=== PATIENT | male | born 1940 | race Caucasian/White ===

== ENCOUNTER → 2019-08-07 | Outpatient (CLI) | payer MEDICARE ==
--- NOTE | 2019-08-08 19:14 | RADIOLOGY REPORT (SQ) ---
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 TECHNIQUE: Blood glucose level was verified. Above dose of FDG was injected intravenously. 2-D seg mented attenuation correction images were obtained from the base of the skull to the midthighs. Nonc ontrast CT images were obtained for attenuation correction and fusion with emission images. CT image s were performed without oral or intravenous contrast and are not sensitive for parenchymal lesions. A series of overlapping emission PET images were obtained. Images reviewed and manipulated at [facility] work station by the radiologist. Images stored on PACS. LIMITATIONS: None. FINDINGS: HEAD AND NECK: No areas of abnormal metabolic activity in the soft tissues of the head and neck. CHEST: A spiculated left lower lobe nodule is present on axial image 96/303, 2 cm in diameter with PEREZ V of 8.8, highly suspicious for malignancy. No left hilar or mediastinal metabolically active enlarged lymph nodes. Patient is post right-sided radiation therapy with bandlike scarring in the right mid lung. Radiothe rapy treatment markers over the anterior right upper lobe are present on image 73 without recurrent m ass. No abnormal metabolic activity over the right hilum. There is a moderate size right pleural effusion. No right pleural metabolic activity is seen ABDOMEN AND PELVIS: No areas of abnormal metabolic activity in the abdomen or pelvis. Expected physi ologic activity is present in the genitourinary system and bowel. PROXIMAL LOWER EXTREMITIES: No areas of abnormal metabolic activity in the soft tissues of the lower extremities. BONES: No abnormal metabolic activity in the visualized skeleton. ADDITIONAL CT FINDINGS: Gynecomastia. Aortic valve replacement. 6 cm right midpole renal cortical c yst OTHER: Liver background activity 2.6 SUV. Blood pool background activity 2.0 SUV IMPRESSION: New 2 cm spiculated nodule in the left lower lobe with SUV of 8.8 highly suspicious for malignancy. Moderate right pleural effusion with old post therapeutic changes in the right hemithorax. No hyperm etabolic lesions in the right chest worrisome for recurrent disease. TECHNICAL DOCUMENTATION: JOB ID: [id number] [employer]- All Rights Reserved Reading location - IP/workstation name: [email or web address]
== END ==
LOC: RAD 15:40
PROVIDERS: ATTEND Internal Medicine
DX: C34.2 Malignant neoplasm of middle lobe, bronchus or lung (principal)
CPT/HCPCS: 78815; A9552

== ENCOUNTER → 2019-11-22 | Outpatient (CLI) | payer MEDICARE ==
[2019-11-22 08:50] LABS: ABSOLUTE BASOPHILS # (AUTO) 0.1 10^3/uL (0.0-0.2); ABSOLUTE EOSINOPHILS # (AUTO) 0.2 10^3/uL (0.0-0.6); ABSOLUTE LYMPHOCYTES (AUTO) 1.2 10^3/uL (0.5-4.7); ABSOLUTE MONOCYTES (AUTO) 0.6 10^3/uL (0.1-1.4); ABSOLUTE NEUT (AUTO) 7.7 10^3/uL (1.7-8.2); BASOPHILS % (AUTO) 0.8 % (0-2); EOSINOPHILS % (AUTO) 1.8 % (0-6); HEMATOCRIT 43.8 % (37.9-51.0); LYMPHOCYTES % (AUTO) 12.3 % (13-45); MEAN CORPUSCULAR HEMOGLOBIN 31.9 pg (27.0-33.4); MEAN CORPUSCULAR HGB CONC 34.3 g/dL (32.0-36.0); MEAN CORPUSCULAR VOLUME 93 fl (80-97); MONOCYTES % (AUTO) 6.3 % (3-13); PLATELET COUNT 199 10^3/uL (150-450); RED BLOOD COUNT 4.72 10^6/uL (4.35-5.55); SEGMENTED NEUTROPHILS % (AUTO) 78.8 % (42-78); TOTAL CELLS COUNTED % (AUTO) 100 %; WHITE BLOOD COUNT 9.7 10^3/uL (4.0-10.5)
[2019-11-22 09:11] LABS: ALKALINE PHOSPHATASE 85 U/L (38-126); ANION GAP 6 (5-19); ASPARTATE AMINO TRANSFERASE 26 U/L (17-59); BILIRUBIN,DIRECT 0.3 mg/dL (0.0-0.4); BILIRUBIN,TOTAL 0.5 mg/dL (0.2-1.3); BLOOD UREA NITROGEN 22 mg/dL (7-20); CALCIUM 9.6 mg/dL (8.4-10.2); CARBON DIOXIDE 31 mmol/L (22-30); CHLORIDE 105 mmol/L (98-107); CHOLESTEROL 181.13 mg/dL (0-200); GLUCOSE 108 mg/dL (75-110); POTASSIUM 4.9 mmol/L (3.6-5.0); TOTAL PROTEIN 7.4 g/dL (6.3-8.2); TRIGLYCERIDES 161 mg/dL (<150)
[2019-11-22 09:22] LABS: DIRECT LDL 97 mg/dL (<100)
[2019-11-22 09:28] LABS: VLDL CHOLESTEROL 32.2 mg/dL (10-31)
--- NOTE | 2019-11-22 12:10 | RADIOLOGY REPORT (SQ) ---
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 TECHNIQUE: CT scan of the chest performed using helical scanning technique with dynamic intravenous contrast injection. Images reviewed with lung, soft tissue and bone windows. Reconstructed coronal a nd sagittal MPR images reviewed. All images stored on PACS. CT scan of the abdomen and pelvis performed with intravenous and with oral contrastusing helical scan ghada technique with dynamic intravenous contrast injection. Images reviewed with lung, soft tissue a nd bone windows. Reconstructed coronal and sagittal MPR images reviewed. Delayed images for evaluat ion of the urinary system also acquired and evaluated. All images stored on PACS. All CT scanners at this facility use dose modulation, iterative reconstruction, and/or weight based d osing when appropriate to reduce radiation dose to as low as reasonably achievable (ALARA). [facility]: Dose Right [facility]: CareDose [facility]: Dose Right [facility]: Teradose 4D [facility]: [employer] RADIATION DOSE: CT Rad equipment meets quality standard of care and radiation dose reduction techniq ues were employed. CTDIvol: 9.5 - 9.8 mGy. DLP: 1444 mGy-cm. . LIMITATIONS: None. FINDINGS: CHEST: LUNGS AND PLEURA: Scar in the right upper lobe with regional air bronchograms and associated volume l oss, density extending along the bronchovascular structures. This looks stable compared to July. Stable moderate right pleural effusion also noted. Spiculated nodule in the left lower lobe looks slightly smaller. On today's study this is up to 1.7 cm transverse dimension. Previously just over 2 cm maximal dimension. No developing left lung lesions. HILAR AND MEDIASTINAL STRUCTURES: No identified masses or abnormal nodes. HEART AND VASCULAR STRUCTURES: Previous aortic surgery. The ascending aorta is mildly ectatic at 3.9 cm. This looks stable, however. No dissection. Great vessel origins are patent. No central pulmo nary embolus detected. No pericardial effusion. HARDWARE: None. THYROID AND OTHER SOFT TISSUES: No masses. No adenopathy. BONES: No significant finding. OTHER: No other significant finding. ABDOMEN AND PELVIS: LIVER: Normal size. No masses. No dilated ducts. SPLEEN: Normal size. No focal lesions. PANCREAS: No masses. No significant calcifications. No adjacent inflammation or peripancreatic fluid collections. Pancreatic duct not dilated. GALLBLADDER: No identified stones by CT criteria. No inflammatory changes to suggest cholecystitis. ADRENAL GLANDS: No significant masses or asymmetry. RIGHT KIDNEY AND URETER: Cysts. No solid mass or large stones or evidence of obstruction. LEFT KIDNEY AND URETER: Similar findings to the right kidney. AORTA AND VESSELS: Atherosclerotic without aneurysm or dissection. No arterial occlusion. The venou s clot detected. RETROPERITONEUM: No retroperitoneal adenopathy, hemorrhage or masses. BOWEL AND PERITONEAL CAVITY: No masses or inflammatory changes. No free fluid or peritoneal masses. APPENDIX: Normal. ABDOMINAL WALL: No masses. No hernias. PELVIS: No mass or free fluid. Normal bladder. BONES: No significant or acute findings. OTHER: No other significant finding. IMPRESSION: 1. Left lung lesion that looks slightly smaller compared to July PET study. 2. Remaining lung changes are stable. Includes scarring in the right upper lobe with moderate right pleural effusion, as before. 3. No developing abdominopelvic metastases suggested. TECHNICAL DOCUMENTATION: JOB ID: [id number] Quality ID # [id number]: Final reports with documentation of one or more dose reduction techniques (e.g., Au tomated exposure control, adjustment of the mA and/or kV according to patient size, use of iterative reconstruction technique) 2010 [employer]- All Rights Reserved Reading location - IP/workstation name: [email or web address]
== END ==
LOC: RAD 08:14
PROVIDERS: ATTEND Internal Medicine
DX: C34.2 Malignant neoplasm of middle lobe, bronchus or lung (principal); E78.5 Hyperlipidemia, unspecified; J44.9 Chronic obstructive pulmonary disease, unspecified; I25.10 Atherosclerotic heart disease of native coronary artery without angina pectoris; Z79.899 Other long term (current) drug therapy; I35.0 Nonrheumatic aortic (valve) stenosis
CPT/HCPCS: 36415; 71260; 74177; 80053; 80061; 83735; 84443; 85025

== ENCOUNTER 2019-12-13 15:22 | Inpatient (IN) | payer MEDICARE ==
[2019-12-13 15:55] LABS: HEMATOCRIT 36.7 % (37.9-51.0); HEMOGLOBIN 12.4 g/dL (13.5-17.0); MEAN CORPUSCULAR HEMOGLOBIN 31.1 pg (27.0-33.4); MEAN CORPUSCULAR HGB CONC 33.8 g/dL (32.0-36.0); MEAN CORPUSCULAR VOLUME 92 fl (80-97); PLATELET COUNT 129 10^3/uL (150-450); RED BLOOD COUNT 3.99 10^6/uL (4.35-5.55); RED CELL DISTRIBUTION WIDTH 14.7 % (11.5-14.0); WHITE BLOOD COUNT 15.4 10^3/uL (4.0-10.5)
--- NOTE | 2019-12-13 15:59 | RADIOLOGY REPORT (SQ) ---
EXAM DESCRIPTION: CHEST SINGLE VIEW COMPLETED DATE/TIME: 12/13/2019 3:37 pm REASON FOR STUDY: sob COMPARISON: Chest CT 11/22/2019. EXAM PARAMETERS: NUMBER OF VIEWS: One view. TECHNIQUE: Single frontal radiographic view of the chest acquired. RADIATION DOSE: NA LIMITATIONS: None. FINDINGS: LUNGS AND PLEURA: Pleural and parenchymal scarring in the right lung status post partial r ight pneumonectomy. No evidence of superimposed pneumonia or pulmonary edema. MEDIASTINUM AND HILAR STRUCTURES: Stable. HEART AND VASCULAR STRUCTURES: Heart normal in size. Normal vasculature. BONES: No acute findings. HARDWARE: None in the chest. OTHER: No other significant finding. IMPRESSION: Postsurgical and radiation changes. TECHNICAL DOCUMENTATION: JOB ID: [id number] 2010 [employer]- All Rights Reserved Reading location - IP/workstation name: [email or web address]
[2019-12-13 16:03] LABS: PROTHROMBIN TIME 17.3 SEC (11.4-15.4)
[2019-12-13 16:10] LABS: ALBUMIN 3.4 g/dL (3.5-5.0); ALKALINE PHOSPHATASE 88 U/L (38-126); ANION GAP 11 (5-19); ASPARTATE AMINO TRANSFERASE 38 U/L (17-59); BILIRUBIN,DIRECT 0.5 mg/dL (0.0-0.4); BILIRUBIN,TOTAL 1.1 mg/dL (0.2-1.3); BLOOD UREA NITROGEN 38 mg/dL (7-20); CALCIUM 8.4 mg/dL (8.4-10.2); CARBON DIOXIDE 24 mmol/L (22-30); CHLORIDE 96 mmol/L (98-107); GLUCOSE 97 mg/dL (75-110); POTASSIUM 4.2 mmol/L (3.6-5.0); TOTAL PROTEIN 6.5 g/dL (6.3-8.2)
--- NOTE | 2019-12-13 16:17 | ER Document Report ---
ED Medical Screen (RME) - General Chief Complaint: Shortness Of Breath Stated Complaint: SHORTNESS OF BREATH/ALTERED MENTAL STATUS Time Seen by Provider: 12/13/19 16:09 Primary Care Provider: AYAN YA MD [Primary Care Provider] - Follow up as needed Information source: Transfer Record Notes: Patient presents with shortness of breath that started yesterday. Patient has had dark urine that is malodorous. Patient with a history of lung cancer and COPD. Patient had a temperature at home of 101 and was given Tylenol per EMS. I have greeted and performed a rapid initial assessment of this patient. A comprehensive ED assessment and evaluation of the patient, analysis of test resu lts and completion of the medical decision making process will be conducted by additional ED providers. TRAVEL OUTSIDE OF THE [place] IN LAST 30 DAYS: No - Related Data Allergies/Adverse Reactions: No Known Allergies Allergy (Verified 12/13/19 16:03) Physical Exam - Respiratory Respiratory status: Tachypnea Breath sounds: Nonproductive cough Course - Laboratory Result Diagrams: 12/13/19 15:28 12/13/19 15:28 Laboratory results interpreted by me: 12/13/19 12/13/19 15:28 15:28 PT 17.3 H Sodium 130.8 L Chloride 96 L BUN 38 H Creatinine 1.45 H Est GFR ( Amer) 57 L Est GFR (MDRD) Non-Af 47 L Direct Bilirubin 0.5 H Albumin 3.4 L Doctor's Discharge - Discharge Referrals: AYAN YA MD [Primary Care Provider] - Follow up as needed
[2019-12-13] MEDS ORDERED: ALBUTEROL SULFATE HFA (90 MCG/PUFF) 8 GM MDI (1 MDI/ER DISP) IH ONE (16:18)
[2019-12-13] MEDS ORDERED: NORMAL SALINE 1000 ML 1,000 ML IV ONE ×3 (16:18→22:03)
[2019-12-13 16:38] LABS: ABSOLUTE MONOCYTES # (MANUAL) 0.9 10^3/uL (0.1-1.4); BAND NEUTROPHILS % (MANUAL) 9 % (3-5); BASOPHILS % (MANUAL) 0 % (0-2); EOSINOPHILS % (MANUAL) 0 % (0-6); LYMPHOCYTES % (MANUAL) 13 % (13-45); MONOCYTES % (MANUAL) 6 % (3-13); SEGMENTED NEUTROPHILS % (MAN) 69 % (42-78); TOTAL CELLS COUNTED 100
[2019-12-13 16:40] LABS: ANISOCYTOSIS SLIGHT; OVALOCYTES SLIGHT; PLATELET COMMENT ADEQUATE; PLATELET LARGE PRESENT; POIKILOCYTOSIS SLIGHT
[2019-12-13 16:41] LABS: METAMYELOCYTES % (MANUAL) 3 % (0-1)
[2019-12-13 16:49] LABS: VENOUS BLOOD BASE EXCESS -2.1 mmol/L; VENOUS BLOOD PCO2 46.4 mmHg (35-63); VENOUS BLOOD PH 7.33 (7.30-7.42)
--- NOTE | 2019-12-13 17:15 | ER Document Report ---
ED General - General Chief Complaint: Shortness Of Breath Stated Complaint: SHORTNESS OF BREATH/ALTERED MENTAL STATUS Time Seen by Provider: 12/13/19 16:09 Primary Care Provider: AYAN YA MD [Primary Care Provider] - Follow up as needed Information source: Patient TRAVEL OUTSIDE OF THE [place] IN LAST 30 DAYS: No - HPI Onset: Other - over the last several days Onset/Duration: Gradual Quality of pain: Achy Severity: Moderate Pain Level: 2 Associated symptoms: Chills, Fever, Weakness, Other - burning with urination Exacerbated by: Denies Relieved by: Denies Similar symptoms previously: No Recently seen / treated by doctor: No Notes: 79 year old male with a history of Lung Cancer s/p Lobectomy who is currently on Chemotherapy (next session is in December), COPD, HTN, HLD here for several days of weakness, fevers, burning with urination. The patient denies known sick contacts or recent travel. The patient denies significant cough, congestion, or sore throat. The patient always has a slight cough and mild SOB due to his COPD and Lung Cancer but these are not worse today according to him. EMS gave the patient a neb, IV fluids, and Tylenol (patient had a fever to 101F) prior to ER arrival. - Related Data Allergies/Adverse Reactions: No Known Allergies Allergy (Verified 12/13/19 16:03) Past Medical History - General Information source: Patient, Transfer Record - Social History Smoking Status: Former Smoker Frequency of alcohol use: None Drug Abuse: None Lives with: Spouse/Significant other Family History: Reviewed & Not Pertinent Patient has suicidal ideation: No Patient has homicidal ideation: No Pulmonary Medical History: Reports: Hx COPD Malignancy Medical History: Reports Hx Lung Cancer Review of Systems - Review of Systems Constitutional: Fever, Weakness EENT: No symptoms reported Cardiovascular: No symptoms reported Respiratory: Cough, Short of breath Gastrointestinal: No symptoms reported Genitourinary: Dysuria, Other - homar colored urine Male Genitourinary: No symptoms reported Musculoskeletal: No symptoms reported Skin: No symptoms reported Hematologic/Lymphatic: No symptoms reported Neurological/Psychological: Confusion -: Yes All other systems reviewed and negative Physical Exam - Vital signs Vitals: Pulse Ox 94 12/13/19 15:23 - Notes Notes: GENERAL: Chronically ill-appearing, but in no acute distress. HEAD: Atraumatic, normocephalic. EYES: Pupils equal round and reactive to light, extraocular movements intact, sclera anicteric, conjunctiva are normal. ENT: Nares patent, oropharynx clear without exudates. Moist mucous membranes. NECK: Normal range of motion, supple without lymphadenopathy or JVD. LUNGS: Breath sounds clear to auscultation bilaterally and equal. No wheezes rales or rhonchi. HEART: Regular rate and rhythm without murmurs, rubs or gallops. ABDOMEN: Soft, nontender, normoactive bowel sounds. No guarding, no rebound. No masses appreciated. EXTREMITIES: Normal range of motion, no pitting or edema. No clubbing or cy anosis. NEUROLOGICAL: Cranial nerves II through XII grossly intact. Normal speech, normal gait. PSYCH: Normal mood, normal affect. SKIN: Warm, Dry, normal turgor, no rashes or lesions noted. Course - Re-evaluation Re-evalutation: 12/13/19 19:51 The patient had a fever with EMS and he was hypotensive. Patient continued to have hypotensive events in the ER which were fairly fluid responsive. Patient found to have a UTI and he meets sepsis criteria based on a known source, elevated WBC count, fever with EMS and hypotensive events.. Blood and Urine Cultures pending. Patient started on Rocephin. Will continue IV fluids and monit or for need of pressors. Patient admitted to IMCU. The patient is an apparent COVID19 rule out as his outpatient provider ordered this. - Vital Signs Vital signs: Temp Pulse Resp BP Pulse Ox 98.5 F 21 H 97/49 L 99 12/13/19 19:02 12/13/19 17:01 12/13/19 19:02 12/13/19 19:02 - Laboratory Result Diagrams: 12/13/19 15:28 12/13/19 15:28 Laboratory results interpreted by me: 12/13/19 12/13/19 12/13/19 15:28 15:28 15:28 WBC 15.4 H RBC 3.99 L Hgb 12.4 L Hct 36.7 L RDW 14.7 H Plt Count 129 L Band Neutrophils % 9 H Metamyelocytes % 3 H Abs Neuts (Manual) 12.5 H PT 17.3 H Sodium 130.8 L Chloride 96 L BUN 38 H Creatinine 1.45 H Est GFR ( Amer) 57 L Est GFR (MDRD) Non-Af 47 L Direct Bilirubin 0.5 H NT-Pro-B Natriuret Pep Albumin 3.4 L Urine Protein Urine Blood Urine Urobilinogen Ur Leukocyte Esterase 12/13/19 12/13/19 15:28 17:26 WBC RBC Hgb Hct RDW Plt Count Band Neutrophils % Metamyelocytes % Abs Neuts (Manual) PT Sodium Chloride BUN Creatinine Est GFR ( Amer) Est GFR (MDRD) Non-Af Direct Bilirubin NT-Pro-B Natriuret Pep 4360 H Albumin Urine Protein 30 H Urine Blood MODERATE H Urine Urobilinogen 2.0 H Ur Leukocyte Esterase LARGE H - Diagnostic Test Radiology reviewed: Image reviewed, Reports reviewed - EKG Interpretation by Me EKG shows normal: P[place] Rate: Normal Rhythm: Other - PACED Additional EKG results interpreted by me: 12/13/19 17:54 Wide QRS Complex Discharge - Discharge Clinical Impression: UTI (urinary tract infection) Qualifiers: Urinary tract infection type: site unspecified Hematuria presence: without hematuria Qualified Code(s): N39.0 - Urinary tract infection, site not specified Sepsis Qualifiers: Sepsis type: sepsis due to unspecified organism Sepsis acute organ dysfunction status: with acute organ dysfunction Severe sepsis acute organ dysfunction type: acute renal failure Acute renal failure type: unspecified Severe sepsis shock status: unspecified Qualified Code(s): A41.9 - Sepsis, unspecified organism; R 65.20 - Severe sepsis without septic shock; N17.9 - Acute kidney failure, unspecified Condition: Fair Disposition: ADMITTED INPATIENT Admitting Provider: Pawel (Hospitalist) Unit Admitted: IMCU Referrals: AYAN YA MD [Primary Care Provider] - Follow up as needed
[2019-12-13 18:18] LABS: APPEARANCE,URINE CLOUDY; BILIRUBIN,URINE NEGATIVE (NEGATIVE); COLOR,URINE YELLOW; GLUCOSE, URINE NEGATIVE (NEGATIVE); KETONES,URINE NEGATIVE (NEGATIVE); LEUKOCYTE ESTERASE,URINE LARGE (NEGATIVE); NITRITE,URINE NEGATIVE (NEGATIVE); PROTEIN,URINE 30 mg/dL (NEGATIVE)
[2019-12-13 18:21] LABS: A TYPE INFLUENZA AG NEGATIVE (NEGATIVE); B INFLUENZA AG NEGATIVE (NEGATIVE)
[2019-12-13] MEDS ORDERED: LEVOFLOXACIN 750 MG/D5W RTU 150 ML IV ONE (18:28)
[2019-12-13] MEDS ORDERED: CEFTRIAXONE 1 GM/D5W RTU 1 GM/50 ML RTUPB IV ONE (18:31)
--- NOTE | 2019-12-13 19:01 | EKG REPORT ---
SEVERITY:- ABNORMAL ECG - COMPLETE AV BLOCK WITH WIDE QRS COMPLEX : Confirmed by: Juan Franco MD 13-Dec-2019 19:00:04
[2019-12-13] MEDS ORDERED: IPRATROPIUM/ALBUTEROL 0.5-2.5 MG/3 ML AMPUL NEB PRN (19:56)
[2019-12-13] MEDS ORDERED: ACETAMINOPHEN 325 MG TABLET PO PRN (19:56)
[2019-12-13] MEDS ORDERED: MAG HYDROX/AL HYDROX/SIMETH SUSP 30 ML UDCUP PO PRN (19:56)
[2019-12-13] MEDS ORDERED: NORMAL SALINE 1000 ML 1,000 ML IV SCH (20:00)
[2019-12-13] MEDS ORDERED: VANCOMYCIN HCL 0 MG in DEXTROSE 5%-WATER 250 ML IV NR (20:00)
[2019-12-13] MEDS ORDERED: VANCOMYCIN HCL 1,000 MG in DEXTROSE 5%-WATER 250 ML IV ONE (21:00)
[2019-12-14] MEDS ORDERED: LIDOCAINE 2% URO-JET 5 ML KIT ONE (00:40)
[2019-12-14] MEDS ORDERED: LIDOCAINE 2% URO-JET 5 ML KIT MM ONE (01:00)
[2019-12-14] MEDS: NORMAL SALINE 1000 ML 1,000 ML IV PRN ×2 (01:15→06:00)
[2019-12-14] MEDS: HEPARIN SOD (PORCINE) 5,000 UNIT/ML 1 ML VIAL SUBCUT SCH ×4 (02:39→23:55)
--- NOTE | 2019-12-14 03:20 | PDOC H&P ---
History of Present Illness Admission Date/PCP: 12/13/19 20:15 AYAN YA MD Patient complains of: Pain in urination History of Present Illness: CORBY GROVES is a 79 year old male with a past medical history which is obtained by the record as the patient has baseline confusion history of lung cancer status post lobectomy with current chemotherapy and radiation. History of present illness is obtained by emergency room provider and nursing. He presented with worsening shortness of breath from baseline prompting a primary care evaluation for covid which is pending. He otherwise presents with fever and dysuria. In the emergency department he is found to have fever, hypotension, tachycardia, and dysuria. He awake and alert but vague denying complaints or pain, denies shortness of breath, his chest x-ray shows COPD and scarring with chronic changes. He is placed on coated precautions he receives treatment of UTI with sepsis and is referred to the hospitalist for admission. Past Medical History Pulmonary Medical History: Reports: Chronic Obstructive Pulmonary Disease (COPD) Malignancy Medical History: Reports: Lung Cancer Past Surgical History Past Surgical History: Reports: Other - Lobectomy Social History Information Source: Emergency Med Personnel Lives with: Spouse/Significant other Smoking Status: Former Smoker Frequency of Alcohol Use: None Hx Recreational Drug Use: No Drugs: None Hx Prescription Drug Abuse: No - Advance Directive Resuscitation Status: Full Code Family History Family History: Other Parental Family History Reviewed: Yes Children Family History Reviewed: Yes Sibling(s) Family History Reviewed.: Yes Medication/Allergy Allergies/Adverse Reactions: Penicillins Adverse Reaction (Intermediate, Verified 12/13/19 23:32) Review of Systems ROS unobtainable: Due to mental status - Unobtainable Physical Exam Vital Signs: Temp Pulse Resp BP Pulse Ox 98.4 F 62 28 H 107/80 98 12/14/19 00:03 12/14/19 00:03 12/14/19 00:03 12/14/19 00:03 12/14/19 00:03 Intake & Output 12/12/19 12/13/19 12/14/19 11:59 11:59 11:59 Intake Total 3300 Balance 3300 Weight 84.1 kg General appearance: PRESENT: cooperative, mild distress, thin, well-developed, well-nourished Head exam: PRESENT: atraumatic, normocephalic Eye exam: PRESENT: conjunctiva pink, EOMI, PERRLA. ABSENT: scleral icterus Ear exam: PRESENT: normal external ear exam Mouth exam: PRESENT: dry mucosa, neck supple. ABSENT: moist Neck exam: ABSENT: carotid bruit, JVD, lymphadenopathy, thyromegaly Respiratory exam: PRESENT: clear to auscultation donal, crackles, prolonged expiratory phas. ABSENT: rales, rhonchi, wheezes Cardiovascular exam: PRESENT: RRR. ABSENT: diastolic murmur, rubs, systolic murmur Pulses: PRESENT: normal dorsalis pedis pul Vascular exam: PRESENT: normal capillary refill GI/Abdominal exam: PRESENT: normal bowel sounds, soft. ABSENT: distended, guarding, mass, organolmegaly, rebound, tenderness Rectal exam: PRESENT: deferred Extremities exam: PRESENT: full ROM. ABSENT: calf tenderness, clubbing, pedal edema Neurological exam: PRESENT: alert, altered, awake, oriented to person, oriented to place, CN II-XII grossly intact. ABSENT: motor sensory deficit Psychiatric exam: PRESENT: appropriate affect, normal mood, unusual affect. ABSENT: homicidal ideation, suicidal ideation Skin exam: PRESENT: dry, intact, warm. ABSENT: cyanosis, rash Results Laboratory Results: 12/13/19 15:28 12/13/19 15:28 12/13/19 12/13/19 12/13/19 15:28 15:28 15:28 WBC 15.4 H RBC 3.99 L Hgb 12.4 L Hct 36.7 L MCV 92 MCH 31.1 MCHC 33.8 RDW 14.7 H Plt Count 129 L Seg Neutrophils % Not Reportable VBG pH VBG pCO2 VBG HCO3 VBG Base Excess Sodium 130.8 L Potassium 4.2 Chloride 96 L Carbon Dioxide 24 Anion Gap 11 BUN 38 H Creatinine 1.45 H Est GFR ( Amer) 57 L Glucose 97 Lactic Acid Calcium 8.4 Magnesium 2.1 Total Bilirubin 1.1 AST 38 Alkaline Phosphatase 88 Total Protein 6.5 Albumin 3.4 L Urine Color Urine Appearance Urine pH Ur Specific [place] Urine Protein Urine Glucose (UA) Urine Ketones Urine Blood Urine Nitrite Ur Leukocyte Esterase Urine WBC (Auto) Urine RBC (Auto) 12/13/19 12/13/19 12/13/19 16:38 16:38 17:26 WBC RBC Hgb Hct MCV MCH MCHC RDW Plt Count Seg Neutrophils % VBG pH 7.33 VBG pCO2 46.4 VBG HCO3 24.0 VBG Base Excess -2.1 Sodium Potassium Chloride Carbon Dioxide Anion Gap BUN Creatinine Est GFR ( Amer) Glucose Lactic Acid 2.0 Calcium Magnesium Total Bilirubin AST Alkaline Phosphatase Total Protein Albumin Urine Color YELLOW Urine Appearance CLOUDY Urine pH 5.0 Ur Specific [place] 1.010 Urine Protein 30 H Urine Glucose (UA) NEGATIVE Urine Ketones NEGATIVE Urine Blood MODERATE H Urine Nitrite NEGATIVE Ur Leukocyte Esterase LARGE H Urine WBC (Auto) >182 Urine RBC (Auto) 3 12/13/19 12/13/19 20:14 21:21 WBC RBC Hgb Hct MCV MCH MCHC RDW Plt Count Seg Neutrophils % VBG pH VBG pCO2 VBG HCO3 VBG Base Excess Sodium Potassium Chloride Carbon Dioxide Anion Gap BUN Creatinine Est GFR ( Amer) Glucose Lactic Acid 1.8 3.5 H Calcium Magnesium Total Bilirubin AST Alkaline Phosphatase Total Protein Albumin Urine Color Urine Appearance Urine pH Ur Specific [place] Urine Protein Urine Glucose (UA) Urine Ketones Urine Blood Urine Nitrite Ur Leukocyte Esterase Urine WBC (Auto) Urine RBC (Auto) 12/13/19 12/13/19 12/13/19 15:28 15:28 19:20 Troponin I 0.092 0.075 NT-Pro-B Natriuret Pep 4360 H Impressions: Chest X-Ray 12/13/19 15:28 IMPRESSION: Postsurgical and radiation changes. Assessment and Plan - Diagnosis (1) UTI (urinary tract infection) Qualifiers: Urinary tract infection type: site unspecified Hematuria presence: without hematuria Qualified Code(s): N39.0 - Urinary tract infection, site not specified Is this a current diagnosis for this admission?: Yes Plan: Likely pyelonephritis complicated by immunosuppression on chemotherapy. Empiric antibiotics initiated. Follow-up CBC, urine and blood culture (2) Acute renal failure Is this a current diagnosis for this admission?: Yes Plan: Most likely secondary to sepsis with hypotension, IV fluid challenge, avoid nephrotoxic meds and doses follow-up chemistry (3) Encephalopathy acute Is this a current diagnosis for this admission?: Yes Plan: Acute metabolic encephalopathy likely secondary to acute illness. Follow-up with family for baseline status, avoid narcotics or psychotropics (4) COPD (chronic obstructive pulmonary disease) Is this a current diagnosis for this admission?: Yes Plan: Appears in no distress and likely baseline, albuterol and Atrovent ordered every 12 with incentive spirometry (5) CVID (common variable immunodeficiency) Is this a current diagnosis for this admission?: Yes Plan: Covid 19 precautions given reported test pending. Supportive care however no shortness of breath or cough present. (6) Sepsis Qualifiers: Sepsis type: sepsis due to unspecified organism Sepsis acute organ dysfunction status: with acute organ dysfunction Severe sepsis acute organ dysfunction type: acute renal failure Acute renal failure type: unspecified Severe sepsis shock status: unspecified Qualified Code(s): A41.9 - Sepsis, unspecified organism; R65.20 - Severe sepsis without septic shock; N17.9 - Acute kidney failure, unspecified Is this a current diagnosis for this admission?: Yes Plan: Secondary to #1, IV fluid challenge, follow-up CBC, blood culture and lactic acid - Time Time Spent with patient: 25-34 minutes - Inpatient Certification Medical Necessity: Need Close Monitoring Due to Risk of Patient Decompensation
[2019-12-14 08:21] LABS: HEMATOCRIT 30.4 % (37.9-51.0); HEMOGLOBIN 10.5 g/dL (13.5-17.0); MEAN CORPUSCULAR HEMOGLOBIN 31.9 pg (27.0-33.4); MEAN CORPUSCULAR HGB CONC 34.5 g/dL (32.0-36.0); MEAN CORPUSCULAR VOLUME 92 fl (80-97); RED CELL DISTRIBUTION WIDTH 14.9 % (11.5-14.0); WHITE BLOOD COUNT 9.6 10^3/uL (4.0-10.5)
[2019-12-14 08:29] LABS: ANION GAP 5 (5-19); BLOOD UREA NITROGEN 28 mg/dL (7-20); CALCIUM 7.7 mg/dL (8.4-10.2); CARBON DIOXIDE 24 mmol/L (22-30); CHLORIDE 105 mmol/L (98-107); GLUCOSE 94 mg/dL (75-110); POTASSIUM 4.1 mmol/L (3.6-5.0)
[2019-12-14 09:08] LABS: PLATELET COUNT 99 10^3/uL (150-450)
[2019-12-14 09:10] LABS: ABSOLUTE LYMPHOCYTES# (MANUAL) 0.6 10^3/uL (0.5-4.7); ABSOLUTE MONOCYTES # (MANUAL) 0.3 10^3/uL (0.1-1.4); BASOPHILS % (MANUAL) 0 % (0-2); EOSINOPHILS % (MANUAL) 0 % (0-6); LYMPHOCYTES % (MANUAL) 6 % (13-45); MONOCYTES % (MANUAL) 3 % (3-13); SEGMENTED NEUTROPHILS % (MAN) 91 % (42-78); TOTAL CELLS COUNTED 100
[2019-12-14 09:11] LABS: ANISOCYTOSIS SLIGHT; OVALOCYTES SLIGHT; PLATELET COMMENT DECREASED; POLYCHROMASIA SLIGHT; TEAR DROP CELLS SLIGHT; TOXIC GRANULATION SLIGHT
[2019-12-14] MEDS: DOCUSATE SODIUM 100 MG CAPSULE PO SCH ×2 (10:36→18:38)
[2019-12-14 13:31] LABS: PATH REVIEW PATHOLOGIST REVIEWED
[2019-12-14] MEDS ORDERED: NORMAL SALINE 1000 ML 1,000 ML IV PRN (13:49)
[2019-12-14] MEDS ORDERED: NORMAL SALINE 500 ML IV ONE (14:30)
--- NOTE | 2019-12-14 16:39 | PDOC PROGRESS REPORT ---
Subjective Progress Note for:: 12/14/19 Subjective:: No adverse events overnight. No new complaints. He said that he uses oxygen at home he is currently on his usual level of oxygen support. I initially thought that his breathing did not look very comfortable but he said he breathes like that all the time, and has for a few years. He says his breathing feels good to him. He says that he has bronchodilators and a CPAP at home that he also uses. No fevers. Reason For Visit: ARF SEPSIS UTI Physical Exam Vital Signs: Temp Pulse Resp BP Pulse Ox 99.4 F 62 16 112/47 L 97 12/14/19 08:11 12/14/19 12:36 12/14/19 12:36 12/14/19 08:11 12/14/19 12:36 Intake & Output 12/13/19 12/14/19 12/15/19 06:59 06:59 06:59 Intake Total 4685 2020 Output Total 110 350 Balance 4575 1670 Weight 84.1 kg General appearance: PRESENT: no acute distress, cooperative, disheveled, hard of hearing Respiratory exam: PRESENT: decreased breath sounds, prolonged expiratory phas, symmetrical, unlabored, wheezes - Faint end expiratory, likely chronic. ABSENT: accessory muscle use, chest wall tenderness, crackles, retraction, rhonchi, tachypnea Cardiovascular exam: PRESENT: RRR, +S1, +S2 Pulses: PRESENT: normal carotid pulses Vascular exam: PRESENT: normal capillary refill GI/Abdominal exam: PRESENT: normal bowel sounds, soft. ABSENT: distended, guarding, rebound, tenderness Extremities exam: ABSENT: clubbing, pedal edema Musculoskeletal exam: PRESENT: normal inspection. ABSENT: deformity Neurological exam: PRESENT: alert, awake, oriented to person, oriented to place, oriented to situation Psychiatric exam: PRESENT: appropriate affect, normal mood Skin exam: PRESENT: dry, warm Results Laboratory Results: 12/14/19 07:18 12/14/19 07:18 12/13/19 12/13/19 12/13/19 15:28 15:28 16:38 WBC 15.4 H RBC 3.99 L Hgb 12.4 L Hct 36.7 L MCV 92 MCH 31.1 MCHC 33.8 RDW 14.7 H Plt Count 129 L Seg Neutrophils % VBG pH 7.33 VBG pCO2 46.4 VBG HCO3 24.0 VBG Base Excess -2.1 Sodium Potassium Chloride Carbon Dioxide Anion Gap BUN Creatinine Est GFR ( Amer) Glucose Lactic Acid Calcium Magnesium 2.1 Urine Color Urine Appearance Urine pH Ur Specific [place] Urine Protein Urine Glucose (UA) Urine Ketones Urine Blood Urine Nitrite Ur Leukocyte Esterase Urine WBC (Auto) Urine RBC (Auto) 12/13/19 12/13/19 12/13/19 16:38 17:26 20:14 WBC RBC Hgb Hct MCV MCH MCHC RDW Plt Count Seg Neutrophils % VBG pH VBG pCO2 VBG HCO3 VBG Base Excess Sodium Potassium Chloride Carbon Dioxide Anion Gap BUN Creatinine Est GFR ( Amer) Glucose Lactic Acid 2.0 1.8 Calcium Magnesium Urine Color YELLOW Urine Appearance CLOUDY Urine pH 5.0 Ur Specific [place] 1.010 Urine Protein 30 H Urine Glucose (UA) NEGATIVE Urine Ketones NEGATIVE Urine Blood MODERATE H Urine Nitrite NEGATIVE Ur Leukocyte Esterase LARGE H Urine WBC (Auto) >182 Urine RBC (Auto) 3 12/13/19 12/14/19 12/14/19 21:21 07:18 07:18 WBC 9.6 RBC 3.30 L Hgb 10.5 L Hct 30.4 L MCV 92 MCH 31.9 MCHC 34.5 RDW 14.9 H Plt Count 99 L Seg Neutrophils % Not Reportable VBG pH VBG pCO2 VBG HCO3 VBG Base Excess Sodium 134.1 L Potassium 4.1 Chloride 105 Carbon Dioxide 24 Anion Gap 5 BUN 28 H Creatinine 0.98 Est GFR ( Amer) > 60 Glucose 94 Lactic Acid 3.5 H Calcium 7.7 L Magnesium Urine Color Urine Appearance Urine pH Ur Specific [place] Urine Protein Urine Glucose (UA) Urine Ketones Urine Blood Urine Nitrite Ur Leukocyte Esterase Urine WBC (Auto) Urine RBC (Auto) 12/14/19 08:20 WBC RBC Hgb Hct MCV MCH MCHC RDW Plt Count Seg Neutrophils % VBG pH VBG pCO2 VBG HCO3 VBG Base Excess Sodium Potassium Chloride Carbon Dioxide Anion Gap BUN Creatinine Est GFR ( Amer) Glucose Lactic Acid 0.8 Calcium Magnesium Urine Color Urine Appearance Urine pH Ur Specific [place] Urine Protein Urine Glucose (UA) Urine Ketones Urine Blood Urine Nitrite Ur Leukocyte Esterase Urine WBC (Auto) Urine RBC (Auto) 12/13/19 12/13/19 12/13/19 15:28 15:28 19:20 Troponin I 0.092 0.075 NT-Pro-B Natriuret Pep 4360 H Impressions: Chest X-Ray 12/13/19 15:28 IMPRESSION: Postsurgical and radiation changes. Assessment and Plan - Diagnosis (1) Sepsis Qualifiers: Sepsis type: sepsis due to unspecified organism Sepsis acute organ dysfunction status: with acute organ dysfunction Severe sepsis acute organ dysfunction type: acute renal failure Acute renal failure type: unspecified Severe sepsis shock status: unspecified Qualified Code(s): A41.9 - Sepsis, unspecified organism; R65.20 - Severe sepsis without septic shock; N17.9 - Acute kidney failure, unspecified Is this a current diagnosis for this admission?: Yes Plan: Acute kidney injury now resolved. On antibiotics for urinary tract infection. Cultures pending. No suspicious findings for coronavirus infection. For some reason he got tested for this in the ER. (2) UTI (urinary tract infection) Qualifiers: Urinary tract infection type: site unspecified Hematuria presence: without hematuria Qualified Code(s): N39.0 - Urinary tract infection, site not specified Is this a current diagnosis for this admission?: Yes Plan: He is on empiric antibiotics, urine culture has been sent to the lab for identification and susceptibility. 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 - Time Time Spent with patient: 15-24 minutes
[2019-12-14] MEDS: IPRATROPIUM/ALBUTEROL 0.5-2.5 MG/3 ML AMPUL NEB PRN (17:41)
[2019-12-14] MEDS ORDERED: CEFTRIAXONE 1 GM/D5W RTU 1 GM/50 ML RTUPB IV SCH (18:00)
[2019-12-14] MEDS ORDERED: VANCOMYCIN HCL 1,250 MG in DEXTROSE 5%-WATER 250 ML IV SCH (22:00)
[2019-12-14] MEDS ORDERED: DIAZEPAM INJ 10 MG/2 ML DISP.SYRIN IV ONE (23:00)
[2019-12-14] MEDS ORDERED: VANCOMYCIN HCL INJ 1000 MG VIAL ONE (23:39)
[2019-12-15] MEDS ORDERED: MORPHINE SULFATE 10 MG/ML INJ ONE ×2 (00:44→20:45)
[2019-12-15 01:59] LABS: ARTERIAL BLOOD BASE EXCESS -6.1 mmol/L; ARTERIAL BLOOD H2CO3 1.67 mmol/L (1.05-1.35); ARTERIAL BLOOD HCO3 22.3 mmol/L (20-24); ARTERIAL BLOOD O2 SATURATION 98.4 % (94-98); ARTERIAL BLOOD PCO2 55.5 mmHg (35-45); ARTERIAL BLOOD PH 7.22 (7.35-7.45); ARTERIAL BLOOD PO2 147.3 mmHg (80-100)
[2019-12-15] MEDS ORDERED: MORPHINE SULFATE 10 MG/ML INJ IV ONE ×2 (02:00→20:56)
[2019-12-15 02:04] LABS: ARTERIAL BLOOD FIO2 45%
[2019-12-15 03:04] LABS: ANION GAP 9 (5-19); BLOOD UREA NITROGEN 26 mg/dL (7-20); CALCIUM 8.4 mg/dL (8.4-10.2); CARBON DIOXIDE 22 mmol/L (22-30); CHLORIDE 104 mmol/L (98-107); GLUCOSE 99 mg/dL (75-110); POTASSIUM 4.7 mmol/L (3.6-5.0)
[2019-12-15] MEDS: IPRATROPIUM/ALBUTEROL 0.5-2.5 MG/3 ML AMPUL NEB PRN (06:24)
[2019-12-15] MEDS ORDERED: ACETAMINOPHEN 650 MG SUPP.RECT PR ONE (07:43)
[2019-12-15] MEDS ORDERED: ACETAMINOPHEN 650 MG SUPP.RECT PR PRN (08:11)
[2019-12-15] MEDS ORDERED: DIAZEPAM INJ 10 MG/2 ML DISP.SYRIN IV ONE ×2 (08:21→11:30)
[2019-12-15] MEDS ORDERED: DIAZEPAM INJ 10 MG/2 ML DISP.SYRIN IV PRN (08:21)
[2019-12-15] MEDS ORDERED: NORMAL SALINE 1000 ML 1,000 ML IV PRN (08:30)
[2019-12-15] MEDS ORDERED: IMIPENEM/CILASTATIN SODIUM INJ 500 MG VIAL IV SCH (08:30)
--- NOTE | 2019-12-15 08:40 | PDOC PROGRESS REPORT ---
Subjective Subjective:: 79 year old male with a past medical history which is obtained by the record as the patient has baseline confusion history of lung cancer status post lobectomy with current chemotherapy and radiation. History of present illness is obtained by emergency room provider and nursing. He presented with worsening shortness o f breath from baseline prompting a primary care evaluation for covid which is pending. He otherwise presents with fever and dysuria. In the emergency department he is found to have fever, hypotension, tachycardia, and dysuria. He awake and alert but vague denying complaints or pain, denies shortness of breath, his chest x-ray shows COPD and scarring with chronic changes. He is placed on coated precautions he receives treatment of UTI with sepsis and is referred to the hospitalist for admission. 12/14/19-No adverse events overnight. No new complaints. He said that he uses oxygen at home he is currently on his usual level of oxygen support. I initially thought that his breathing did not look very comfortable but he said he breathes like that all the time, and has for a few years. He says his breathing feels good to him. He says that he has bronchodilators and a CPAP at home that he also uses. No fevers. 12/15/2019-T-max is 104.3 this morning patient is combative and agitated. ABG was done pH is 7.22 with PCO2 55 PO2 125. And has history of COPD with CO2 retention. Patient is presently in restraints with one-to-one observation. Urine cultures came back positive for E. coli and Klebsiella pneumonia after discussion with the pharmacy antibiotic switched to imipenem 1 g every 6 hours. Increase the fluids to 150 cc/h and order for CT of the chest rule out PE and CT head was requested to rule out stroke. On examination neck was supple. No meningeal signs seen. Blood cultures are negative. Patient CODE STATUS full code now. To place him on BiPAP PRN. For agitation started on Valium 5 mg now and IV every 6 as needed for agitation. Repeat blood cultures are requested. Reason For Visit: ARF SEPSIS UTI Physical Exam Vital Signs: Temp Pulse Resp BP Pulse Ox 104.3 F H 97 26 H 116/53 L 97 12/15/19 06:00 12/15/19 06:26 12/15/19 06:26 12/15/19 03:07 12/15/19 06:32 Intake & Output 12/14/19 12/15/19 12/16/19 06:59 06:59 06:59 Intake Total 4685 3445 Output Total 110 550 Balance 4575 2895 Weight 84.1 kg 88.7 kg General appearance: PRESENT: other - Patient is combative uncooperative using profanity. Head exam: PRESENT: atraumatic Eye exam: PRESENT: PERRLA Mouth exam: PRESENT: moist, tongue midline Teeth exam: PRESENT: poor dentation Neck exam: PRESENT: other - Neck was supple no meningeal signs noticed.. ABSENT: JVD, lymphadenopathy Respiratory exam: PRESENT: crackles, decreased breath sounds Cardiovascular exam: PRESENT: RRR. ABSENT: diastolic murmur, rubs, systolic murmur GI/Abdominal exam: PRESENT: normal bowel sounds, soft. ABSENT: distended, guarding, mass, organolmegaly, rebound, tenderness Rectal exam: PRESENT: deferred Extremities exam: PRESENT: full ROM. ABSENT: calf tenderness, clubbing, pedal edema Neurological exam: PRESENT: other - Patient is agitated combative. No focal neurological deficits. No meningeal signs seen. Psychiatric exam: PRESENT: agitated Results Laboratory Results: 12/14/19 07:18 12/15/19 02:28 12/14/19 12/14/19 12/14/19 07:18 07:18 08:20 WBC 9.6 RBC 3.30 L Hgb 10.5 L Hct 30.4 L MCV 92 MCH 31.9 MCHC 34.5 RDW 14.9 H Plt Count 99 L Seg Neutrophils % Not Reportable Carbonic Acid HCO3/H2CO3 Ratio ABG pH ABG pCO2 ABG pO2 ABG HCO3 ABG O2 Saturation ABG Base Excess FiO2 Sodium 134.1 L Potassium 4.1 Chloride 105 Carbon Dioxide 24 Anion Gap 5 BUN 28 H Creatinine 0.98 Est GFR ( Amer) > 60 Glucose 94 Lactic Acid 0.8 Calcium 7.7 L Magnesium 12/15/19 12/15/19 12/15/19 01:40 02:28 02:57 WBC RBC Hgb Hct MCV MCH MCHC RDW Plt Count Seg Neutrophils % Carbonic Acid 1.67 H HCO3/H2CO3 Ratio 13:1 ABG pH 7.22 L ABG pCO2 55.5 H ABG pO2 147.3 H ABG HCO3 22.3 ABG O2 Saturation 98.4 H ABG Base Excess -6.1 FiO2 45% Sodium 134.7 L Potassium 4.7 Chloride 104 Carbon Dioxide 22 Anion Gap 9 BUN 26 H Creatinine 0.92 Est GFR ( Amer) > 60 Glucose 99 Lactic Acid 1.3 Calcium 8.4 Magnesium 2.3 12/13/19 17:26 Clean Catch Midstream Urine Culture - Final Klebsiella Pneumoniae Escherichia Coli 12/13/19 12/13/19 12/13/19 15:28 15:28 19:20 Troponin I 0.092 0.075 NT-Pro-B Natriuret Pep 4360 H Impressions: Chest X-Ray 12/13/19 15:28 IMPRESSION: Postsurgical and radiation changes. Assessment and Plan - Diagnosis (1) Sepsis Qualifiers: Sepsis type: sepsis due to unspecified organism Sepsis acute organ dysfunction status: with acute organ dysfunction Severe sepsis acute organ dysfunction type: acute renal failure Acute renal failure type: unspecified Severe sepsis shock status: unspecified Qualified Code(s): A41.9 - Sepsis, uns pecified organism; R65.20 - Severe sepsis without septic shock; N17.9 - Acute kidney failure, unspecified Is this a current diagnosis for this admission?: Yes Plan: Acute kidney injury now resolved. On antibiotics for urinary tract infection. Cultures pending. No suspicious findings for coronavirus infection. For some reason he got tested for this in the ER. 12/15/2019-patient admitted with sepsis. Presently on IV ceftriaxone and vanc omycin. Blood cultures are negative flu is negative. No meningeal signs seen. Patient is combative and agitated. Urine culture is growing Klebsiella pneumonia and E. coli. After discussion with the pharmacy, present antibiotics are discontinued started on imipenem 1 g every 6 hours. (2) UTI (urinary tract infection) Qualifiers: Urinary tract infection type: site unspecified Hematuria presence: without hematuria Qualified Code(s): N39.0 - Urinary tract infection, site not specified Is this a current diagnosis for this admission?: Yes Plan: He is on empiric antibiotics, urine culture has been sent to the lab for identification and susceptibility. 12/15/2019 urine cultures back positive for Klebsiella pneumonia and E. coli. Ceftriaxone and IV vancomycin is discontinued and started on imipenem. Blood cultures are requested. T-max today is 104.3. 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 12/12/2019-patient has history of COPD on home oxygen at home. Presently pulse ox is at 97% on 2 L. To continue nebulizer treatments CT of the chest was requested to rule out PE. If needed will place him on BiPAP. Patient has hist ory of using CPAP at home. (4) Acute metabolic encephalopathy Is this a current diagnosis for this admission?: Yes Plan: 12/15/2019-patient is confused and agitated. On restraints. Started on Valium IV as needed to calm him down. No history of alcohol use is known. No meningeal signs seen on examination. Acute metabolic encephalopathy most likely secondary to sepsis. Repeat blood cultures are requested. CT head was reques evelyn. CT of the chest was requested. (5) Acute renal failure Is this a current diagnosis for this admission?: Yes Plan: Most likely secondary to sepsis with hypotension, IV fluid challenge, avoid nephrotoxic meds and doses follow-up chemistry 12/15/2019-serum creatinine today 0.92. On admission creatinine is 1.45. With IV fluids SOHA is resolved. Plan is to place the Gifford's catheter back into check for the urinary output.
[2019-12-15 09:42] LABS: ABSOLUTE LYMPHOCYTES (AUTO) 0.5 10^3/uL (0.5-4.7); ABSOLUTE MONOCYTES (AUTO) 0.5 10^3/uL (0.1-1.4); ABSOLUTE NEUT (AUTO) 7.1 10^3/uL (1.7-8.2); BASOPHILS % (AUTO) 0.2 % (0-2); HEMATOCRIT 33.3 % (37.9-51.0); LYMPHOCYTES % (AUTO) 5.8 % (13-45); MEAN CORPUSCULAR HEMOGLOBIN 31.3 pg (27.0-33.4); MEAN CORPUSCULAR HGB CONC 32.9 g/dL (32.0-36.0); MEAN CORPUSCULAR VOLUME 95 fl (80-97); MONOCYTES % (AUTO) 6.6 % (3-13); PLATELET COUNT 110 10^3/uL (150-450); RED CELL DISTRIBUTION WIDTH 15.1 % (11.5-14.0); SEGMENTED NEUTROPHILS % (AUTO) 87.4 % (42-78); TOTAL CELLS COUNTED % (AUTO) 100 %; WHITE BLOOD COUNT 8.1 10^3/uL (4.0-10.5)
[2019-12-15] MEDS ORDERED: PANTOPRAZOLE SODIUM 40 MG VIAL IV SCH (10:00)
[2019-12-15] MEDS: DOCUSATE SODIUM 100 MG CAPSULE PO SCH ×2 (11:25→18:09)
[2019-12-15] MEDS: HEPARIN SOD (PORCINE) 5,000 UNIT/ML 1 ML VIAL SUBCUT SCH ×3 (14:08→22:45)
[2019-12-15] MEDS: IMIPENEM/CILASTATIN SODIUM 1,000 MG in NORMAL SALINE 250 ML IV SCH ×2 (14:51→18:37)
[2019-12-15] MEDS ORDERED: DEXTROSE 5%-LACTATED RINGERS 1,000 ML IV PRN (15:38)
[2019-12-15] MEDS ORDERED: HALOPERIDOL LACTATE INJ 5 MG/1 ML VIAL IV PRN (15:52)
--- NOTE | 2019-12-15 16:36 | RADIOLOGY REPORT (SQ) ---
EXAM DESCRIPTION: CT HEAD WITHOUT COMPLETED DATE/TIME: 12/15/2019 4:23 pm REASON FOR STUDY: altered mental status COMPARISON: None. TECHNIQUE: Axial images acquired through the brain without intravenous contrast. Images reviewed wi th bone, brain and subdural windows. Additional sagittal and coronal reconstructions were generated. Images stored on PACS. All CT scanners at this facility use dose modulation, iterative reconstruction, and/or weight based d osing when appropriate to reduce radiation dose to as low as reasonably achievable (ALARA). [facility]: Dose Right [facility]: CareDose [facility]: Dose Right [facility]: Teradose 4D [facility]: [employer] RADIATION DOSE: CT Rad equipment meets quality standard of care and radiation dose reduction techniq ues were employed. CTDIvol: 55.2 mGy. DLP: 2334 mGy-cm. mGy. LIMITATIONS: None. FINDINGS: VENTRICLES: Prominent. Of proportion to gyral atrophy CEREBRUM: No masses. No hemorrhage. No midline shift. Areas of low density in the white matter mos t likely due to chronic micro-vascular ischemic change. No evidence for acute infarction. Old left lacunar infarct. CEREBELLUM: No masses. No hemorrhage. No alteration of density. No evidence for acute infarction. EXTRAAXIAL SPACES: Mild age-related involutional change. No fluid collections. No masses. ORBITS AND GLOBE: No intra- or extraconal masses. Normal contour of globe without masses. CALVARIUM: No fracture. PARANASAL SINUSES: No fluid or mucosal thickening. SOFT TISSUES: No mass or hematoma. OTHER: No other significant finding. IMPRESSION: No acute intracranial process. Mild microvascular ischemia. Ventricular enlargement ou t of proportion to U gyral atrophy suggests possible normal pressure hydrocephalus. EVIDENCE OF ACUTE STROKE: NO. TECHNICAL DOCUMENTATION: JOB ID: [id number] Quality ID # [id number]: Final reports with documentation of one or more dose reduction techniques (e.g., Au tomated exposure control, adjustment of the mA and/or kV according to patient size, use of iterative reconstruction technique) 2010 [employer]- All Rights Reserved Reading location - IP/workstation name: [email or web address]
--- NOTE | 2019-12-15 16:50 | RADIOLOGY REPORT (SQ) ---
EXAM DESCRIPTION: CTA CHEST COMPLETED DATE/TIME: 12/15/2019 4:23 pm REASON FOR STUDY: r/o pe COMPARISON: CT chest dated 11/22/2019 TECHNIQUE: CT scan of the chest performed using helical scanning technique with dynamic intravenous contrast injection. Images reviewed with lung, soft tissue and bone windows. Reconstructed coronal and sagittal MPR images reviewed. Additional 3 dimensional post-processing performed to develop Maximal Intensity Projection images (UT P). All images stored on PACS. All CT scanners at this facility use dose modulation, iterative reconstruction, and/or weight based d osing when appropriate to reduce radiation dose to as low as reasonably achievable (ALARA). [facility]: Dose Right [facility]: CareDose [facility]: Dose Right [facility]: Teradose 4D [facility]: [email or web address] CONTRAST TYPE AND DOSE: contrast/concentration: Isovue 350.00 mg/ml; Total Contrast Delivered: 64.0 ml; Total Saline Delivered: 61.0 ml Contrast bolus optimized for the pulmonary arteries. Not diagnostic for the aorta. RENAL FUNCTION: BUN 26, creatinine 0.99 RADIATION DOSE: CT Rad equipment meets quality standard of care and radiation dose reduction techniq ues were employed. CTDIvol: 29.8 - 39.7 mGy. DLP: 1192 mGy-cm. . LIMITATIONS: None. FINDINGS: LUNGS AND PLEURA: Right-sided pleural effusion is slightly larger. Right hilar mass and p robable postradiation changes in the right upper lobe are grossly stable. The ground-glass opacity i n the left perihilar region is grossly unchanged. Left pleural effusion is new. Small pneumatocele is are noted on the left. AORTA AND GREAT VESSELS: No aneurysm. Contrast bolus not optimized for the aorta. HEART: No pericardial effusion. No significant coronary artery calcifications. PULMONARY ARTERIES: No emboli visualized in the main pulmonary arteries or the segmental branches. HILAR AND MEDIASTINAL STRUCTURES: No identified masses or abnormal nodes. HARDWARE: Unchanged. UPPER ABDOMEN: No significant findings. Limited exam. THYROID AND OTHER SOFT TISSUES: No masses. No adenopathy. BONES: No acute or significant finding. 3D MIPS: Confirm above findings. OTHER: No other significant finding. IMPRESSION: 1. Slight increase in size of the right pleural effusion. 2. Development of a small left effusion since prior study. 3. No significant interval change in lung findings. 4. No pulmonary emboli. COMMENT: Quality ID # [id number]: Final reports with documentation of one or more dose reduction techniques (e.g., Automated exposure control, adjustment of the mA and/or kV according to patient size, use of iterative reconstruction technique) TECHNICAL DOCUMENTATION: JOB ID: [id number] 2010 [employer]- All Rights Reserved Reading location - IP/workstation name: [email or web address]
--- NOTE | 2019-12-15 17:31 | RADIOLOGY REPORT (SQ) ---
EXAM DESCRIPTION: CHEST SINGLE VIEW COMPLETED DATE/TIME: 12/15/2019 5:19 pm REASON FOR STUDY: fever COMPARISON: AP view of the chest from 12/13/2019 EXAM PARAMETERS: NUMBER OF VIEWS: One view. TECHNIQUE: An AP view of the chest was obtained. RADIATION DOSE: NA LIMITATIONS: None. FINDINGS: LUNGS AND PLEURA: Increased bilateral basilar predominant (right greater than left) pleura l and parenchymal opacities that obscure the contours of the hemidiaphragms and blunt the costophreni c sulci. The volume loss in the right hemithorax is unchanged. There is re- demonstration of surgic al clips that project over the right suprahilar region and right infrahilar region. MEDIASTINUM AND HILAR STRUCTURES: Stable mediastinal and hilar contours. HEART AND VASCULAR STRUCTURES: Stable cardiac silhouette. BONES: No acute findings. HARDWARE: TAVR prosthesis. OTHER: No other finding. IMPRESSION: Increased bilateral basilar predominant (right greater than left) pleural and parenchyma l opacities that obscure the contours of the hemidiaphragms and blunt the costophrenic sulci. Differ ential considerations include multifocal pneumonia with parapneumonic effusions and pulmonary edema. TECHNICAL DOCUMENTATION: JOB ID: [id number] 2010 [employer]- All Rights Reserved Reading location - IP/workstation name: [email or web address]
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
[2019-12-15] MEDS ORDERED: FUROSEMIDE INJ/PF 40 MG/4 ML SDV IV ONE (18:20)
--- NOTE | 2019-12-15 20:13 | Progress Note ---
Provider Note Provider Note: [facility] ID Telephone Advice Consultation Chart reviewed. Patient is a 79-year-old man with lung cancer s/p lobectomy, chemotherapy and radiation who was admitted on 12/13 due to altered mental status, shortness of breath and dysuria. He had leukocytosis, thrombocytopenia, SOHA, elevated BNP up to 4,360. UA was positive for pyuria and urine culture positive for E coli and Klebsiella pneumoniae. Chest imaging demonstrated small pleural effusions. A CXR on 12/14 concerning for multifocal pneumonia. He has COPD and baseline shortness of breath. Blood cultures negative. He was started on vancomycin and ceftriaxone, but on 12/13 he started spiking a fever. No findings on abdomen CTA. Antibiotics were changed to meropenem. ID consulted for recommendations. Allergies: Penicillins Adverse Reaction (Intermediate, Verified 12/13/19 23:32) Medications: Aspirin [Adult Low Dose Aspirin EC] 81 mg PO DAILY 12/14/19 Atorvastatin Calcium [Lipitor 80 mg Tablet] 80 mg PO DAILY 12/14/19 Clopidogrel Bisulfate [Plavix 75 mg Tablet] 75 mg PO DAILY 12/14/19 Ferrous Sulfate [Ferosul] 325 mg PO DAILY 12/14/19 Ipratropium/Albuterol Sulfate [Duoneb 3 ml Ampul] 3 ml NEB RTQ6HP PRN 12/14/19 Multivitamin [Multiple Vitamins] 1 tab PO DAILY 12/14/19 Omeprazole 40 mg PO QAM 12/14/19 Oxycodone HCl [Oxy-Ir 5 mg Tablet] 10 mg PO Q4HP PRN 12/14/19 Umeclidinium [place] [Incruse Ellipta] 1 puff IH DAILY 12/14/19 Vital Signs: Temp Pulse Resp BP Pulse Ox 98.9 F 85 19 97/54 L 100 12/15/19 15:17 12/15/19 15:17 12/15/19 15:17 12/15/19 15:17 12/15/19 15:17 Intake & Output 12/14/19 12/15/19 12/16/19 06:59 06:59 06:59 Intake Total 4685 3445 115 Output Total 110 550 100 Balance 4575 2895 15 Weight 84.1 kg 88.7 kg Weight/Height Weight 88.7 kg Height 5 ft 9 in Laboratories: 12/15/19 08:06 12/15/19 02:28 MCV 95 fl (80-97) 12/15/19 08:06 MCH 31.3 pg (27.0-33.4) 12/15/19 08:06 MCHC 32.9 g/dL (32.0-36.0) 12/15/19 08:06 RDW 15.1 % (11.5-14.0) H 12/15/19 08:06 Seg Neutrophils % 87.4 % (42-78) H 12/15/19 08:06 Carbonic Acid 1.67 mmol/L (1.05-1.35) H 12/15/19 01:40 HCO3/H2CO3 Ratio 13:1 12/15/19 01:40 ABG pH 7.22 (7.35-7.45) L 12/15/19 01:40 ABG pCO2 55.5 mmHg (35-45) H 12/15/19 01:40 ABG pO2 147.3 mmHg (80-100) H 12/15/19 01:40 ABG HCO3 22.3 mmol/L (20-24) 12/15/19 01:40 ABG O2 Saturation 98.4 % (94-98) H 12/15/19 01:40 ABG Base Excess -6.1 mmol/L 12/15/19 01:40 VBG pH 7.33 (7.30-7.42) 12/13/19 16:38 VBG pCO2 46.4 mmHg (35-63) 12/13/19 16:38 VBG HCO3 24.0 mmol/L (20-32) 12/13/19 16:38 VBG Base Excess -2.1 mmol/L 12/13/19 16:38 FiO2 45% 12/15/19 01:40 Chloride 104 mmol/L (98-107) 12/15/19 02:28 Carbon Dioxide 22 mmol/L (22-30) 12/15/19 02:28 Anion Gap 9 (5-19) 12/15/19 02:28 Est GFR ( Amer) > 60 (>60) 12/15/19 02:28 Glucose 99 mg/dL (75-110) 12/15/19 02:28 Lactic Acid 1.3 mmol/L (0.7-2.1) 12/15/19 02:57 Calcium 8.4 mg/dL (8.4-10.2) 12/15/19 02:28 Magnesium 2.3 mg/dL (1.6-2.3) 12/15/19 08:06 Total Bilirubin 1.1 mg/dL (0.2-1.3) 12/13/19 15:28 AST 38 U/L (17-59) 12/13/19 15:28 Alkaline Phosphatase 88 U/L (38-126) 12/13/19 15:28 Total Protein 6.5 g/dL (6.3-8.2) 12/13/19 15:28 Albumin 3.4 g/dL (3.5-5.0) L 12/13/19 15:28 Urine Color YELLOW 12/13/19 17: Urine Appearance CLOUDY 12/13/19 17:26 Urine pH 5.0 (5.0-9.0) 12/13/19 17:26 Ur Specific [place] 1.010 12/13/19 17:26 Urine Protein 30 mg/dL (NEGATIVE) H 12/13/19 17:26 Urine Glucose (UA) NEGATIVE mg/dL (NEGATIVE) 12/13/19 17:26 Urine Ketones NEGATIVE mg/dL (NEGATIVE) 12/13/19 17:26 Urine Blood MODERATE (NEGATIVE) H 12/13/19 17:26 Urine Nitrite NEGATIVE (NEGATIVE) 12/13/19 17:26 Ur Leukocyte Esterase LARGE (NEGATIVE) H 12/13/19 17:26 Urine WBC (Auto) >182 /HPF 12/13/19 17:26 Urine RBC (Auto) 3 /HPF 12/13/19 17:26 12/13/19 17:26 Clean Catch Midstream Urine Culture - Final Klebsiella Pneumoniae Escherichia Coli 12/13/19 12/13/19 12/13/19 15:28 15:28 19:20 Troponin I 0.092 0.075 NT-Pro-B Natriuret Pep 4360 H Radiology: Chest X-Ray 12/15/19 00:00 IMPRESSION: Increased bilateral basilar predominant (right greater than left) pleural and parenchymal opacities that obscure the contours of the hemidiaphragms and blunt the costophrenic sulci. Differential considerations include multifocal pneumonia with parapneumonic effusions and pulmonary edema. Chest/Abdomen CTA 12/15/19 00:00 IMPRESSION: 1. Slight increase in size of the right pleural effusion. 2. Development of a small left effusion since prior study. 3. No significant interval change in lung findings. 4. No pulmonary emboli. Head CT 12/15/19 00:00 IMPRESSION: No acute intracranial process. Mild microvascular ischemia. Ventricular enlargement out of proportion to U gyral atrophy suggests possible normal pressure hydrocephalus. EVIDENCE OF ACUTE STROKE: NO. Assessment and Recomendations: Patient immuncompromised due to lung cancer on chemo/radiation, possible PD-L1 therapy per notes who was admitted with shortness of breath, dysuria he was found with UTI due to E coli and Klebsiella pneumoniae. He was on ceftriaxone which is adequate for this. He had a fever, for which I suspect there must be and additional process responsible for the fever other than the UTI as he was adequately covered. Due to active immunotherapy vs chemotherapy and radiation he is at risk for nosocomial infection. Other opportunistic infections as well including viral and fungal. He is on meropenem which will cover nosocomial GNRs. MRSA has not been isolated so far. Should be aware of risk of viral infection including Herpesviruses in case he becomes more encephalopatic and febrile. If pleural effusion gets worse, he might need thoracentesis. If he is on a PD-L1, these have also been associated with severe pneumonitis in case there is respiratory deterioration, can consider this possibility. He was tested for covid-19 as well. Continue meropenem for now. No evidence of perinephric abscess or pyelonephritis associated to these bacteria. Will follow. Celine Medel MD [facility] ID [phone]
[2019-12-15 22:02] LABS: ARTERIAL BLOOD BASE EXCESS -3.9 mmol/L; ARTERIAL BLOOD H2CO3 1.56 mmol/L (1.05-1.35); ARTERIAL BLOOD HCO3 23.5 mmol/L (20-24); ARTERIAL BLOOD PCO2 51.8 mmHg (35-45); ARTERIAL BLOOD PH 7.28 (7.35-7.45); ARTERIAL BLOOD PO2 67.9 mmHg (80-100); ARTERIAL BLOOD TOTAL CO2 25.1 mmol/L (23-27)
[2019-12-15 22:03] LABS: ARTERIAL BLOOD FIO2 2L
[2019-12-15] MEDS ORDERED: ETOMIDATE INJ/PF 20 MG/10 ML SDV IV ONE (23:01)
[2019-12-15] MEDS ORDERED: PROPOFOL 1,000 MG/100 ML INFUS..BTL IV ONE (23:01)
[2019-12-15] MEDS ORDERED: PROPOFOL INJ 200 MG/20 ML VIAL IV ONE (23:01)
[2019-12-15] MEDS: PROPOFOL 1,000 MG/100 ML INFUS..BTL IV PRN (23:30)
[2019-12-16] MEDS: IMIPENEM/CILASTATIN SODIUM 1,000 MG in NORMAL SALINE 250 ML IV SCH ×4 (01:00→17:17)
[2019-12-16] MEDS: RINGERS SOLUTION,LACTATED 1,000 ML IV PRN ×2 (01:15→17:17)
--- NOTE | 2019-12-16 01:15 | RADIOLOGY REPORT (SQ) ---
EXAM DESCRIPTION: X-RAY CHEST- One View CLINICAL HISTORY: Status post intubation. COMPARISON: December 15, 2019 TECHNIQUE: Single view of the chest. FINDINGS: There are overlying EKG leads. Patient is status post placement of enteric tube with distal tip in the expected location of the proximal stomach. Patient is status post intubation with distal tip of the endotracheal tube approximately 1.6 cm above the karine. There are stable bilateral basilar predominant (right greater than left) pleural and parenchymal opacities that obscure the contours of the hemidiaphragms and blunt the costophrenic sulci. The volume loss in the right hemithorax is also stable in appearance. There is re- demonstration of surgical clips that project over the right suprahilar region and right infrahilar region and postoperative changes consistent with prior TAVR. IMPRESSION: Status post placement of endotracheal tube and enteric tube as detailed above with otherwise stable appearance of the bilateral lungs.
[2019-12-16] MEDS ORDERED: ETOMIDATE INJ/PF 20 MG/10 ML SDV IV ONE (01:30)
[2019-12-16] MEDS ORDERED: PROPOFOL INJ 200 MG/20 ML VIAL IV ONE ×2 (01:30)
[2019-12-16] MEDS ORDERED: RINGERS SOLUTION,LACTATED 1,000 ML IV ONE ×3 (02:00→05:48)
--- NOTE | 2019-12-16 02:10 | Operative Report ---
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 My hands were washed immediately prior to the procedure. I were surgical cap, mask with protective eyewear, gown and gloves throughout the procedure. The patient was placed on a cardiac exercise specialist including continuous pulse oximetry. Rapid sequence intubation was conducted. The patient received 50 mg x 2 of propofol for induction and 10 mg of etomidate. Cricoid pressure was maintained from time induction agent was given the time of cuff balloon inflation. Using a size 4 Olive laryngoscope and a size 7.5 endotracheal tube with stylette, the patient was intubated on the second attempt. The stylette was removed and the cuff balloon was inflated. Appropriate endotracheal tube position was confirmed by direct visualization of vocal cord passage, CO2 colorimetric indicator and symmetric breath sounds. The tube was secured at 26 centimeters at the lip. Post intubation chest x-ray confirms ET tube at 3 centimeters above the karine. Indication for Procedure: Respiratory failure Provider: DEEPAK COLUNGA
[2019-12-16] MEDS ORDERED: GLUCAGON,HUMAN RECOMB 1 MG INJ SUBCUT PRN (03:45)
[2019-12-16] MEDS ORDERED: DEXTROSE 40% GEL 15 GM TUBE PO PRN ×2 (03:45)
[2019-12-16] MEDS ORDERED: DEXTROSE 50%-WATER 25 GM/50 ML DISP.SYRIN IV PRN ×2 (03:45)
[2019-12-16 04:48] LABS: ARTERIAL BLOOD BASE EXCESS -1.4 mmol/L; ARTERIAL BLOOD H2CO3 1.45 mmol/L (1.05-1.35); ARTERIAL BLOOD HCO3 24.8 mmol/L (20-24); ARTERIAL BLOOD O2 SATURATION 99.4 % (94-98); ARTERIAL BLOOD PCO2 48.1 mmHg (35-45); ARTERIAL BLOOD PH 7.33 (7.35-7.45); ARTERIAL BLOOD PO2 223.6 mmHg (80-100); ARTERIAL BLOOD TOTAL CO2 26.3 mmol/L (23-27)
[2019-12-16 04:50] LABS: ARTERIAL BLOOD FIO2 75
[2019-12-16 04:55] LABS: ABSOLUTE LYMPHOCYTES (AUTO) 0.4 10^3/uL (0.5-4.7); ABSOLUTE MONOCYTES (AUTO) 0.5 10^3/uL (0.1-1.4); BASOPHILS % (AUTO) 0.3 % (0-2); EOSINOPHILS % (AUTO) 0.7 % (0-6); HEMATOCRIT 27.3 % (37.9-51.0); HEMOGLOBIN 9.4 g/dL (13.5-17.0); LYMPHOCYTES % (AUTO) 7.8 % (13-45); MEAN CORPUSCULAR HEMOGLOBIN 31.8 pg (27.0-33.4); MEAN CORPUSCULAR HGB CONC 34.4 g/dL (32.0-36.0); MEAN CORPUSCULAR VOLUME 92 fl (80-97); MONOCYTES % (AUTO) 10.4 % (3-13); RED BLOOD COUNT 2.96 10^6/uL (4.35-5.55); RED CELL DISTRIBUTION WIDTH 14.4 % (11.5-14.0); SEGMENTED NEUTROPHILS % (AUTO) 80.8 % (42-78); TOTAL CELLS COUNTED % (AUTO) 100 %
[2019-12-16 05:14] LABS: ALBUMIN 2.2 g/dL (3.5-5.0); ALKALINE PHOSPHATASE 60 U/L (38-126); ANION GAP 6 (5-19); ASPARTATE AMINO TRANSFERASE 23 U/L (17-59); BILIRUBIN,TOTAL 0.3 mg/dL (0.2-1.3); BLOOD UREA NITROGEN 22 mg/dL (7-20); CALCIUM 7.4 mg/dL (8.4-10.2); CARBON DIOXIDE 23 mmol/L (22-30); CHLORIDE 106 mmol/L (98-107); GLUCOSE 73 mg/dL (75-110); POTASSIUM 4.3 mmol/L (3.6-5.0); TOTAL PROTEIN 4.2 g/dL (6.3-8.2)
[2019-12-16 05:19] LABS: PLATELET COUNT 92 10^3/uL (150-450)
[2019-12-16] MEDS: HEPARIN SOD (PORCINE) 5,000 UNIT/ML 1 ML VIAL SUBCUT SCH ×3 (05:34→21:36)
[2019-12-16] MEDS ORDERED: DOPAMINE HCL/DEXTROSE 5%-WATER 800 MG/250 ML RTUINJ IV ONE (07:03)
--- NOTE | 2019-12-16 08:39 | RADIOLOGY REPORT (SQ) ---
EXAM DESCRIPTION: CHEST SINGLE VIEW COMPLETED DATE/TIME: 12/16/2019 8:19 am REASON FOR STUDY: central line placement COMPARISON: Earlier the same day. NUMBER OF VIEWS: One view. TECHNIQUE: Single frontal radiographic image of the chest acquired. LIMITATIONS: None. FINDINGS: LUNGS AND PLEURA: Stable appearance. MEDIASTINUM AND HILAR STRUCTURES: Stable heart size and mediastinal structures. HEART AND VASCULAR STRUCTURES: Stable appearance. SUPPORT DEVICES: Right-sided central line has been placed. No pneumothorax. Tip overlies the SVC. Endotracheal tube and NG tube remain in place. BONES: No acute findings. OTHER: No other significant finding. IMPRESSION: Interval placement a right-sided central line. No other changes. TECHNICAL DOCUMENTATION: JOB ID: [id number] 2010 [employer]- All Rights Reserved Reading location - IP/workstation name: [email or web address]
[2019-12-16] MEDS: PROPOFOL 1,000 MG/100 ML INFUS..BTL IV PRN ×3 (10:45→17:18)
[2019-12-16] MEDS: DOCUSATE SODIUM 100 MG CAPSULE PO SCH (13:23)
[2019-12-16] MEDS: HALOPERIDOL LACTATE INJ 5 MG/1 ML VIAL IV PRN (13:24)
[2019-12-16] MEDS: PANTOPRAZOLE SODIUM 40 MG VIAL IV SCH (13:24)
--- NOTE | 2019-12-16 14:07 | PDOC CONSULTATION ---
Consultation Consult Date: 12/16/19 Attending physician:: DEMETRI NUÑEZ Provider Consulted: MELISSA RAMIREZ Consult reason:: CHF History of Present Illness Admission Date/PCP: 12/13/19 20:15 AYAN YA MD Patient complains of: The patient is intubated and sedated. There are no family members present. History of Present Illness: CORBY GROVES is a 79 year old male with an extensive history of lung cancer status post chemotherapy and radiation therapy, with history of type II ND in May 2017 when he had pneumonia, severe aortic stenosis status post TAVR with a 29 mm Mccormick Joanne 3 at [facility] on 07/06/2017, symptomatic third-degree AV block status post [employer] Micra leadless pacemaker implantation on 07/10/2017 who is consulted for further evaluation of possible heart failure and complete heart block. The patient presented initially to the emergency room on 12/13/2019 with complaints of fevers and dysuria. He progressively deteriorated and developed respiratory distress requiring admission to the intensive care unit and intubation. Unfortunately there are no family members present to get a better cardiac history in this patient. Cardiac procedures: LHC on 06/04/2017: -Left main: No disease. -LAD: No disease. -Left circumflex: No disease. -OM1: No disease. -Left PLB: No disease. -RCA: No disease. -PDA: No disease. Echocardiogram on 07/11/2017: -EF 50 to 55%. -Paradoxical motion of the interventricular septum secondary to left bundle branch block. -Moderate RVE. His physical exam is as follows: GENERAL: Intubated and sedated. HEENT: Normocephalic, atraumatic. Pupils equal. Sclerae anicteric. Oropharynx moist. NECK: No JVD. No carotid bruits. LUNGS: Bilateral inspiratory and expiratory wheezing and rhonchi. CARDIOVASCULAR: Regular rate and rhythm, normal S1 and S2 without murmurs, rubs, or gallops. PMI not displaced. ABDOMEN: Mildly distended and hard to palpation. EXTREMITIES: No edema, no cyanosis, no clubbing. +2 pulses femoral and pedal pulses bilaterally. SKIN: No lesions or rashes. NEUROLOGIC: Unable to assess as the patient is intubated and sedated. Past Medical History Pulmonary Medical History: Reports: Chronic Obstructive Pulmonary Disease (COPD) Malignancy Medical History: Reports: Lung Cancer Past Surgical History Past Surgical History: Reports: Other - Lobectomy Social History Lives with: Spouse/Significant other Smoking Status: Former Smoker Frequency of Alcohol Use: None Hx Recreational Drug Use: No Drugs: None Hx Prescription Drug Abuse: No - Advance Directive Resuscitation Status: Full Code Family History Family History: Other Parental Family History Reviewed: Yes Children Family History Reviewed: Yes Sibling(s) Family History Reviewed.: Yes Medication/Allergy Home Medications: Aspirin [Adult Low Dose Aspirin EC] 81 mg PO DAILY 12/14/19 Atorvastatin Calcium [Lipitor 80 mg Tablet] 80 mg PO DAILY 12/14/19 Clopidogrel Bisulfate [Plavix 75 mg Tablet] 75 mg PO DAILY 12/14/19 Ferrous Sulfate [Ferosul] 325 mg PO DAILY 12/14/19 Ipratropium/Albuterol Sulfate [Duoneb 3 ml Ampul] 3 ml NEB RTQ6HP PRN 12/14/19 Multivitamin [Multiple Vitamins] 1 tab PO DAILY 12/14/19 Omeprazole 40 mg PO QAM 12/14/19 Oxycodone HCl [Oxy-Ir 5 mg Tablet] 10 mg PO Q4HP PRN 12/14/19 Umeclidinium [place] [Incruse Ellipta] 1 puff IH DAILY 12/14/19 Allergies/Adverse Reactions: Penicillins Adverse Reaction (Intermediate, Verified 12/13/19 23:32) Physical Exam Vital Signs: Temp Pulse Resp BP Pulse Ox 98.2 F 95 15 134/48 H 95 12/16/19 10:00 12/16/19 10:00 12/16/19 10:00 12/16/19 10:00 12/16/19 10:00 Intake & Output 12/15/19 12/16/19 12/17/19 06:59 06:59 06:59 Intake Total 3445 627 3313 Output Total 550 2193 120 Balance 4145 -8765 3193 Weight 88.7 kg 86.3 kg Results Laboratory Results: 12/16/19 04:39 12/16/19 04:39 12/15/19 12/16/19 12/16/19 21:15 04:15 04:39 WBC 5.0 RBC 2.96 L Hgb 9.4 L Hct 27.3 L MCV 92 MCH 31.8 MCHC 34.4 RDW 14.4 H Plt Count 92 L Seg Neutrophils % 80.8 H Carbonic Acid 1.56 H 1.45 H HCO3/H2CO3 Ratio 15:1 17:1 ABG pH 7.28 L 7.33 L ABG pCO2 51.8 H 48.1 H ABG pO2 67.9 L 223.6 H ABG HCO3 23.5 24.8 H ABG O2 Saturation 91.0 L 99.4 H ABG Base Excess -3.9 -1.4 FiO2 2L 75 Sodium Potassium Chloride Carbon Dioxide Anion Gap BUN Creatinine Est GFR ( Amer) Glucose Calcium Total Bilirubin AST Alkaline Phosphatase Total Protein Albumin 12/16/19 04:39 WBC RBC Hgb Hct MCV MCH MCHC RDW Plt Count Seg Neutrophils % Carbonic Acid HCO3/H2CO3 Ratio ABG pH ABG pCO2 ABG pO2 ABG HCO3 ABG O2 Saturation ABG Base Excess FiO2 Sodium 134.8 L Potassium 4.3 Chloride 106 Carbon Dioxide 23 Anion Gap 6 BUN 22 H Creatinine 0.73 Est GFR ( Amer) > 60 Glucose 73 L Calcium 7.4 L Total Bilirubin 0.3 AST 23 Alkaline Phosphatase 60 Total Protein 4.2 L Albumin 2.2 L 12/13/19 17:26 Clean Catch Midstream Urine Culture - Final Klebsiella Pneumoniae Escherichia Coli 12/13/19 12/13/19 12/13/19 15:28 15:28 19:20 Troponin I 0.092 0.075 NT-Pro-B Natriuret Pep 4360 H 12/16/19 04:39 Troponin I NT-Pro-B Natriuret Pep 7380 H Impressions: Chest/Abdomen CTA 12/15/19 00:00 IMPRESSION: 1. Slight increase in size of the right pleural effusion. 2. Development of a small left effusion since prior study. 3. No significant interval change in lung findings. 4. No pulmonary emboli. Head CT 12/15/19 00:00 IMPRESSION: No acute intracranial process. Mild microvascular ischemia. Ventricular enlargement out of proportion to U gyral atrophy suggests possible normal pressure hydrocephalus. EVIDENCE OF ACUTE STROKE: NO. Chest X-Ray 12/16/19 07:48 IMPRESSION: Interval placement a right-sided central line. No other changes. 12/16/19 04:39 12/16/19 04:39 MCV 92 fl (80-97) 12/16/19 04:39 MCH 31.8 pg (27.0-33.4) 12/16/19 04:39 MCHC 34.4 g/dL (32.0-36.0) 12/16/19 04:39 RDW 14.4 % (11.5-14.0) H 12/16/19 04:39 Seg Neutrophils % 80.8 % (42-78) H 12/16/19 04:39 Carbonic Acid 1.45 mmol/L (1.05-1.35) H 12/16/19 04:15 HCO3/H2CO3 Ratio 17:1 12/16/19 04:15 ABG pH 7.33 (7.35-7.45) L 12/16/19 04:15 ABG pCO2 48.1 mmHg (35-45) H 12/16/19 04:15 ABG pO2 223.6 mmHg (80-100) H 12/16/19 04:15 ABG HCO3 24.8 mmol/L (20-24) H 12/16/19 04:15 ABG O2 Saturation 99.4 % (94-98) H 12/16/19 04:15 ABG Base Excess -1.4 mmol/L 12/16/19 04:15 VBG pH 7.33 (7.30-7.42) 12/13/19 16:38 VBG pCO2 46.4 mmHg (35-63) 12/13/19 16:38 VBG HCO3 24.0 mmol/L (20-32) 12/13/19 16:38 VBG Base Excess -2.1 mmol/L 12/13/19 16:38 FiO2 75 12/16/19 04:15 Chloride 106 mmol/L (98-107) 12/16/19 04:39 Carbon Dioxide 23 mmol/L (22-30) 12/16/19 04:39 Anion Gap 6 (5-19) 12/16/19 04:39 Est GFR ( Amer) > 60 (>60) 12/16/19 04:39 Glucose 73 mg/dL (75-110) L 12/16/19 04:39 Lactic Acid 1.3 mmol/L (0.7-2.1) 12/15/19 02:57 Calcium 7.4 mg/dL (8.4-10.2) L 12/16/19 04:39 Magnesium 2.3 mg/dL (1.6-2.3) 12/15/19 08:06 Total Bilirubin 0.3 mg/dL (0.2-1.3) 12/16/19 04:39 AST 23 U/L (17-59) 12/16/19 04:39 Alkaline Phosphatase 60 U/L (38-126) 12/16/19 04:39 Total Protein 4.2 g/dL (6.3-8.2) L 12/16/19 04:39 Albumin 2.2 g/dL (3.5-5.0) L 12/16/19 04:39 Urine Color YELLOW 12/13/19 17:26 Urine Appearance CLOUDY 12/13/19 17:26 Urine pH 5.0 (5.0-9.0) 12/13/19 17:26 Ur Specific [place]ona 1.010 12/13/19 17:26 Urine Protein 30 mg/dL (NEGATIVE) H 12/13/19 17:26 Urine Glucose (UA) NEGATIVE mg/dL (NEGATIVE) 12/13/19 17:26 Urine Ketones NEGATIVE mg/dL (NEGATIVE) 12/13/19 17:26 Urine Blood MODERATE (NEGATIVE) H 12/13/19 17:26 Urine Nitrite NEGATIVE (NEGATIVE) 12/13/19 17:26 Ur Leukocyte Esterase LARGE (NEGATIVE) H 12/13/19 17:26 Urine WBC (Auto) >182 /HPF 12/13/19 17:26 Urine RBC (Auto) 3 /HPF 12/13/19 17:26 12/13/19 17:26 Clean Catch Midstream Urine Culture - Final Klebsiella Pneumoniae Escherichia Coli 12/13/19 12/13/19 12/13/19 15:28 15:28 19:20 Troponin I 0.092 0.075 NT-Pro-B Natriuret Pep 4360 H 12/16/19 04:39 Troponin I NT-Pro-B Natriuret Pep 7380 H Current Medication List Generic Name Dose Route Start Last Admin Trade Name Freq PRN Reason Stop Dose Admin Acetaminophen 650 mg 12/15/19 08:11 Tylenol 650 Mg Supp NC 01/14/20 08:10 Q4HP PRN FOR PAIN OR TEMP Al Hydrox/Mg Hydrox/Simethicone 30 ml 12/13/19 19:56 Maalox Plus Susp 30 Udcup PO 01/12/20 19:55 Q6HP PRN HEARTBURN Albuterol/Ipratropium 3 ml 12/14/19 17:31 12/15/19 06:24 Duoneb 3 Ml Ampul NEB 01/13/20 17:30 3 ml RTQ6HP PRN Administration FOR SOB/WHEEZING Dextrose 12.5 gm 12/16/19 03:45 Dextrose Inj 50% Syringe (25 Gm/50 Ml) IV 01/15/20 03:44 PRN PRN FOR BG 50-69 IN ALERT PATIENT Protocol Dextrose 25 gm 12/16/19 03:45 Dextrose Inj 50% Syringe (25 Gm/50 Ml) IV 01/15/20 03:44 PRN PRN See Label Comments Protocol Docusate Sodium 100 mg 12/14/19 10:00 12/15/19 18:09 Colace 100 Mg Capsule PO 01/13/20 09:59 Not Given BID KAROL Glucagon 1 mg 12/16/19 03:45 Glucagen Inj 1 Mg Vial SUBCUT 01/15/20 03:44 PRN PRN Evaluate for BG < 70 Protocol Glucose 15 gm 12/16/19 03:45 Glutose 40% Gel 15 Gm Tube PO 01/15/20 03:44 PRN PRN For BG 50-69 in Alert Patient Protocol Glucose 30 gm 12/16/19 03:45 Glutose 40% Gel 15 Gm Tube PO 01/15/20 03:44 PRN PRN FOR BG < 50 IN ALERT PATIENT Protocol Haloperidol Lactate 2 mg 12/15/19 17:39 Haldol 5 Mg/Ml Inj 1 Ml Vial IV 01/14/20 17:38 Q4HP PRN RESTLESSNESS/AGITATION Heparin Sodium (Porcine) 5,000 unit 12/13/19 22:00 12/16/19 05:34 Heparin Inj 5,000 Units/Ml 1 Ml Vial SUBCUT 01/12/20 21:59 5,000 unit Q8 KAROL Administration Imipenem/Cilastatin Sodium 1, 250 mls @ 250 mls/hr 12/15/19 12:00 12/16/19 07:00 000 mg/ Sodium Chloride IV 12/22/19 11:59 Infused Q6 KAROL Infusion Propofol 1,000 mg in 100 mls @ 2.661 mls/hr 12/16/19 00:46 12/16/19 08:40 Diprivan Rtu 1000 Mg/100 Ml Inf.Bottle IV 01/15/20 00:45 60 mcg/kg/min CONTINUOUS PRN 31.93 mls/hr THIS MED IS NOT "PRN" Titration Protocol 5 MCG/KG/MIN Lactated Ringer's 1,000 mls @ 100 mls/hr 12/16/19 01:54 12/16/19 01:15 Lactated Ringers 1000 Ml Iv Soln IV 01/15/20 01:53 100 mls/hr CONTINUOUS PRN Administration THIS MED IS NOT "PRN" Pantoprazole Sodium 40 mg 12/16/19 11:00 Protonix Iv Inj 40 Mg Vial IV 12/23/19 10:59 Q6AM KAROL Discontinued Medications Generic Name Dose Route Start Last Admin Trade Name Freq PRN Reason Stop Dose Admin Acetaminophen 650 mg 12/13/19 19:56 Tylenol 325 Mg Tablet PO 01/12/20 19:55 Q4HP PRN FOR PAIN OR TEMP Acetaminophen Confirm 12/15/19 07:43 12/15/19 10:44 Tylenol 650 Mg Supp Administered 12/15/19 07:44 Not Given Dose 650 mg NC .STK-MED ONE Albuterol 2 puff 12/13/19 16:18 12/13/19 19:48 Ventolin Hfa 8 Gm Mdi (1 Mdi/Er Disp) IH 12/13/19 16:19 Not Given NOW ONE Albuterol/Ipratropium 3 ml 12/13/19 19:56 12/14/19 12:34 Duoneb 3 Ml Ampul NEB 01/12/20 19:55 3 ml [id number] PRN Administration SHORTNESS OF BREATH Diazepam 5 mg 12/14/19 23:00 12/14/19 22:50 Valium Inj 10 Mg/2 Ml Disp.Syrin IV 12/14/19 23:01 5 mg NOW ONE Administration Diazepam 5 mg 12/15/19 08:21 12/15/19 08:50 Valium Inj 10 Mg/2 Ml Disp.Syrin IV 12/15/19 08:22 5 mg NOW ONE Administration Diazepam 5 mg 12/15/19 08:21 12/15/19 15:05 Valium Inj 10 Mg/2 Ml Disp.Syrin IV 12/22/19 08:20 5 mg Q6HP PRN Administration ANXIETY/AGITATION Diazepam 5 mg 12/15/19 11:30 12/15/19 10:58 Valium Inj 10 Mg/2 Ml Disp.Syrin IV 12/15/19 11:31 5 mg NOW ONE Administration Etomidate Confirm 12/15/19 23:01 12/16/19 03:27 Amidate Inj/Pf 20 Mg/10 Ml Sdv Administered 12/15/19 23:02 Not Given Dose 20 mg IV .STK-MED ONE Etomidate 10 mg 12/16/19 01:30 12/15/19 23:30 Amidate Inj/Pf 20 Mg/10 Ml Sdv IV 12/16/19 01:31 10 mg ONCE ONE Administration Furosemide 40 mg 12/15/19 18:20 12/15/19 18:37 Lasix Inj/Pf 40 Mg/4 Ml Sdv IV 12/15/19 18:21 40 mg NOW ONE Administration Haloperidol Lactate 1 mg 12/15/19 15:52 Haldol 5 Mg/Ml Inj 1 Ml Vial IV 01/14/20 15:51 Q6HP PRN RESTLESSNESS/AGITATION Sodium Chloride 1,000 mls @ 0 mls/hr 12/13/19 16:18 12/13/19 17:20 Nacl 0.9% 1000 Ml Iv Soln IV 12/13/19 16:19 Infused BOLUS ONE Infusion Wide Open Levofloxacin/Dextrose 150 mls @ 100 mls/hr 12/13/19 18:28 Levaquin Rtu 750 Mg/D5w 150 Ml Premix IV 12/13/19 19:57 NOW ONE Ceftriaxone Sodium/Dextrose 1 gm in 50 mls @ 100 mls/hr 12/13/19 18:31 12/13/19 19:48 Rocephin Rtu 1 Gm/D5w 50 Ml Premix IV 12/13/19 19:00 Infused NOW ONE Infusion Sodium Chloride 1,000 mls @ 0 mls/hr 12/13/19 18:33 12/13/19 19:49 Nacl 0.9% 1000 Ml Iv Soln IV 12/13/19 18:34 Infused BOLUS ONE Infusion Wide Open Sodium Chloride 1,000 mls @ 500 mls/hr 12/13/19 20:00 Nacl 0.9% 1000 Ml Iv Soln IV 01/12/20 19:59 X 3 BAGS KAROL Ceftriaxone Sodium/Dextrose 1 gm in 50 mls @ 100 mls/hr 12/14/19 18:00 12/14/19 19:17 Rocephin Rtu 1 Gm/D5w 50 Ml Premix IV 12/21/19 17:59 Infused QPM KAROL Infusion Vancomycin HCl 1,000 mg/ 250 mls @ 166.667 mls/hr 12/13/19 21:00 12/14/19 00:00 Dextrose IV 12/13/19 22:29 Infused NOW ONE Infusion Vancomycin HCl 1,250 mg/ 250 mls @ 166.667 mls/hr 12/14/19 22:00 12/15/19 02:13 Dextrose IV 12/21/19 21:59 Infused QHS KAROL Infusion Sodium Chloride 1,000 mls @ 0 mls/hr 12/13/19 22:03 12/14/19 00:00 Nacl 0.9% 1000 Ml Iv Soln IV 12/13/19 22:04 Infused BOLUS ONE Infusion Wide Open Sodium Chloride 1,000 mls @ 200 mls/hr 12/14/19 00:49 12/14/19 16:05 Nacl 0.9% 1000 Ml Iv Soln IV Infused CONTINUOUS PRN Infusion THIS MED IS NOT "PRN" Sodium Chloride 500 mls @ 0 mls/hr 12/14/19 14:30 12/14/19 16:05 Nacl 0.9% 500 Ml Iv Soln IV 12/14/19 14:31 Infused BOLUS ONE Infusion Wide Open Sodium Chloride 1,000 mls @ 100 mls/hr 12/14/19 13:49 12/15/19 02:13 Nacl 0.9% 1000 Ml Iv Soln IV 01/13/20 13:48 0 mls/hr CONTINUOUS PRN Infusion THIS MED IS NOT "PRN" Sodium Chloride 1,000 mls @ 150 mls/hr 12/15/19 08:30 Nacl 0.9% 1000 Ml Iv Soln IV 01/13/20 13:48 CONTINUOUS PRN THIS MED IS NOT "PRN" Dextrose/Lactated Ringer's 1,000 mls @ 75 mls/hr 12/15/19 15:38 12/16/19 09:29 D5lr 1000 Ml Iv Soln IV 01/14/20 15:37 Infused CONTINUOUS PRN Infusion THIS MED IS NOT "PRN" Propofol Confirm 12/15/19 23:01 12/16/19 03:34 Diprivan Rtu 1000 Mg/100 Ml Inf.Bottle Administered 12/15/19 23:02 Not Given Dose 1,000 mg in 100 mls @ ud IV .STK-MED ONE Lactated Ringer's 1,000 mls @ 0 mls/hr 12/16/19 02:00 12/16/19 07:00 Lactated Ringers 1000 Ml Iv Soln IV 12/16/19 02:01 Infused BOLUS ONE Infusion Wide Open Lactated Ringer's 1,000 mls @ 0 mls/hr 12/16/19 04:07 12/16/19 07:00 Lactated Ringers 1000 Ml Iv Soln IV 12/16/19 04:08 Infused BOLUS ONE Infusion Wide Open Lactated Ringer's 1,000 mls @ 0 mls/hr 12/16/19 05:48 12/16/19 07:15 Lactated Ringers 1000 Ml Iv Soln IV 12/16/19 05:49 Infused BOLUS ONE Infusion Wide Open Dopamine HCl/Dextrose Confirm 12/16/19 07:03 Dopamine Rtu 800 Mg-D5w 250 Ml (Adult) Premix Administered 12/16/19 07:04 Dose 800 mg in 250 mls @ ud IV .STK-MED ONE Lidocaine HCl Confirm 12/14/19 00:40 12/14/19 02:43 Xylocaine 2% Uro-Jet 5 Ml Kit Administered 12/14/19 00:41 Not Given Dose 5 ml .ROUTE .STK-MED ONE Lidocaine HCl 5 ml 12/14/19 01:00 12/14/19 01:15 Xylocaine 2% Uro-Jet 5 Ml Kit MM 12/14/19 01:01 5 ml ONCE ONE Administration Morphine Sulfate Confirm 12/15/19 00:44 12/15/19 02:12 Morphine 10 Mg/Ml Inj Administered 12/15/19 00:45 Not Given Dose 10 mg .ROUTE .STK-MED ONE Morphine Sulfate 5 mg 12/15/19 02:00 12/15/19 02:00 Morphine 10 Mg/Ml Inj IV 12/15/19 02:01 5 mg ONCE ONE Administration Morphine Sulfate Confirm 12/15/19 20:45 12/16/19 00:15 Morphine 10 Mg/Ml Inj Administered 12/15/19 20:46 Not Given Dose 10 mg .ROUTE .STK-MED ONE Morphine Sulfate 5 mg 12/15/19 20:56 12/15/19 20:45 Morphine 10 Mg/Ml Inj IV 12/15/19 20:57 5 mg NOW ONE Administration Pantoprazole Sodium 40 mg 12/15/19 10:00 12/15/19 11:25 Protonix Iv Inj 40 Mg Vial IV 12/18/19 09:59 40 mg Q12 KAROL Administration Propofol Confirm 12/15/19 23:01 12/16/19 03:29 Diprivan Inj 200 Mg/20 Ml Vial Administered 12/15/19 23:02 Not Given Dose 200 mg IV .STK-MED ONE Propofol 50 mg 12/16/19 01:30 12/15/19 23:30 Diprivan Inj 200 Mg/20 Ml Vial IV 12/16/19 01:31 50 mg ONCE ONE Administration Propofol 50 mg 12/16/19 01:30 12/15/19 23:45 Diprivan Inj 200 Mg/20 Ml Vial IV 12/16/19 01:31 50 mg ONCE ONE Administration Vancomycin HCl Confirm 12/14/19 23:39 12/14/19 23:55 Vancocin Inj 1000 Mg Vial Administered 12/14/19 23:40 Not Given Dose 1,000 mg .ROUTE .STK-MED ONE Assessment & Plan - Diagnosis (1) Elevated brain natriuretic peptide (BNP) level Is this a current diagnosis for this admission?: Yes Plan: Very unfortunate 79-year-old male with an extensive history of pulmonary problems such as COPD and lung cancer who was admitted on 12/13/2019 with fevers and UTI with subsequent respiratory distress requiring intubation and mechanical ventilation. It is unclear whether his elevated BNP is secondary to underlying sepsis/pulmonary/critical illness process versus true heart failure. His cardiac enzymes remain under the threshold for cardiac injury. Dr. Nuñez has requested that the pacemaker be adjusted to a heart rate of at least 70 bpm therefore the device rep has been contacted and will be making the requested changes as soon as possible. He is currently in [place] and the company only has a skeleton crew given the coronavirus pandemia therefore we expect a delay in adjusting the device. Recommendations: -Echocardiogram today to assess LV systolic function and other structural heart disease particularly valvular heart disease with special attention to the aortic valve. -Conservative management for now as dictated by his sepsis. -IV furosemide only if absolutely needed to control fluid overload from fluid resuscitation due to his sepsis. -Device changes as requested by craps manager. (2) Complete heart block Is this a current diagnosis for this admission?: Yes Plan: The patient is currently in complete heart block with a wide complex escape rhythm and intermittent capture. The intrinsic rate sometimes overrides the pacemaker backup rate which appears to be 60 bpm. The device will be adjusted as requested by the craps manager. Recommendations: -Continue with clinical follow-up for now. -Device adjustment as requested by craps manager. (3) Aortic stenosis Qualifiers: Cardiac valve disease etiology: etiology unspecified Qualified Code(s): I35.0 - Nonrheumatic aortic (valve) stenosis Is this a current diagnosis for this admission?: Yes Plan: The patient underwent TAVR for severe aortic stenosis with a 29 mm Mccormick Joanne 3 valve on 07/06/2017. Recommendations: -Echocardiogram today. -Continue with clinical follow-up.
[2019-12-16] MEDS: FENTANYL CITRATE/PF 600 MCG/60 ML BAG IV PRN (15:00)
--- NOTE | 2019-12-16 15:08 | XCELERA REPORT ---
[address] [address] Transthoracic Echocardiogram Report Name: CORBY GROVES Age: 79 yrs Gender: Male : 1940 Patient Status: Inpatient Patient Location: ICU^606^A Study Date: 12/16/2019 01:54 PM Height: 69 in Weight: 190 lb BSA: 2.0 m2 Reason For Study: chf Ordering Physician: DEMETRI NUÑEZ Performed By: KELLY Interpretation Summary Very poor quality study and uninterpretable for the most part. The patient is in the ICU, intubated and sedated therefore no repositioning was possible. The LV systolic function appears to be preserved with a hyperdynamic left ventricle. Valvular structures are not well visualized. Cannot comment on regional wall motion abnormalities. MMode/2D Measurements & Calculations RVDd: 1.9 cm LVIDd: 4.5 cm EDV(Teich): 93.1 ml IVSd: 1.0 cm LVPWd: 0.88 cm Doppler Measurements & Calculations MV E max ciara: MV P1/2t max ciara: Ao V2 max: LV V1 max P.0 cm/sec 90.9 cm/sec 165.8 cm/sec 6.5 mmHg MV A max ciara: MV P1/2t: 65.9 msec Ao max PG: LV V1 max: 60.5 cm/sec MVA(P1/2t): 3.3 cm2 11.0 mmHg 127.8 cm/sec MV E/A: 1.1 MV dec slope: 404.2 cm/sec2 MV dec time: 0.16 sec PA V2 max: TR max ciara: MV P1/2t-pr_phl: 161.9 cm/sec 291.8 cm/sec 65.9 msec PA max PG: TR max P.1 mmHg 10.5 mmHg : DEMETRI NUÑEZ Antonio
[2019-12-16] MEDS ORDERED: FUROSEMIDE INJ/PF 40 MG/4 ML SDV IV ONE (15:19)
--- NOTE | 2019-12-16 15:28 | PDOC CRITICAL CARE PROG REPORT ---
General Date:: 12/16/19 ICU Day:: 2 Hospital Day:: 3 Resuscitation Status: Full Code Events in the past 12 to 24 Hours:: 79-year-old white male with a history of bronchogenic carcinoma and COPD. He also has a pacemaker in place but no known history of congestive heart failure. He came to the hospital 2 days ago after developing several days of GI symptoms followed by fever at home. History was provided by his but she also is not a very good historian and he is disoriented. He continues to have fever here and has become somewhat agitated and difficult care for so he has been transferred to the ICU then required intubation last night. PMH: Cardiac history clarified with review of current radiographs and records from [facility]. He has had a TVAR and a newer but smaller pacemaker just over the apex of his heart with dating back to 2017. Physical Exam Vital Signs: Temp Pulse Resp BP Pulse Ox 99.1 F 79 15 126/99 H 97 12/16/19 12:00 12/16/19 12:00 12/16/19 13:45 12/16/19 13:37 12/16/19 13:45 Intake & Output 12/15/19 12/16/19 12/17/19 06:59 06:59 06:59 Intake Total 3445 627 3438 Output Total 550 2193 600 Balance 2895 -1566 2838 Weight 88.7 kg 86.3 kg Weight/Height Weight 86.3 kg Height 5 ft 9 in General appearance: PRESENT: no acute distress - Orally intubated and sedated Eye exam: PRESENT: EOMI, PERRLA. ABSENT: conjunctival injection Neck exam: PRESENT: tracheal deviation. ABSENT: lymphadenopathy Respiratory exam: PRESENT: decreased breath sounds, rales Cardiovascular exam: PRESENT: RRR GI/Abdominal exam: PRESENT: soft. ABSENT: tenderness Extremities exam: PRESENT: +1 edema Neurological exam: PRESENT: altered Skin exam: PRESENT: dry, warm Laboratory/Radiographs Laboratory Results: 12/16/19 04:39 12/16/19 04:39 12/15/19 12/16/19 12/16/19 21:15 04:15 04:39 WBC 5.0 RBC 2.96 L Hgb 9.4 L Hct 27.3 L MCV 92 MCH 31.8 MCHC 34.4 RDW 14.4 H Plt Count 92 L Seg Neutrophils % 80.8 H Carbonic Acid 1.56 H 1.45 H HCO3/H2CO3 Ratio 15:1 17:1 ABG pH 7.28 L 7.33 L ABG pCO2 51.8 H 48.1 H ABG pO2 67.9 L 223.6 H ABG HCO3 23.5 24.8 H ABG O2 Saturation 91.0 L 99.4 H ABG Base Excess -3.9 -1.4 FiO2 2L 75 Sodium Potassium Chloride Carbon Dioxide Anion Gap BUN Creatinine Est GFR ( Amer) Glucose Calcium Total Bilirubin AST Alkaline Phosphatase Total Protein Albumin 12/16/19 04:39 WBC RBC Hgb Hct MCV MCH MCHC RDW Plt Count Seg Neutrophils % Carbonic Acid HCO3/H2CO3 Ratio ABG pH ABG pCO2 ABG pO2 ABG HCO3 ABG O2 Saturation ABG Base Excess FiO2 Sodium 134.8 L Potassium 4.3 Chloride 106 Carbon Dioxide 23 Anion Gap 6 BUN 22 H Creatinine 0.73 Est GFR ( Amer) > 60 Glucose 73 L Calcium 7.4 L Total Bilirubin 0.3 AST 23 Alkaline Phosphatase 60 Total Protein 4.2 L Albumin 2.2 L 12/13/19 12/13/19 12/13/19 15:28 15:28 19:20 Troponin I 0.092 0.075 NT-Pro-B Natriuret Pep 4360 H 12/16/19 04:39 Troponin I NT-Pro-B Natriuret Pep 7380 H Impressions: Chest/Abdomen CTA 12/15/19 00:00 IMPRESSION: 1. Slight increase in size of the right pleural effusion. 2. Development of a small left effusion since prior study. 3. No significant interval change in lung findings. 4. No pulmonary emboli. Head CT 12/15/19 00:00 IMPRESSION: No acute intracranial process. Mild microvascular ischemia. Ventricular enlargement out of proportion to U gyral atrophy suggests possible normal pressure hydrocephalus. EVIDENCE OF ACUTE STROKE: NO. Chest X-Ray 12/16/19 07:48 IMPRESSION: Interval placement a right-sided central line. No other changes. 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 The care of a critical patient is a dynamic process. This note is a veterans contact representative synopsis but static in nature. The timeframe for treatments given in order is not necessarily the actual time these treatments may have been done. 2. This patient requires critical care secondary to ongoing requirements for therapy not offered or safe outside the critical care environment. Transfer to a lower level of care will result in altered life or limb morbidity and mortality. 3. Multidisciplinary rounds completed. 4. ABCDE bundle addressed.
--- NOTE | 2019-12-16 15:32 | Operative Report ---
Bedside Procedure - History of Present Illness Indication for Procedure: Poor IV access Date: 12/16/19 Provider: DEMETRI NUÑEZ - Central Line Right Internal jugular Time completed: 08:00 Consent obtained: Yes Central line pre-insertion: Chloraprep applied Central line lumen type: Triple Anesthetic type: 1% Lidocaine mL's of anesthesia: 5 Ultrasound guided: Yes Line secured with sutures: Yes Central line post-insertion: Blood return from lumens, Sutured, Position confirmed w/ CXR Number of attempts: 1 Complications: No
[2019-12-16] MEDS: DOCUSATE SODIUM 100 MG/10 ML UDC PO SCH (17:17)
[2019-12-16 18:10] LABS: ABSOLUTE EOSINOPHILS # (AUTO) 0.2 10^3/uL (0.0-0.6); ABSOLUTE LYMPHOCYTES (AUTO) 0.5 10^3/uL (0.5-4.7); ABSOLUTE MONOCYTES (AUTO) 0.8 10^3/uL (0.1-1.4); ABSOLUTE NEUT (AUTO) 5.5 10^3/uL (1.7-8.2); BASOPHILS % (AUTO) 0.6 % (0-2); EOSINOPHILS % (AUTO) 2.5 % (0-6); HEMATOCRIT 32.6 % (37.9-51.0); HEMOGLOBIN 11.2 g/dL (13.5-17.0); LYMPHOCYTES % (AUTO) 6.8 % (13-45); MEAN CORPUSCULAR HEMOGLOBIN 31.7 pg (27.0-33.4); MEAN CORPUSCULAR HGB CONC 34.4 g/dL (32.0-36.0); MEAN CORPUSCULAR VOLUME 92 fl (80-97); MONOCYTES % (AUTO) 12.1 % (3-13); PLATELET COUNT 128 10^3/uL (150-450); RED BLOOD COUNT 3.54 10^6/uL (4.35-5.55); RED CELL DISTRIBUTION WIDTH 14.4 % (11.5-14.0); TOTAL CELLS COUNTED % (AUTO) 100 %
[2019-12-16 18:32] LABS: ANION GAP 6 (5-19); BLOOD UREA NITROGEN 20 mg/dL (7-20); CARBON DIOXIDE 26 mmol/L (22-30); CHLORIDE 104 mmol/L (98-107); GLUCOSE 98 mg/dL (75-110); POTASSIUM 3.9 mmol/L (3.6-5.0)
[2019-12-16 22:25] LABS: VANCOMYCIN,TROUGH < 5.0 ug/mL (5.0-20.0)
[2019-12-17] MEDS: PROPOFOL 1,000 MG/100 ML INFUS..BTL IV PRN ×5 (00:36→23:36)
[2019-12-17] MEDS: IMIPENEM/CILASTATIN SODIUM 1,000 MG in NORMAL SALINE 250 ML IV SCH ×5 (00:37→23:36)
[2019-12-17] MEDS: DOPAMINE HCL 800 MG/D5W 250 ML IV PRN ×3 (00:49→12:56)
[2019-12-17] MEDS: FENTANYL CITRATE/PF 600 MCG/60 ML BAG IV PRN ×2 (02:54→15:00)
[2019-12-17] MEDS: RINGERS SOLUTION,LACTATED 1,000 ML IV PRN ×2 (04:00→15:00)
[2019-12-17] MEDS: PANTOPRAZOLE SODIUM 40 MG VIAL IV SCH (05:15)
[2019-12-17] MEDS: HEPARIN SOD (PORCINE) 5,000 UNIT/ML 1 ML VIAL SUBCUT SCH ×3 (05:15→22:40)
--- NOTE | 2019-12-17 06:59 | RADIOLOGY REPORT (SQ) ---
EXAM: XR Chest, 1 View EXAM DATE/TIME: 12/17/2019 6:16 AM CLINICAL HISTORY: The patient is 79 years old and is Male; chf TECHNIQUE: Frontal view of the chest. COMPARISON: Chest radiograph from 12/16/2019 FINDINGS: LUNGS: There is minimal left basilar atelectasis. The left lung is otherwise clear. Radiotherapy treatment markers and/or surgical clips again visualized projecting over the right perihilar region and right upper lung. Similar clips in the left lower lung. There is a persistent irregular opacity in the right perihilar region and extending into the right upper lung, which may represent posttreatment scarring. There has been interval increase in density in the right mid to lower lung, suggesting increased atelectasis. Pneumonia not excluded. PLEURAL SPACE: Small to moderate right pleural effusion. This appears slightly increased in size compared to the prior exam. No obvious pneumothorax. HEART: Stable mild enlargement of the cardiac silhouette. The patient is status post TAVR. MEDIASTINUM: Unremarkable. BONES/JOINTS: No acute osseous findings. TUBES, LINES AND DEVICES: Right internal jugular central venous catheter terminates in the SVC. Endotracheal tube terminates in the right mainstem bronchus. Enteric tube terminates in the proximal stomach. Leadless pacemaker in place. IMPRESSION: 1. Endotracheal tube terminates in the right mainstem bronchus. Recommend 3 to 4 cm retraction. 2. Small to moderate right pleural effusion. This appears slightly increased in size compared to the prior exam. There is also increased atelectasis or pneumonia in the right mid to lower lung. 3. Unchanged irregular opacity in the right perihilar region which may represent posttreatment changes.
--- NOTE | 2019-12-17 09:05 | RADIOLOGY REPORT (SQ) ---
EXAM DESCRIPTION: CHEST SINGLE VIEW IMAGES COMPLETED DATE/TIME: 12/17/2019 8:27 am REASON FOR STUDY: ET Tube Placement / Readujusted COMPARISON: CT chest 12/15/2019 Chest films 12/15/2019, 12/16/2019, 11/18/2019 EXAM PARAMETERS: NUMBER OF VIEWS: One view. TECHNIQUE: Single frontal radiographic view of the chest acquired. RADIATION DOSE: NA LIMITATIONS: None. FINDINGS: LUNGS AND PLEURA: Persistent unchanged right pleural fluid/ pleural thickening over the ri ght lower chest. There is left lower lobe and right perihilar/lower lobe airspace unchanged. No pneumothorax MEDIASTINUM AND HILAR STRUCTURES: Old post therapeutic changes right hilum HEART AND VASCULAR STRUCTURES: No cardiomegaly. Aortic valve replacement BONES: No acute findings. HARDWARE: Endotracheal tube tip 3 cm above the karine. Right jugular central line tip superior cava. Nasogastric tube tip and side port in the stomach. OTHER: No other significant finding. IMPRESSION: Tubes and lines good positioning. No change from yesterday TECHNICAL DOCUMENTATION: JOB ID: [id number] 2010 [employer]- All Rights Reserved Reading location - IP/workstation name: [email or web address]
--- NOTE | 2019-12-17 09:06 | RADIOLOGY REPORT (SQ) ---
EXAM DESCRIPTION: KUB/ABDOMEN (SINGLE VIEW) IMAGES COMPLETED DATE/TIME: 12/17/2019 8:27 am REASON FOR STUDY: NG Tube Placement COMPARISON: AP chest 12/17/2019, 1600 hours NUMBER OF VIEWS: One view. TECHNIQUE: Supine radiographic image of the abdomen acquired. LIMITATIONS: Lower chest/ upper abdominal film for nasogastric tube placement FINDINGS: Nasogastric tube tip in the stomach, side port at the GE junction. Stomach decompressed. Upper abdominal bowel gas pattern nonobstructive. IMPRESSION: Nasogastric tube tip in the stomach, side port at the GE junction TECHNICAL DOCUMENTATION: JOB ID: [id number] 2010 [employer]- All Rights Reserved Reading location - IP/workstation name: [id number]
--- NOTE | 2019-12-17 09:17 | PDOC PROGRESS REPORT ---
Subjective Progress Note for:: 12/17/19 Subjective:: CORBY GROVES is a 79 year old male with an extensive history of lung cancer status post chemotherapy and radiation therapy, with history of type II WA in May 2017 when he had pneumonia, severe aortic stenosis status post TAVR with a 29 mm Mccormick Joanne 3 at [facility] on 07/06/2017, symptomatic third-degree AV block status post [employer] Micra leadless pacemaker implantation on 07/10/2017 who is consulted for further evaluation of possible heart failure and complete heart block. The patient presented initially to the emergency room on 12/13/2019 with complaints of fevers and dysuria. He progressively deteriorated and developed respiratory distress requiring admission to the intensive care unit and intubation. Unfortunately there are no family members present to get a better cardiac history in this patient. 12/17/2019: The patient continues to be intubated and sedated and with a slight increase in the right pleural effusion. Last night he experienced an episode of hypotension that was treated with an increase in his dopamine dose and decrease in propofol. He continues to be in isolation as he is awaiting results of COVID 19 tests. Given that PPE is scarce and to save these resources as much as possible in the setting of coronavirus pandemia, the patient is not examined however all of his v/s, lab and radiographic results were reviewed. The case was also discussed with Dr. Cassidy. Cardiac procedures: [facility] on 06/04/2017: -Left main: No disease. -LAD: No disease. -Left circumflex: No disease. -OM1: No disease. -Left PLB: No disease. -RCA: No disease. -PDA: No disease. Echocardiogram on 07/11/2017: -EF 50 to 55%. -Paradoxical motion of the interventricular septum secondary to left bundle branch block. -Moderate RVE. Reason For Visit: ARF SEPSIS UTI Physical Exam Vital Signs: Temp Pulse Resp BP Pulse Ox 98.6 F 79 15 141/72 H 95 12/17/19 05:51 12/17/19 05:51 12/17/19 05:51 12/17/19 05:51 12/17/19 05:51 Intake & Output 12/16/19 12/17/19 12/18/19 06:59 06:59 06:59 Intake Total 627 5860 Output Total 2193 3650 Balance -1566 2210 Weight 86.3 kg 88.3 kg Results Laboratory Results: 12/16/19 17:40 12/16/19 17:40 12/16/19 12/16/19 17:40 17:40 WBC 7.0 RBC 3.54 L Hgb 11.2 L Hct 32.6 L MCV 92 MCH 31.7 MCHC 34.4 RDW 14.4 H Plt Count 128 L Seg Neutrophils % 78.0 Sodium 135.6 L Potassium 3.9 Chloride 104 Carbon Dioxide 26 Anion Gap 6 BUN 20 Creatinine 0.78 Est GFR ( Amer) > 60 Glucose 98 Calcium 8.0 L 12/13/19 12/13/19 12/13/19 15:28 15:28 19:20 Troponin I 0.092 0.075 NT-Pro-B Natriuret Pep 4360 H 12/16/19 04:39 Troponin I NT-Pro-B Natriuret Pep 7380 H Impressions: Chest/Abdomen CTA 12/15/19 00:00 IMPRESSION: 1. Slight increase in size of the right pleural effusion. 2. Development of a small left effusion since prior study. 3. No significant interval change in lung findings. 4. No pulmonary emboli. Head CT 12/15/19 00:00 IMPRESSION: No acute intracranial process. Mild microvascular ischemia. Ventricular enlargement out of proportion to U gyral atrophy suggests possible normal pressure hydrocephalus. EVIDENCE OF ACUTE STROKE: NO. Chest X-Ray 12/17/19 00:00 IMPRESSION: 1. Endotracheal tube terminates in the right mainstem bronchus. Recommend 3 to 4 cm retraction. 2. Small to moderate right pleural effusion. This appears slightly increased in size compared to the prior exam. There is also increased atelectasis or pneumonia in the right mid to lower lung. 3. Unchanged irregular opacity in the right perihilar region which may represent posttreatment changes. 12/16/19 17:40 12/16/19 17:40 MCV 92 fl (80-97) 12/16/19 17:40 MCH 31.7 pg (27.0-33.4) 12/16/19 17:40 MCHC 34.4 g/dL (32.0-36.0) 12/16/19 17:40 RDW 14.4 % (11.5-14.0) H 12/16/19 17:40 Seg Neutrophils % 78.0 % (42-78) 12/16/19 17:40 Carbonic Acid 1.45 mmol/L (1.05-1.35) H 12/16/19 04:15 HCO3/H2CO3 Ratio 17:1 12/16/19 04:15 ABG pH 7.33 (7.35-7.45) L 12/16/19 04:15 ABG pCO2 48.1 mmHg (35-45) H 12/16/19 04:15 ABG pO2 223.6 mmHg (80-100) H 12/16/19 04:15 ABG HCO3 24.8 mmol/L (20-24) H 12/16/19 04:15 ABG O2 Saturation 99.4 % (94-98) H 12/16/19 04:15 ABG Base Excess -1.4 mmol/L 12/16/19 04:15 VBG pH 7.33 (7.30-7.42) 12/13/19 16:38 VBG pCO2 46.4 mmHg (35-63) 12/13/19 16:38 VBG HCO3 24.0 mmol/L (20-32) 12/13/19 16:38 VBG Base Excess -2.1 mmol/L 12/13/19 16:38 FiO2 75 12/16/19 04:15 Chloride 104 mmol/L (98-107) 12/16/19 17:40 Carbon Dioxide 26 mmol/L (22-30) 12/16/19 17:40 Anion Gap 6 (5-19) 12/16/19 17:40 Est GFR ( Amer) > 60 (>60) 12/16/19 17:40 Glucose 98 mg/dL (75-110) 12/16/19 17:40 Lactic Acid 1.3 mmol/L (0.7-2.1) 12/15/19 02:57 Calcium 8.0 mg/dL (8.4-10.2) L 12/16/19 17:40 Magnesium 2.3 mg/dL (1.6-2.3) 12/15/19 08:06 Total Bilirubin 0.3 mg/dL (0.2-1.3) 12/16/19 04:39 AST 23 U/L (17-59) 12/16/19 04:39 Alkaline Phosphatase 60 U/L (38-126) 12/16/19 04:39 Total Protein 4.2 g/dL (6.3-8.2) L 12/16/19 04:39 Albumin 2.2 g/dL (3.5-5.0) L 12/16/19 04:39 Urine Color YELLOW 12/13/19 17:26 Urine Appearance CLOUDY 12/13/19 17:26 Urine pH 5.0 (5.0-9.0) 12/13/19 17:26 Ur Specific Mcroberts 1.010 12/13/19 17:26 Urine Protein 30 mg/dL (NEGATIVE) H 12/13/19 17:26 Urine Glucose (UA) NEGATIVE mg/dL (NEGATIVE) 12/13/19 17:26 Urine Ketones NEGATIVE mg/dL (NEGATIVE) 12/13/19 17:26 Urine Blood MODERATE (NEGATIVE) H 12/13/19 17:26 Urine Nitrite NEGATIVE (NEGATIVE) 12/13/19 17:26 Ur Leukocyte Esterase LARGE (NEGATIVE) H 12/13/19 17:26 Urine WBC (Auto) >182 /HPF 12/13/19 17:26 Urine RBC (Auto) 3 /HPF 12/13/19 17:26 12/13/19 12/13/19 12/13/19 15:28 15:28 19:20 Troponin I 0.092 0.075 NT-Pro-B Natriuret Pep 4360 H 12/16/19 04:39 Troponin I NT-Pro-B Natriuret Pep 7380 H Current Medication List Generic Name Dose Route Start Last Admin Trade Name Freq PRN Reason Stop Dose Admin Acetaminophen 650 mg 12/15/19 08:11 Tylenol 650 Mg Supp RI 01/14/20 08:10 Q4HP PRN FOR PAIN OR TEMP Al Hydrox/Mg Hydrox/Simethicone 30 ml 12/13/19 19:56 Maalox Plus Susp 30 Udcup PO 01/12/20 19:55 Q6HP PRN HEARTBURN Albuterol/Ipratropium 3 ml 12/14/19 17:31 12/15/19 06:24 Duoneb 3 Ml Ampul NEB 01/13/20 17:30 3 ml RTQ6HP PRN Administration FOR SOB/WHEEZING Dextrose 12.5 gm 12/16/19 03:45 Dextrose Inj 50% Syringe (25 Gm/50 Ml) IV 01/15/20 03:44 PRN PRN FOR BG 50-69 IN ALERT PATIENT Protocol Dextrose 25 gm 12/16/19 03:45 Dextrose Inj 50% Syringe (25 Gm/50 Ml) IV 01/15/20 03:44 PRN PRN See Label Comments Protocol Docusate Sodium 100 mg 12/16/19 18:00 12/16/19 17:17 Colace Udc 100 Mg/10 Ml Oral Soln PO 01/15/20 17:59 100 mg BID KAROL Administration Glucagon 1 mg 12/16/19 03:45 Glucagen Inj 1 Mg Vial SUBCUT 01/15/20 03:44 PRN PRN Evaluate for BG < 70 Protocol Glucose 15 gm 12/16/19 03:45 Glutose 40% Gel 15 Gm Tube PO 01/15/20 03:44 PRN PRN For BG 50-69 in Alert Patient Protocol Glucose 30 gm 12/16/19 03:45 Glutose 40% Gel 15 Gm Tube PO 01/15/20 03:44 PRN PRN FOR BG < 50 IN ALERT PATIENT Protocol Haloperidol Lactate 2 mg 12/15/19 17:39 12/16/19 13:24 Haldol 5 Mg/Ml Inj 1 Ml Vial IV 01/14/20 17:38 2 mg Q4HP PRN Administration RESTLESSNESS/AGITATION Heparin Sodium (Porcine) 5,000 unit 12/13/19 22:00 12/17/19 05:15 Heparin Inj 5,000 Units/Ml 1 Ml Vial SUBCUT 01/12/20 21:59 5,000 unit Q8 KAROL Administration Imipenem/Cilastatin Sodium 1, 250 mls @ 250 mls/hr 12/15/19 12:00 12/17/19 06:58 000 mg/ Sodium Chloride IV 12/22/19 11:59 Infused Q6 KAROL Infusion Propofol 1,000 mg in 100 mls @ 2.661 mls/hr 12/16/19 00:46 12/17/19 02:02 Diprivan Rtu 1000 Mg/100 Ml Inf.Bottle IV 01/15/20 00:45 15 mcg/kg/min CONTINUOUS PRN 7.98 mls/hr THIS MED IS NOT "PRN" Titration Protocol 5 MCG/KG/MIN Lactated Ringer's 1,000 mls @ 100 mls/hr 12/16/19 01:54 12/16/19 17:17 Lactated Ringers 1000 Ml Iv Soln IV 01/15/20 01:53 100 mls/hr CONTINUOUS PRN Administration THIS MED IS NOT "PRN" Fentanyl Citrate 600 mcg in 60 mls @ 0 mls/hr 12/16/19 13:22 12/17/19 02:54 Sublimaze Lens Marker/Pf 600 Mcg/60 Ml Rtu Vial IV 12/23/19 13:21 5 mls/hr ASDIR PRN Administration THIS MED IS NOT "PRN" Protocol Per Protocol Dopamine HCl/Dextrose 800 mg in 250 mls @ 0 mls/hr 12/16/19 17:25 12/17/19 06:46 Dopamine Rtu 800 Mg-D5w 250 Ml (Adult) Premix IV 01/15/20 17:24 15 mcg/kg/min CONTINUOUS PRN 24.27 mls/hr THIS MED IS NOT "PRN" Titration Protocol Titrate Pantoprazole Sodium 40 mg 12/16/19 11:00 12/17/19 05:15 Protonix Iv Inj 40 Mg Vial IV 12/23/19 10:59 40 mg Q6AM KAROL Administration Discontinued Medications Generic Name Dose Route Start Last Admin Trade Name Freq PRN Reason Stop Dose Admin Acetaminophen 650 mg 12/13/19 19:56 Tylenol 325 Mg Tablet PO 01/12/20 19:55 Q4HP PRN FOR PAIN OR TEMP Acetaminophen Confirm 12/15/19 07:43 12/15/19 10:44 Tylenol 650 Mg Supp Administered 12/15/19 07:44 Not Given Dose 650 mg RI .STK-MED ONE Albuterol 2 puff 12/13/19 16:18 12/13/19 19:48 Ventolin Hfa 8 Gm Mdi (1 Mdi/Er Disp) IH 12/13/19 16:19 Not Given NOW ONE Albuterol/Ipratropium 3 ml 12/13/19 19:56 12/14/19 12:34 Duoneb 3 Ml Ampul NEB 01/12/20 19:55 3 ml [id number] PRN Administration SHORTNESS OF BREATH Diazepam 5 mg 12/14/19 23:00 12/14/19 22:50 Valium Inj 10 Mg/2 Ml Disp.Syrin IV 12/14/19 23:01 5 mg NOW ONE Administration Diazepam 5 mg 12/15/19 08:21 12/15/19 08:50 Valium Inj 10 Mg/2 Ml Disp.Syrin IV 12/15/19 08:22 5 mg NOW ONE Administration Diazepam 5 mg 12/15/19 08:21 12/15/19 15:05 Valium Inj 10 Mg/2 Ml Disp.Syrin IV 12/22/19 08:20 5 mg Q6HP PRN Administration ANXIETY/AGITATION Diazepam 5 mg 12/15/19 11:30 12/15/19 10:58 Valium Inj 10 Mg/2 Ml Disp.Syrin IV 12/15/19 11:31 5 mg NOW ONE Administration Docusate Sodium 100 mg 12/14/19 10:00 12/16/19 13:23 Colace 100 Mg Capsule PO 01/13/20 09:59 Not Given BID KAROL Etomidate Confirm 12/15/19 23:01 12/16/19 03:27 Amidate Inj/Pf 20 Mg/10 Ml Sdv Administered 12/15/19 23:02 Not Given Dose 20 mg IV .STK-MED ONE Etomidate 10 mg 12/16/19 01:30 12/15/19 23:30 Amidate Inj/Pf 20 Mg/10 Ml Sdv IV 12/16/19 01:31 10 mg ONCE ONE Administration Furosemide 40 mg 12/15/19 18:20 12/15/19 18:37 Lasix Inj/Pf 40 Mg/4 Ml Sdv IV 12/15/19 18:21 40 mg NOW ONE Administration Furosemide 40 mg 12/16/19 15:19 12/16/19 17:17 Lasix Inj/Pf 40 Mg/4 Ml Sdv IV 12/16/19 15:20 40 mg NOW ONE Administration Haloperidol Lactate 1 mg 12/15/19 15:52 Haldol 5 Mg/Ml Inj 1 Ml Vial IV 01/14/20 15:51 Q6HP PRN RESTLESSNESS/AGITATION Sodium Chloride 1,000 mls @ 0 mls/hr 12/13/19 16:18 12/13/19 17:20 Nacl 0.9% 1000 Ml Iv Soln IV 12/13/19 16:19 Infused BOLUS ONE Infusion Wide Open Levofloxacin/Dextrose 150 mls @ 100 mls/hr 12/13/19 18:28 Levaquin Rtu 750 Mg/D5w 150 Ml Premix IV 12/13/19 19:57 NOW ONE Ceftriaxone Sodium/Dextrose 1 gm in 50 mls @ 100 mls/hr 12/13/19 18:31 12/13/19 19:48 Rocephin Rtu 1 Gm/D5w 50 Ml Premix IV 12/13/19 19:00 Infused NOW ONE Infusion Sodium Chloride 1,000 mls @ 0 mls/hr 12/13/19 18:33 12/13/19 19:49 Nacl 0.9% 1000 Ml Iv Soln IV 12/13/19 18:34 Infused BOLUS ONE Infusion Wide Open Sodium Chloride 1,000 mls @ 500 mls/hr 12/13/19 20:00 Nacl 0.9% 1000 Ml Iv Soln IV 01/12/20 19:59 X 3 BAGS KAROL Ceftriaxone Sodium/Dextrose 1 gm in 50 mls @ 100 mls/hr 12/14/19 18:00 12/14/19 19:17 Rocephin Rtu 1 Gm/D5w 50 Ml Premix IV 12/21/19 17:59 Infused QPM KAROL Infusion Vancomycin HCl 1,000 mg/ 250 mls @ 166.667 mls/hr 12/13/19 21:00 12/14/19 00 :00 Dextrose IV 12/13/19 22:29 Infused NOW ONE Infusion Vancomycin HCl 1,250 mg/ 250 mls @ 166.667 mls/hr 12/14/19 22:00 12/15/19 02:13 Dextrose IV 12/21/19 21:59 Infused QHS KAROL Infusion Sodium Chloride 1,000 mls @ 0 mls/hr 12/13/19 22:03 12/14/19 00:00 Nacl 0.9% 1000 Ml Iv Soln IV 12/13/19 22:04 Infused BOLUS ONE Infusion Wide Open Sodium Chloride 1,000 mls @ 200 mls/hr 12/14/19 00:49 12/14/19 16:05 Nacl 0.9% 1000 Ml Iv Soln IV Infused CONTINUOUS PRN Infusion THIS MED IS NOT "PRN" Sodium Chloride 500 mls @ 0 mls/hr 12/14/19 14:30 12/14/19 16:05 Nacl 0.9% 500 Ml Iv Soln IV 12/14/19 14:31 Infused BOLUS ONE Infusion Wide Open Sodium Chloride 1,000 mls @ 100 mls/hr 12/14/19 13:49 12/15/19 02:13 Nacl 0.9% 1000 Ml Iv Soln IV 01/13/20 13:48 0 mls/hr CONTINUOUS PRN Infusion THIS MED IS NOT "PRN" Sodium Chloride 1,000 mls @ 150 mls/hr 12/15/19 08:30 Nacl 0.9% 1000 Ml Iv Soln IV 01/13/20 13:48 CONTINUOUS PRN THIS MED IS NOT "PRN" Dextrose/Lactated Ringer's 1,000 mls @ 75 mls/hr 12/15/19 15:38 12/16/19 09:29 D5lr 1000 Ml Iv Soln IV 01/14/20 15:37 Infused CONTINUOUS PRN Infusion THIS MED IS NOT "PRN" Propofol Confirm 12/15/19 23:01 12/16/19 03:34 Diprivan Rtu 1000 Mg/100 Ml Inf.Bottle Administered 12/15/19 23:02 Not Given Dose 1,000 mg in 100 mls @ ud IV .STK-MED ONE Lactated Ringer's 1,000 mls @ 0 mls/hr 12/16/19 02:00 12/16/19 07:00 Lactated Ringers 1000 Ml Iv Soln IV 12/16/19 02:01 Infused BOLUS ONE Infusion Wide Open Lactated Ringer's 1,000 mls @ 0 mls/hr 12/16/19 04:07 12/16/19 07:00 Lactated Ringers 1000 Ml Iv Soln IV 12/16/19 04:08 Infused BOLUS ONE Infusion Wide Open Lactated Ringer's 1,000 mls @ 0 mls/hr 12/16/19 05:48 12/16/19 07:15 Lactated Ringers 1000 Ml Iv Soln IV 12/16/19 05:49 Infused BOLUS ONE Infusion Wide Open Dopamine HCl/Dextrose Confirm 12/16/19 07:03 12/16/19 15:34 Dopamine Rtu 800 Mg-D5w 250 Ml (Adult) Premix Administered 12/16/19 07:04 10 mcg/kg/min Dose 16.18 mls/hr 800 mg in 250 mls @ ud Infusion IV .STK-MED ONE Lidocaine HCl Confirm 12/14/19 00:40 12/14/19 02:43 Xylocaine 2% Uro-Jet 5 Ml Kit Administered 12/14/19 00:41 Not Given Dose 5 ml .ROUTE .STK-MED ONE Lidocaine HCl 5 ml 12/14/19 01:00 12/14/19 01:15 Xylocaine 2% Uro-Jet 5 Ml Kit MM 12/14/19 01:01 5 ml ONCE ONE Administration Morphine Sulfate Confirm 12/15/19 00:44 12/15/19 02:12 Morphine 10 Mg/Ml Inj Administered 12/15/19 00:45 Not Given Dose 10 mg .ROUTE .STK-MED ONE Morphine Sulfate 5 mg 12/15/19 02:00 12/15/19 02:00 Morphine 10 Mg/Ml Inj IV 12/15/19 02:01 5 mg ONCE ONE Administration Morphine Sulfate Confirm 12/15/19 20:45 12/16/19 00:15 Morphine 10 Mg/Ml Inj Administered 12/15/19 20:46 Not Given Dose 10 mg .ROUTE .STK-MED ONE Morphine Sulfate 5 mg 12/15/19 20:56 12/15/19 20:45 Morphine 10 Mg/Ml Inj IV 12/15/19 20:57 5 mg NOW ONE Administration Pantoprazole Sodium 40 mg 12/15/19 10:00 12/15/19 11:25 Protonix Iv Inj 40 Mg Vial IV 12/18/19 09:59 40 mg Q12 KAROL Administration Propofol Confirm 12/15/19 23:01 12/16/19 03:29 Diprivan Inj 200 Mg/20 Ml Vial Administered 12/15/19 23:02 Not Given Dose 200 mg IV .STK-MED ONE Propofol 50 mg 12/16/19 01:30 12/15/19 23:30 Diprivan Inj 200 Mg/20 Ml Vial IV 12/16/19 01:31 50 mg ONCE ONE Administration Propofol 50 mg 12/16/19 01:30 12/15/19 23:45 Diprivan Inj 200 Mg/20 Ml Vial IV 12/16/19 01:31 50 mg ONCE ONE Administration Vancomycin HCl Confirm 12/14/19 23:39 12/14/19 23:55 Vancocin Inj 1000 Mg Vial Administered 12/14/19 23:40 Not Given Dose 1,000 mg .ROUTE .STK-MED ONE Assessment & Plan - Diagnosis (1) Elevated brain natriuretic peptide (BNP) level Is this a current diagnosis for this admission?: Yes Plan: Likely secondary to HFpEF which is likely secondary to his suspected sepsis, needed fluid resuscitation and critical illness. His echocardiogram yesterday, although technically very limited, demonstrated a grossly normal LVSF. At this point there is no active cardiac issues responsible for his HF therefore I will sign off the case for now. Recommendations: -Agree with limiting/holding IVF. -Continue with IV diuresis at the discretion of the ICU staff. -Will sign off for now, please reconsult if deemed necessary. (2) Complete heart block Is this a current diagnosis for this admission?: Yes Plan: The patient is paced by a leadless device which baseline rate was increased at the request of Dr. Cassidy. Recommendations: -No need for further cardiac follow up at this time. -Please reconsult if deemed necessary. (3) Aortic stenosis Qualifiers: Cardiac valve disease etiology: etiology unspecified Qualified Code(s): I35.0 - Nonrheumatic aortic (valve) stenosis Is this a current diagnosis for this admission?: Yes Plan: The patient underwent TAVR for severe aortic stenosis with a 29 mm Mccormick Joanne 3 valve on 07/06/2017. Recommendations: -Continue with clinical follow-up.
[2019-12-17] MEDS: DOCUSATE SODIUM 100 MG/10 ML UDC PO SCH ×2 (12:53→17:18)
[2019-12-17] MEDS: HALOPERIDOL LACTATE INJ 5 MG/1 ML VIAL IV PRN (12:56)
[2019-12-17] MEDS ORDERED: FUROSEMIDE INJ/PF 40 MG/4 ML SDV IV ONE (13:06)
--- NOTE | 2019-12-17 13:14 | PDOC CRITICAL CARE PROG REPORT ---
General Date:: 12/17/19 ICU Day:: 2 Hospital Day:: 3 Resuscitation Status: Full Code Events in the past 12 to 24 Hours:: 79-year-old white male with a history of bronchogenic carcinoma and COPD. He also has a pacemaker in place but no known history of congestive heart failure. He came to the hospital 3 days ago after developing several days of GI symptoms followed by fever at home. History was provided by his but she also is not a very good historian. He was intubated the night before last and seems to be calming down. The x-ray looks better with diuresis and I believe we can hold off on thoracentesis at this point as his fever is down also. PMH: Cardiac history clarified with review of current radiographs and records from [facility]. He has had a TVAR and a newer but smaller pacemaker just over the apex of his heart with dating back to 2017. Care discussed with cardiology again today. Physical Exam Vital Signs: Temp Pulse Resp BP Pulse Ox 98.5 F 73 0 L 140/69 H 93 12/17/19 12:00 12/17/19 12:00 12/17/19 12:01 12/17/19 12:01 12/17/19 12:01 Intake & Output 12/16/19 12/17/19 12/18/19 06:59 06:59 06:59 Intake Total 627 6860 1215 Output Total 2193 3650 1020 Balance -1566 3210 195 Weight 86.3 kg 88.3 kg Weight/Height Weight 88.3 kg Height 5 ft 9 in General appearance: PRESENT: no acute distress, well-developed, well-nourished Eye exam: PRESENT: EOMI, PERRLA. ABSENT: conjunctival injection Neck exam: PRESENT: JVD. ABSENT: lymphadenopathy Respiratory exam: PRESENT: rales Cardiovascular exam: PRESENT: RRR GI/Abdominal exam: PRESENT: soft. ABSENT: tenderness Neurological exam: PRESENT: altered - Orally intubated and sedated Laboratory/Radiographs Laboratory Results: 12/16/19 17:40 12/16/19 17:40 12/16/19 12/16/19 17:40 17:40 WBC 7.0 RBC 3.54 L Hgb 11.2 L Hct 32.6 L MCV 92 MCH 31.7 MCHC 34.4 RDW 14.4 H Plt Count 128 L Seg Neutrophils % 78.0 Sodium 135.6 L Potassium 3.9 Chloride 104 Carbon Dioxide 26 Anion Gap 6 BUN 20 Creatinine 0.78 Est GFR ( Amer) > 60 Glucose 98 Calcium 8.0 L 12/13/19 12/13/19 12/13/19 15:28 15:28 19:20 Troponin I 0.092 0.075 NT-Pro-B Natriuret Pep 4360 H 12/16/19 04:39 Troponin I NT-Pro-B Natriuret Pep 7380 H Impressions: Chest/Abdomen CTA 12/15/19 00:00 IMPRESSION: 1. Slight increase in size of the right pleural effusion. 2. Development of a small left effusion since prior study. 3. No significant interval change in lung findings. 4. No pulmonary emboli. Head CT 12/15/19 00:00 IMPRESSION: No acute intracranial process. Mild microvascular ischemia. Ventricular enlargement out of proportion to U gyral atrophy suggests possible normal pressure hydrocephalus. EVIDENCE OF ACUTE STROKE: NO. Chest X-Ray 12/17/19 07:54 IMPRESSION: Tubes and lines good positioning. No change from yesterday KUB X-Ray 12/17/19 07:54 IMPRESSION: Nasogastric tube tip in the stomach, side port at the GE junction Assessment and Plan - Diagnosis (1) Acute metabolic encephalopathy Is this a current diagnosis for this admission?: Yes Plan Summary: Impression: Respiratory failure due to a combination of heart failure and an acute febrile illness He is doing better in regards to both Source of fever remains unclear with coronavirus testing pending Plan: Start nutritional support Lasix again today Pacemaker rate has been turned up to 70 Lab and chest x-ray again in a.m. Critical Time Critical Time (minutes): 35 Level of Care: ICU -: 1. The care of a critical patient is a dynamic process. This note is a solar manufacturer's representative synopsis but static in nature. The timeframe for treatments given in order is not necessarily the actual time these treatments may have been done. 2. This patient requires critical care secondary to ongoing requirements for therapy not offered or safe outside the critical care environment. Transfer to a lower level of care will result in altered life or limb morbidity and mortality. 3. Multidisciplinary rounds completed. 4. ABCDE bundle addressed.
[2019-12-17] MEDS ORDERED: FUROSEMIDE INJ/PF 40 MG/4 ML SDV ONE (17:17)
[2019-12-18] MEDS: FENTANYL CITRATE/PF 600 MCG/60 ML BAG IV PRN ×4 (02:04→21:19)
[2019-12-18] MEDS: DOPAMINE HCL 800 MG/D5W 250 ML IV PRN ×2 (02:05→11:24)
[2019-12-18] MEDS: PROPOFOL 1,000 MG/100 ML INFUS..BTL IV PRN ×3 (04:39→17:39)
[2019-12-18] MEDS: HEPARIN SOD (PORCINE) 5,000 UNIT/ML 1 ML VIAL SUBCUT SCH ×3 (05:46→21:19)
[2019-12-18] MEDS: PANTOPRAZOLE SODIUM 40 MG VIAL IV SCH (05:46)
[2019-12-18] MEDS: IMIPENEM/CILASTATIN SODIUM 1,000 MG in NORMAL SALINE 250 ML IV SCH ×4 (05:46→23:45)
[2019-12-18] MEDS: RINGERS SOLUTION,LACTATED 1,000 ML IV PRN ×2 (09:30→21:20)
[2019-12-18] MEDS: DOCUSATE SODIUM 100 MG/10 ML UDC PO SCH ×2 (11:23→17:42)
[2019-12-18] MEDS: HALOPERIDOL LACTATE INJ 5 MG/1 ML VIAL IV PRN (11:25)
--- NOTE | 2019-12-18 15:52 | PDOC CRITICAL CARE PROG REPORT ---
General Date:: 12/18/19 Resuscitation Status: Full Code Events in the past 12 to 24 Hours:: 79-year-old white male with a history of bronchogenic carcinoma and COPD. He also has a pacemaker in place but no known history of congestive heart failure. He came to the hospital 3 days ago after developing several days of GI symptoms followed by fever at home. History was provided by his but she also is not a very good historian. He was intubated 2 days ago and is slowly improving with diuresis. Blood pressure is soft today thus I will hold the Lasix today. He is tolerating his enteral feeds. PMH: Cardiac history clarified with review of current radiographs and records from [facility]. He has had a TVAR and a newer but smaller pacemaker just over the apex of his heart with dating back to 2017. Care discussed with cardiology again today. Physical Exam Vital Signs: Temp Pulse Resp BP Pulse Ox 99.9 F 70 10 L 101/46 L 92 12/18/19 14:00 12/18/19 14:00 12/18/19 14:25 12/18/19 14:22 12/18/19 14:25 Intake & Output 12/17/19 12/18/19 12/19/19 06:59 06:59 06:59 Intake Total 6860 3925 1276 Output Total 3650 5375 600 Balance 3210 -1450 676 Weight 88.3 kg 85.3 kg Weight/Height Weight 85.3 kg Height 5 ft 9 in General appearance: PRESENT: no acute distress, well-developed Eye exam: PRESENT: EOMI, PERRLA. ABSENT: conjunctival injection Mouth exam: PRESENT: neck supple Neck exam: ABSENT: JVD, lymphadenopathy Respiratory exam: PRESENT: decreased breath sounds Cardiovascular exam: PRESENT: RRR GI/Abdominal exam: PRESENT: soft. ABSENT: tenderness Neurological exam: PRESENT: altered - orally intubated and sedated Skin exam: PRESENT: dry, warm Laboratory/Radiographs Laboratory Results: 12/16/19 17:40 12/16/19 17:40 12/13/19 12/13/19 12/13/19 15:28 15:28 19:20 Troponin I 0.092 0.075 NT-Pro-B Natriuret Pep 4360 H 12/16/19 04:39 Troponin I NT-Pro-B Natriuret Pep 7380 H Impressions: Chest/Abdomen CTA 12/15/19 00:00 IMPRESSION: 1. Slight increase in size of the right pleural effusion. 2. Development of a small left effusion since prior study. 3. No significant interval change in lung findings. 4. No pulmonary emboli. Head CT 12/15/19 00:00 IMPRESSION: No acute intracranial process. Mild microvascular ischemia. Ventricular enlargement out of proportion to U gyral atrophy suggests possible normal pressure hydrocephalus. EVIDENCE OF ACUTE STROKE: NO. Chest X-Ray 12/17/19 07:54 IMPRESSION: Tubes and lines good positioning. No change from yesterday KUB X-Ray 12/17/19 07:54 IMPRESSION: Nasogastric tube tip in the stomach, side port at the GE junction Assessment and Plan - Diagnosis (1) Acute metabolic encephalopathy Is this a current diagnosis for this admission?: Yes Plan: Imp: Respiratory failure Congestive heart failure Status post aortic valve repair/replacement Pacemaker in place, rate increased to 70 Fever resolved Gram-negative rods in the urine Plan: Continue Merrem Enteral nutrition Lasix held today Off dopamine Chest x-ray and lab in am I appreciate cardiology input Critical Time Critical Time (minutes): 35 Level of Care: ICU -: 1. The care of a critical patient is a dynamic process. This note is a medical field representative synopsis but static in nature. The timeframe for treatments given in order is not necessarily the actual time these treatments may have been done. 2. This patient requires critical care secondary to ongoing requirements for therapy not offered or safe outside the critical care environment. Transfer to a lower level of care will result in altered life or limb morbidity and mortal ity. 3. Multidisciplinary rounds completed. 4. ABCDE bundle addressed.
[2019-12-19] MEDS: DOPAMINE HCL 800 MG/D5W 250 ML IV PRN ×3 (00:02→21:00)
[2019-12-19] MEDS: PROPOFOL 1,000 MG/100 ML INFUS..BTL IV PRN ×4 (02:45→23:27)
[2019-12-19 03:38] LABS: HEMATOCRIT 35.1 % (37.9-51.0); HEMOGLOBIN 12.4 g/dL (13.5-17.0); MEAN CORPUSCULAR HGB CONC 35.3 g/dL (32.0-36.0); MEAN CORPUSCULAR VOLUME 91 fl (80-97); PLATELET COUNT 206 10^3/uL (150-450); RED BLOOD COUNT 3.87 10^6/uL (4.35-5.55); RED CELL DISTRIBUTION WIDTH 14.6 % (11.5-14.0); WHITE BLOOD COUNT 6.1 10^3/uL (4.0-10.5)
[2019-12-19 03:52] LABS: BLOOD UREA NITROGEN 13 mg/dL (7-20); CALCIUM 7.9 mg/dL (8.4-10.2); CHLORIDE 100 mmol/L (98-107); GLUCOSE 144 mg/dL (75-110); POTASSIUM 3.2 mmol/L (3.6-5.0); TRIGLYCERIDES 291 mg/dL (<150)
[2019-12-19 03:58] LABS: CARBON DIOXIDE 36 mmol/L (22-30)
[2019-12-19 04:01] LABS: ANION GAP 2 (5-19)
[2019-12-19 04:05] LABS: ABSOLUTE LYMPHOCYTES# (MANUAL) 1.3 10^3/uL (0.5-4.7); ABSOLUTE MONOCYTES # (MANUAL) 0.4 10^3/uL (0.1-1.4); BAND NEUTROPHILS % (MANUAL) 4 % (3-5); BASOPHILS % (MANUAL) 1 % (0-2); EOSINOPHILS % (MANUAL) 3 % (0-6); LYMPHOCYTES % (MANUAL) 21 % (13-45); MONOCYTES % (MANUAL) 6 % (3-13); PLATELET COMMENT ADEQUATE; RBC MORPHOLOGY COMMENT NORMO-CYTIC/CHROMIC; SEGMENTED NEUTROPHILS % (MAN) 65 % (42-78); TOTAL CELLS COUNTED 100
[2019-12-19] MEDS: PANTOPRAZOLE SODIUM 40 MG VIAL IV SCH (05:15)
[2019-12-19] MEDS: HEPARIN SOD (PORCINE) 5,000 UNIT/ML 1 ML VIAL SUBCUT SCH ×3 (05:16→21:56)
[2019-12-19] MEDS: IMIPENEM/CILASTATIN SODIUM 1,000 MG in NORMAL SALINE 250 ML IV SCH ×4 (05:16→23:25)
[2019-12-19] MEDS: FENTANYL CITRATE/PF 600 MCG/60 ML BAG IV PRN ×2 (06:33→15:27)
--- NOTE | 2019-12-19 09:04 | RADIOLOGY REPORT (SQ) ---
EXAM DESCRIPTION: CHEST SINGLE VIEW IMAGES COMPLETED DATE/TIME: 12/19/2019 6:29 am REASON FOR STUDY: chf COMPARISON: 12/17/2019 NUMBER OF VIEWS: One view. TECHNIQUE: Single frontal radiographic image of the chest acquired. LIMITATIONS: None. FINDINGS: LUNGS AND PLEURA: Airspace disease in the right lung with relative sparing of the apex not significantly changed. Small effusions bilaterally. No pneumothorax. MEDIASTINUM AND HEART: Stable heart size and mediastinal structures. SUPPORT DEVICES: Appropriate location without change. BONY STRUCTURES: No acute findings. HARDWARE: None. OTHER: No other significant finding. IMPRESSION: STABLE APPEARANCE OF THE CHEST. SUPPORT DEVICES UNCHANGED. Reading location - IP/workstation name: [email or web address]
[2019-12-19] MEDS: RINGERS SOLUTION,LACTATED 1,000 ML IV PRN ×2 (09:48→22:06)
[2019-12-19] MEDS: DOCUSATE SODIUM 100 MG/10 ML UDC PO SCH ×2 (12:43→18:28)
--- NOTE | 2019-12-19 12:57 | PDOC CRITICAL CARE PROG REPORT ---
General Date:: 12/19/19 ICU Day:: 4 Ventilator Day:: 4 Hospital Day:: 5 Resuscitation Status: Full Code Events in the past 12 to 24 Hours:: Found to be relatively hypoadrenal. Starting vent weaning. Review of systems relevant to events:: Neurological, respiratory. Reason for ICU Addmission:: Intubated and requiring pressors. - Medications: Medications reviewed and adjusted accordingly: Yes Vasopressors:: Dopamine Sedation:: Propofol and fentanyl. Physical Exam Vital Signs: Temp Pulse Resp BP Pulse Ox 99.0 F 79 12 138/62 H 94 12/19/19 08:00 12/19/19 10:31 12/19/19 10:31 12/19/19 10:31 12/19/19 10:31 Intake & Output 12/18/19 12/19/19 12/20/19 06:59 06:59 06:59 Intake Total 3925 3213 1452 Output Total 5375 1520 175 Balance -1450 1693 1277 Weight 85.3 kg 87.4 kg 87.4 kg Weight/Height Weight 87.4 kg Height 5 ft 9 in General appearance: PRESENT: no acute distress, disheveled Head exam: PRESENT: atraumatic, normocephalic Eye exam: PRESENT: conjunctiva pink, EOMI, PERRLA. ABSENT: scleral icterus Ear exam: PRESENT: normal external ear exam Mouth exam: PRESENT: moist, tongue midline Respiratory exam: PRESENT: clear to auscultation donal, crackles, decreased breath sounds. ABSENT: rales, rhonchi, wheezes Cardiovascular exam: PRESENT: RRR. ABSENT: diastolic murmur, rubs, systolic murmur GI/Abdominal exam: PRESENT: normal bowel sounds, soft. ABSENT: distended, guarding, mass, organolmegaly, rebound, tenderness Rectal exam: PRESENT: deferred Gentrourinary exam: PRESENT: indwelling catheter Extremities exam: PRESENT: full ROM. ABSENT: calf tenderness, clubbing, pedal edema Musculoskeletal exam: PRESENT: normal inspection Neurological exam: PRESENT: altered Skin exam: PRESENT: dry, intact, warm. ABSENT: cyanosis, rash Tubes/Lines: PRESENT: Endotracheal Tube, Nasogastic Tube Laboratory/Radiographs Laboratory Results: 12/19/19 03:30 12/19/19 03:30 12/19/19 12/19/19 03:30 03:30 WBC 6.1 RBC 3.87 L Hgb 12.4 L Hct 35.1 L MCV 91 MCH 32.0 MCHC 35.3 RDW 14.6 H Plt Count 206 Seg Neutrophils % Not Reportable Sodium 138.2 Potassium 3.2 L Chloride 100 Carbon Dioxide 36 H Anion Gap 2 L BUN 13 Creatinine 0.64 Est GFR ( Amer) > 60 Glucose 144 H Calcium 7.9 L Triglycerides 291 H 12/13/19 18:30 Blood Blood Culture - Final NO GROWTH IN 5 DAYS 12/13/19 16:38 Blood Blood Culture - Final NO GROWTH IN 5 DAYS 12/13/19 12/13/19 12/13/19 15:28 15:28 19:20 Troponin I 0.092 0.075 NT-Pro-B Natriuret Pep 4360 H 12/16/19 04:39 Troponin I NT-Pro-B Natriuret Pep 7380 H Impressions: Chest/Abdomen CTA 12/15/19 00:00 IMPRESSION: 1. Slight increase in size of the right pleural effusion. 2. Development of a small left effusion since prior study. 3. No significant interval change in lung findings. 4. No pulmonary emboli. Head CT 12/15/19 00:00 IMPRESSION: No acute intracranial process. Mild microvascular ischemia. Ventricular enlargement out of proportion to U gyral atrophy suggests possible normal pressure hydrocephalus. EVIDENCE OF ACUTE STROKE: NO. KUB X-Ray 12/17/19 07:54 IMPRESSION: Nasogastric tube tip in the stomach, side port at the GE junction Chest X-Ray 12/19/19 07:00 IMPRESSION: STABLE APPEARANCE OF THE CHEST. SUPPORT DEVICES UNCHANGED. All labs, radiographs, diagnostic studies and EKGs were personally reviewed: Yes In addition, reports of radiographic and diagnostic studies were read: Yes Assessment and Plan - Diagnosis (1) Sepsis Qualifiers: Sepsis type: sepsis due to unspecified organism Sepsis acute organ dysfunction status: with acute organ dysfunction Severe sepsis acute organ dysfunction type: acute renal failure Acute renal failure type: unspecified Severe sepsis shock status: unspecified Qualified Code(s): A41.9 - Sepsis, unspecified organism; R65.20 - Severe sepsis without septic shock; N17.9 - Acute kidney failure, unspecified Is this a current diagnosis for this admission?: Yes Plan: He has a UTI with klebsiella and E coli. He also appears to have a PNA in the RLL ar an aspiration given his GI symptoms. Still a COVID rule out but he has other reasons to has sepsis and a fever. Continue antibiotics and await COVID results. (2) Acute metabolic encephalopathy Is this a current diagnosis for this admission?: Yes Plan: Likely due to age, sepsis, possible aspiration. (3) COPD (chronic obstructive pulmonary disease) Qualifiers: COPD type: emphysema Emphysema type: centrilobular Qualified Code(s): J43.2 - Centrilobular emphysema Is this a current diagnosis for this admission?: Yes Plan: Severe and will attempt weaning today. (4) UTI (urinary tract infection) Qualifiers: Urinary tract infection type: site unspecified Hematuria presence: without hematuria Qualified Code(s): N39.0 - Urinary tract infection, site not specified Is this a current diagnosis for this admission?: Yes Plan: Growing klebsiella and E coli both pansensitive, continue antibiotics X 5 days. (5) Hypoadrenalism Is this a current diagnosis for this admission?: Yes Plan: A level of 15 under this degree of stress is hypoadrenal. Starting steroids and may see a bounce in BP. Plan Summary: Attempt to wean vent Critical Time Critical Time (minutes): 35 Level of Care: ICU Anticipated discharge: Acute Rehab Within: Other -: 1. The care of a critical patient is a dynamic process. This note is a product sales representative synopsis but static in nature. The timeframe for treatments given in order is not necessarily the actual time these treatments may have been done. 2. This patient requires critical care secondary to ongoing requirements for therapy not offered or safe outside the critical care environment. Transfer to a lower level of care will result in altered life or limb morbidity and mortality. 3. Multidisciplinary rounds completed. 4. ABCDE bundle addressed.
[2019-12-19] MEDS ORDERED: ASPIRIN 81 MG TABLET, ENT COATED PO SCH (13:00)
[2019-12-19] MEDS: HYDROCORTISONE SOD SUCCINATE INJ/PF 100 MG/2 ML SDV IV SCH ×2 (15:00→21:56)
[2019-12-19] MEDS: ASPIRIN 81 MG TABLET, CHEWABLE PO SCH (15:00)
[2019-12-19] MEDS: DEXTROSE 5%-WATER 250 ML with NOREPINEPHRINE BITARTRATE 4 MG IV PRN ×2 (21:55)
[2019-12-19] MEDS: ATORVASTATIN CALCIUM 80 MG TABLET PO SCH (21:56)
[2019-12-20] MEDS: FENTANYL CITRATE/PF 600 MCG/60 ML BAG IV PRN ×2 (00:09→14:45)
[2019-12-20] MEDS ORDERED: NOREPINEPHRINE BITARTRATE INJ/PF 4 MG/4 ML SDV IV ONE (04:02)
[2019-12-20 04:16] LABS: ARTERIAL BLOOD BASE EXCESS 4.6 mmol/L; ARTERIAL BLOOD H2CO3 1.88 mmol/L (1.05-1.35); ARTERIAL BLOOD HCO3 32.3 mmol/L (20-24); ARTERIAL BLOOD O2 SATURATION 93.8 % (94-98); ARTERIAL BLOOD PCO2 62.4 mmHg (35-45); ARTERIAL BLOOD PH 7.33 (7.35-7.45); ARTERIAL BLOOD PO2 75.2 mmHg (80-100); ARTERIAL BLOOD TOTAL CO2 34.2 mmol/L (23-27)
[2019-12-20 04:19] LABS: ARTERIAL BLOOD FIO2 40%
[2019-12-20] MEDS: DEXTROSE 5%-WATER 250 ML with NOREPINEPHRINE BITARTRATE 4 MG IV PRN ×4 (04:21→11:05)
[2019-12-20 04:27] LABS: BLOOD UREA NITROGEN 15 mg/dL (7-20); CALCIUM 7.8 mg/dL (8.4-10.2); GLUCOSE 195 mg/dL (75-110); PHOSPHORUS 2.8 mg/dL (2.5-4.5); POTASSIUM 3.5 mmol/L (3.6-5.0)
[2019-12-20 04:33] LABS: CARBON DIOXIDE 34 mmol/L (22-30); CHLORIDE 100 mmol/L (98-107)
[2019-12-20 04:38] LABS: ANION GAP 4 (5-19)
[2019-12-20] MEDS: PROPOFOL 1,000 MG/100 ML INFUS..BTL IV PRN (05:36)
[2019-12-20] MEDS: HYDROCORTISONE SOD SUCCINATE INJ/PF 100 MG/2 ML SDV IV SCH ×3 (05:38→22:50)
[2019-12-20] MEDS: IMIPENEM/CILASTATIN SODIUM 1,000 MG in NORMAL SALINE 250 ML IV SCH ×3 (05:38→17:30)
[2019-12-20] MEDS: HEPARIN SOD (PORCINE) 5,000 UNIT/ML 1 ML VIAL SUBCUT SCH ×3 (05:38→22:50)
[2019-12-20] MEDS ORDERED: PANTOPRAZOLE SODIUM 40 MG TABLET.DR PO SCH (06:00)
[2019-12-20] MEDS ORDERED: HALOPERIDOL LACTATE INJ 5 MG/1 ML VIAL IV PRN (07:22)
[2019-12-20] MEDS ORDERED: QUETIAPINE FUMARATE 25 MG TABLET NG ONE (08:00)
[2019-12-20] MEDS: DOCUSATE SODIUM 100 MG/10 ML UDC PO SCH ×2 (09:16→17:30)
[2019-12-20] MEDS: ASPIRIN 81 MG TABLET, CHEWABLE PO SCH (09:16)
[2019-12-20] MEDS: DEXMEDETOMIDINE IN 0.9 % NACL 400 MCG/100 ML RTUPB IV PRN ×2 (10:15→17:35)
[2019-12-20] MEDS ORDERED: DEXMEDETOMIDINE IN 0.9 % NACL 400 MCG/100 ML RTUPB IV ONE (10:15)
--- NOTE | 2019-12-20 10:22 | PDOC CRITICAL CARE PROG REPORT ---
General Date:: 12/20/19 ICU Day:: 5 Ventilator Day:: 5 Hospital Day:: 6 Resuscitation Status: Full Code Events in the past 12 to 24 Hours:: Beginning to overbreathe the vent. Starting to wean. Review of systems relevant to events:: Respiratory, neurological. Reason for ICU Addmission:: Intubated and requiring pressors. - Medications: Medications reviewed and adjusted accordingly: Yes Vasopressors:: Levophed Sedation:: Propofol Physical Exam Vital Signs: Temp Pulse Resp BP Pulse Ox 97.7 F 79 13 131/65 H 95 12/20/19 08:00 12/20/19 08:00 12/20/19 08:00 12/20/19 08:00 12/20/19 08:00 Intake & Output 12/19/19 12/20/19 12/21/19 06:59 06:59 06:59 Intake Total 3213 5149 Output Total 1520 1735 225 Balance 1693 3414 -225 Weight 87.4 kg 90.9 kg Weight/Height Weight 90.9 kg Height 5 ft 9 in General appearance: PRESENT: no acute distress, disheveled Head exam: PRESENT: atraumatic, normocephalic Eye exam: PRESENT: conjunctiva pink, EOMI, PERRLA. ABSENT: scleral icterus Ear exam: PRESENT: normal external ear exam Mouth exam: PRESENT: moist, tongue midline Respiratory exam: PRESENT: clear to auscultation donal. ABSENT: rales, rhonchi, wheezes Cardiovascular exam: PRESENT: RRR. ABSENT: diastolic murmur, rubs, systolic murmur GI/Abdominal exam: PRESENT: normal bowel sounds, soft. ABSENT: distended, guarding, mass, organolmegaly, rebound, tenderness Rectal exam: PRESENT: deferred Gentrourinary exam: PRESENT: indwelling catheter Extremities exam: PRESENT: full ROM. ABSENT: calf tenderness, clubbing, pedal edema Neurological exam: PRESENT: other - Sedated. Psychiatric exam: PRESENT: agitated - Occassionally Skin exam: PRESENT: dry, intact, warm. ABSENT: cyanosis, rash Tubes/Lines: PRESENT: Endotracheal Tube, Arterial Catheter, Nasogastic Tube Laboratory/Radiographs Laboratory Results: 12/19/19 03:30 12/20/19 04:03 12/20/19 12/20/19 04:03 04:03 Carbonic Acid 1.88 H HCO3/H2CO3 Ratio 17:1 ABG pH 7.33 L ABG pCO2 62.4 H ABG pO2 75.2 L ABG HCO3 32.3 H ABG O2 Saturation 93.8 L ABG Base Excess 4.6 FiO2 40% Sodium 137.7 Potassium 3.5 L Chloride 100 Carbon Dioxide 34 H Anion Gap 4 L BUN 15 Creatinine 0.59 Est GFR ( Amer) > 60 Glucose 195 H Calcium 7.8 L Phosphorus 2.8 Magnesium 1.6 12/15/19 08:06 Blood Blood Culture - Final NO GROWTH IN 5 DAYS 12/15/19 08:12 Blood Blood Culture - Final NO GROWTH IN 5 DAYS 12/13/19 12/13/19 12/13/19 15:28 15:28 19:20 Troponin I 0.092 0.075 NT-Pro-B Natriuret Pep 4360 H 12/16/19 04:39 Troponin I NT-Pro-B Natriuret Pep 7380 H Impressions: Chest/Abdomen CTA 12/15/19 00:00 IMPRESSION: 1. Slight increase in size of the right pleural effusion. 2. Development of a small left effusion since prior study. 3. No significant interval change in lung findings. 4. No pulmonary emboli. Head CT 12/15/19 00:00 IMPRESSION: No acute intracranial process. Mild microvascular ischemia. Ventricular enlargement out of proportion to U gyral atrophy suggests possible normal pressure hydrocephalus. EVIDENCE OF ACUTE STROKE: NO. KUB X-Ray 12/17/19 07:54 IMPRESSION: Nasogastric tube tip in the stomach, side port at the GE junction Chest X-Ray 12/19/19 07:00 IMPRESSION: STABLE APPEARANCE OF THE CHEST. SUPPORT DEVICES UNCHANGED. All labs, radiographs, diagnostic studies and EKGs were personally reviewed: Yes In addition, reports of radiographic and diagnostic studies were read: Yes Assessment and Plan - Diagnosis (1) Sepsis Qualifiers: Sepsis type: sepsis due to unspecified organism Sepsis acute organ dysfunction status: with acute organ dysfunction Severe sepsis acute organ dysfunction type: acute renal failure Acute renal failure type: unspecified Severe sepsis shock status: unspecified Qualified Code(s): A41.9 - Sepsis, unspecified organism; R65.20 - Severe sepsis without septic shock; N17.9 - Acute kidney failure, unspecified Is this a current diagnosis for this admission?: Yes Plan: Resolved (2) Acute metabolic encephalopathy Is this a current diagnosis for this admission?: Yes Plan: Difficult to tell sedated, plan to change to precedex. Keep fentanyl at 25 mcg/hr for now. (3) COPD (chronic obstructive pulmonary disease) Qualifiers: COPD type: emphysema Emphysema type: centrilobular Qualified Code(s): J43.2 - Centrilobular emphysema Is this a current diagnosis for this admission?: Yes Plan: Mild wheezing on L, probably secretions. Otherwise not active. (4) UTI (urinary tract infection) Qualifiers: Urinary tract infection type: site unspecified Hematuria presence: without hematuria Qualified Code(s): N39.0 - Urinary tract infection, site not specified Is this a current diagnosis for this admission?: Yes Plan: Pansensitive, continue antibiotic for 5 days. (5) Hypoadrenalism Is this a current diagnosis for this admission?: Yes Plan: Segun on stress steroids, hope to wean levophed. Plan Summary: Start wean vent more aggressively. Critical Time Critical Time (minutes): 35 Level of Care: ICU Anticipated discharge: SNF Within: Other -: 1. The care of a critical patient is a dynamic process. This note is a signs sales representative synopsis but static in nature. The timeframe for treatments given in order is not necessarily the actual time these treatments may have been done. 2. This patient requires critical care secondary to ongoing requirements for therapy not offered or safe outside the critical care environment. Transfer to a lower level of care will result in altered life or limb morbidity and mortality. 3. Multidisciplinary rounds completed. 4. ABCDE bundle addressed.
[2019-12-20] MEDS: UMECLIDINIUM BROMIDE 62.5 MCG/DOSE IH SCH (10:24)
[2019-12-20] MEDS: CLOPIDOGREL BISULFATE 75 MG TABLET PO SCH (10:24)
[2019-12-20] MEDS: FERROUS SULFATE 325 MG TABLET PO SCH (10:24)
[2019-12-20] MEDS: MULTIVITAMIN TABLET PO SCH (10:24)
[2019-12-20] MEDS: RINGERS SOLUTION,LACTATED 1,000 ML IV PRN (11:15)
[2019-12-20] MEDS: ATORVASTATIN CALCIUM 80 MG TABLET PO SCH (22:50)
[2019-12-21] MEDS: DEXMEDETOMIDINE IN 0.9 % NACL 400 MCG/100 ML RTUPB IV PRN ×3 (00:30→19:10)
[2019-12-21] MEDS: IMIPENEM/CILASTATIN SODIUM 1,000 MG in NORMAL SALINE 250 ML IV SCH ×5 (00:45→23:25)
[2019-12-21] MEDS: RINGERS SOLUTION,LACTATED 1,000 ML IV PRN ×2 (02:33→14:19)
[2019-12-21] MEDS ORDERED: RACEPINEPHRINE HCL 2.25% NEB 0.5 ML AMPUL NEB ONE ×2 (03:57→04:05)
[2019-12-21] MEDS ORDERED: IPRATROPIUM/ALBUTEROL 0.5-2.5 MG/3 ML AMPUL NEB ONE (03:58)
[2019-12-21] MEDS: IPRATROPIUM/ALBUTEROL 0.5-2.5 MG/3 ML AMPUL NEB PRN (04:16)
[2019-12-21 06:10] LABS: BLOOD UREA NITROGEN 19 mg/dL (7-20); CALCIUM 7.8 mg/dL (8.4-10.2); GLUCOSE 123 mg/dL (75-110); PHOSPHORUS 2.6 mg/dL (2.5-4.5); POTASSIUM 3.2 mmol/L (3.6-5.0)
[2019-12-21 06:15] LABS: CARBON DIOXIDE 35 mmol/L (22-30); CHLORIDE 100 mmol/L (98-107)
[2019-12-21 06:19] LABS: ANION GAP 3 (5-19)
[2019-12-21] MEDS: MAGNESIUM SULFATE/D5W 1 GM/100 ML RTUPB IV SCH ×4 (06:38→09:54)
[2019-12-21] MEDS: HYDROCORTISONE SOD SUCCINATE INJ/PF 100 MG/2 ML SDV IV SCH ×3 (06:40→20:59)
[2019-12-21] MEDS ORDERED: POTASSIUM PHOS,M-BASIC-D-BASIC 60 MMOL in NORMAL SALINE 1000 ML 1,000 ML IV ONE ×2 (07:00→08:00)
--- NOTE | 2019-12-21 08:52 | RADIOLOGY REPORT (SQ) ---
EXAM DESCRIPTION: CHEST SINGLE VIEW IMAGES COMPLETED DATE/TIME: 12/21/2019 8:26 am REASON FOR STUDY: r/o new or worsening infiltrate COMPARISON: 12/19/2011 EXAM PARAMETERS: NUMBER OF VIEWS: One view. TECHNIQUE: Single frontal radiographic view of the chest acquired. RADIATION DOSE: NA LIMITATIONS: None. FINDINGS: LUNGS AND PLEURA: Patchy multifocal opacities involving the right perihilar and lung base. Small right-sided pleural effusion, stable. Mild left retrocardiac and basilar opacities and small effusion, stable. No pneumothorax. MEDIASTINUM AND HILAR STRUCTURES: Stable with right perihilar opacities HEART AND VASCULAR STRUCTURES: Normal heart size. Aortic valvular prosthesis. BONES: No acute findings. HARDWARE: Right internal jugular central venous catheter tip at SVC. Surgical clips overlie right he mithorax. Aortic valvular prosthesis. Extubation with removal of the enteric tube. OTHER: No other significant finding. IMPRESSION: Grossly stable patchy right mid lung and basilar airspace disease with small bilateral e ffusions. Unchanged left retrocardiac and basilar opacities. Extubation. TECHNICAL DOCUMENTATION: JOB ID: [id number] 2010 [employer]- All Rights Reserved Reading location - IP/workstation name: [email or web address]
[2019-12-21] MEDS: PANTOPRAZOLE SODIUM 40 MG VIAL IV SCH (09:13)
[2019-12-21] MEDS: FERROUS SULFATE 325 MG TABLET PO SCH (09:39)
[2019-12-21] MEDS: ASPIRIN 81 MG TABLET, CHEWABLE PO SCH (09:39)
[2019-12-21] MEDS: DOCUSATE SODIUM 100 MG/10 ML UDC PO SCH ×2 (09:39→18:20)
[2019-12-21] MEDS: UMECLIDINIUM BROMIDE 62.5 MCG/DOSE IH SCH (09:39)
[2019-12-21] MEDS: CLOPIDOGREL BISULFATE 75 MG TABLET PO SCH (09:40)
[2019-12-21] MEDS: MULTIVITAMIN TABLET PO SCH (09:40)
--- NOTE | 2019-12-21 11:53 | PDOC CRITICAL CARE PROG REPORT ---
General Date:: 12/21/19 ICU Day:: 5 Hospital Day:: 7 Resuscitation Status: Full Code Events in the past 12 to 24 Hours:: Self-extubated. Review of systems relevant to events:: Respiratory, neurological. Reason for ICU Addmission:: Extubated and almost off levophed. - Medications: Medications reviewed and adjusted accordingly: Yes Vasopressors:: Levophed. Sedation:: None. Physical Exam Vital Signs: Temp Pulse Resp BP Pulse Ox 97.5 F 70 12 121/62 94 12/21/19 08:00 12/21/19 07:27 12/21/19 08:30 12/21/19 08:25 12/21/19 09:00 Intake & Output 12/20/19 12/21/19 12/22/19 06:59 06:59 06:59 Intake Total 5399 4395 352 Output Total 1735 1366 100 Balance 3664 3029 252 Weight 90.9 kg 94 kg Weight/Height Weight 94 kg Height 5 ft 9 in General appearance: PRESENT: no acute distress, disheveled, hard of hearing Head exam: PRESENT: atraumatic, normocephalic Eye exam: PRESENT: conjunctiva pink, EOMI, PERRLA. ABSENT: scleral icterus Ear exam: PRESENT: normal external ear exam Mouth exam: PRESENT: moist, tongue midline Respiratory exam: PRESENT: crackles, decreased breath sounds, unlabored, other - Increased AP diameter. Cardiovascular exam: PRESENT: RRR. ABSENT: diastolic murmur, rubs, systolic mu rmur Vascular exam: PRESENT: normal capillary refill GI/Abdominal exam: PRESENT: normal bowel sounds, soft. ABSENT: distended, guarding, mass, organolmegaly, rebound, tenderness Rectal exam: PRESENT: deferred Extremities exam: PRESENT: full ROM. ABSENT: calf tenderness, clubbing, pedal edema Neurological exam: PRESENT: altered, other - Still sedated from days of sedation Psychiatric exam: PRESENT: appropriate affect, normal mood. ABSENT: homicidal ideation, suicidal ideation Skin exam: PRESENT: dry, intact, warm. ABSENT: cyanosis, rash Tubes/Lines: PRESENT: Central Line Laboratory/Radiographs Laboratory Results: 12/19/19 03:30 12/21/19 04:45 12/21/19 04:45 Sodium 138.3 Potassium 3.2 L Chloride 100 Carbon Dioxide 35 H Anion Gap 3 L BUN 19 Creatinine 0.64 Est GFR ( Amer) > 60 Glucose 123 H Calcium 7.8 L Phosphorus 2.6 Magnesium 1.6 12/15/19 08:06 Blood Blood Culture - Final NO GROWTH IN 5 DAYS 12/15/19 08:12 Blood Blood Culture - Final NO GROWTH IN 5 DAYS 12/13/19 12/13/19 12/13/19 15:28 15:28 19:20 Troponin I 0.092 0.075 NT-Pro-B Natriuret Pep 4360 H 12/16/19 04:39 Troponin I NT-Pro-B Natriuret Pep 7380 H Impressions: Chest/Abdomen CTA 12/15/19 00:00 IMPRESSION: 1. Slight increase in size of the right pleural effusion. 2. Development of a small left effusion since prior study. 3. No significant interval change in lung findings. 4. No pulmonary emboli. Head CT 12/15/19 00:00 IMPRESSION: No acute intracranial process. Mild microvascular ischemia. Ventricular enlargement out of proportion to U gyral atrophy suggests possible normal pressure hydrocephalus. EVIDENCE OF ACUTE STROKE: NO. KUB X-Ray 12/17/19 07:54 IMPRESSION: Nasogastric tube tip in the stomach, side port at the GE junction Chest X-Ray 12/21/19 08:00 IMPRESSION: Grossly stable patchy right mid lung and basilar airspace disease with small bilateral effusions. Unchanged left retrocardiac and basilar opacities. Extubation. All labs, radiographs, diagnostic studies and EKGs were personally reviewed: Yes In addition, reports of radiographic and diagnostic studies were read: Yes Assessment and Plan - Diagnosis (1) COPD (chronic obstructive pulmonary disease) Qualifiers: COPD type: emphysema Emphysema type: centrilobular Qualified Code(s): J43.2 - Centrilobular emphysema Is this a current diagnosis for this admission?: Yes Plan: This is now controlled, but he is on bipap. Comfortable but O2 saturation is in low 90s which is probably fine for him. (2) Acute metabolic encephalopathy Is this a current diagnosis for this admission?: Yes Plan: Will need to reassess when the sedation is gone. (3) Sepsis Qualifiers: Sepsis type: sepsis due to unspecified organism Sepsis acute organ dysfunction status: with acute organ dysfunction Severe sepsis acute organ dysfunction type: acute renal failure Acute renal failure type: unspecified Severe sepsis shock status: unspecified Qualified Code(s): A41.9 - Sepsis, unspecified organism; R65.20 - Severe sepsis without septic shock; N17.9 - Acute kidney failure, unspecified Is this a current diagnosis for this admission?: Yes Plan: Resolved (4) UTI (urinary tract infection) Qualifiers: Urinary tract infection type: site unspecified Hematuria presence: without hematuria Qualified Code(s): N39.0 - Urinary tract infection, site not specified Is this a current diagnosis for this admission?: Yes Plan: One more day of antibiotics. (5) Hypoadrenalism Is this a current diagnosis for this admission?: Yes Plan: Start decreasing when he is off levophed. Plan Summary: Allow to wake fully, treat COPD as needed. Hope to downgrade when off levophed. Need COVID results. Critical Time Critical Time (minutes): 35 Level of Care: ICU Anticipated discharge: SNF Within: Other -: 1. The care of a critical patient is a dynamic process. This note is a retail customer service representative synopsis but static in nature. The timeframe for treatments given in order is not necessarily the actual time these treatments may have been done. 2. This patient requires critical care secondary to ongoing requirements for therapy not offered or safe outside the critical care environment. Transfer to a lower level of care will result in altered life or limb morbidity and mortality. 3. Multidisciplinary rounds completed. 4. ABCDE bundle addressed.
[2019-12-21] MEDS: DEXTROSE 5%-WATER 250 ML with NOREPINEPHRINE BITARTRATE 4 MG IV PRN ×2 (14:19)
[2019-12-21] MEDS ORDERED: BISACODYL 10 MG SUPP.RECT PR ONE (19:15)
[2019-12-21] MEDS: ATORVASTATIN CALCIUM 80 MG TABLET PO SCH (20:59)
[2019-12-22] MEDS: DEXMEDETOMIDINE IN 0.9 % NACL 400 MCG/100 ML RTUPB IV PRN ×8 (00:47→23:39)
[2019-12-22 03:42] LABS: BLOOD UREA NITROGEN 19 mg/dL (7-20); CALCIUM 7.6 mg/dL (8.4-10.2); GLUCOSE 130 mg/dL (75-110); PHOSPHORUS 3.5 mg/dL (2.5-4.5); POTASSIUM 3.3 mmol/L (3.6-5.0)
[2019-12-22 03:47] LABS: CARBON DIOXIDE 35 mmol/L (22-30); CHLORIDE 102 mmol/L (98-107)
[2019-12-22 03:50] LABS: INTERNATIONAL RATION (INR) 1.05; PROTHROMBIN TIME 13.7 SEC (11.4-15.4)
[2019-12-22 03:51] LABS: ANION GAP 1 (5-19)
[2019-12-22] MEDS: IMIPENEM/CILASTATIN SODIUM 1,000 MG in NORMAL SALINE 250 ML IV SCH (05:01)
[2019-12-22] MEDS: HYDROCORTISONE SOD SUCCINATE INJ/PF 100 MG/2 ML SDV IV SCH ×3 (05:02→18:36)
[2019-12-22] MEDS: RINGERS SOLUTION,LACTATED 1,000 ML IV PRN ×2 (05:03→16:55)
[2019-12-22] MEDS ORDERED: PHARMACY COMMUNICATION ORDER MC NR (08:45)
[2019-12-22] MEDS ORDERED: MAG HYDROX/AL HYDROX/SIMETH SUSP 30 ML UDCUP NG PRN (09:30)
[2019-12-22] MEDS ORDERED: ASPIRIN 81 MG TABLET, CHEWABLE NG SCH (10:00)
[2019-12-22] MEDS ORDERED: FERROUS SULFATE LIQUID 300 MG/5 ML UDC NG SCH (10:00)
[2019-12-22] MEDS ORDERED: CLOPIDOGREL BISULFATE 75 MG TABLET NG SCH (10:00)
--- NOTE | 2019-12-22 10:14 | PDOC CRITICAL CARE PROG REPORT ---
General Date:: 12/22/19 ICU Day:: 5 Hospital Day:: 8 Resuscitation Status: Full Code Events in the past 12 to 24 Hours:: Off bipap and a bit more lucid. Off levophed. Review of systems relevant to events:: Respiratory, neurological. Reason for ICU Addmission:: Extubated and almost off levophed. - Medications: Medications reviewed and adjusted accordingly: Yes Vasopressors:: None Sedation:: Precedex. Physical Exam Vital Signs: Temp Pulse Resp BP Pulse Ox 97.1 F 70 14 158/87 H 99 12/22/19 00:00 12/22/19 08:35 12/22/19 08:35 12/22/19 04:11 12/22/19 08:35 Intake & Output 12/21/19 12/22/19 12/23/19 06:59 06:59 06:59 Intake Total 4395 3602 97 Output Total 1366 2450 Balance 3029 1152 97 Weight 94 kg 94.6 kg Weight/Height Weight 94.6 kg Height 5 ft 9 in General appearance: PRESENT: no acute distress, disheveled Head exam: PRESENT: atraumatic, normocephalic Eye exam: PRESENT: conjunctiva pink, EOMI, PERRLA. ABSENT: scleral icterus Ear exam: PRESENT: normal external ear exam Mouth exam: PRESENT: moist, tongue midline Respiratory exam: PRESENT: clear to auscultation donal, decreased breath sounds Cardiovascular exam: PRESENT: RRR. ABSENT: diastolic murmur, rubs, systolic murmur GI/Abdominal exam: PRESENT: normal bowel sounds, soft. ABSENT: distended, guarding, mass, organolmegaly, rebound, tenderness Rectal exam: PRESENT: deferred Gentrourinary exam: PRESENT: indwelling catheter Extremities exam: PRESENT: full ROM. ABSENT: calf tenderness, clubbing, pedal edema Neurological exam: PRESENT: altered, awake, CN II-XII grossly intact Psychiatric exam: PRESENT: agitated - At times Skin exam: PRESENT: dry, intact, warm. ABSENT: cyanosis, rash Laboratory/Radiographs Laboratory Results: 12/19/19 03:30 12/22/19 03:02 12/22/19 03:02 Sodium 138.0 Potassium 3.3 L Chloride 102 Carbon Dioxide 35 H Anion Gap 1 L BUN 19 Creatinine 0.57 Est GFR ( Amer) > 60 Glucose 130 H Calcium 7.6 L Phosphorus 3.5 Magnesium 2.3 12/13/19 12/13/19 12/13/19 15:28 15:28 19:20 Troponin I 0.092 0.075 NT-Pro-B Natriuret Pep 4360 H 12/16/19 04:39 Troponin I NT-Pro-B Natriuret Pep 7380 H Impressions: Chest/Abdomen CTA 12/15/19 00:00 IMPRESSION: 1. Slight increase in size of the right pleural effusion. 2. Development of a small left effusion since prior study. 3. No significant interval change in lung findings. 4. No pulmonary emboli. Head CT 12/15/19 00:00 IMPRESSION: No acute intracranial process. Mild microvascular ischemia. Ventricular enlargement out of proportion to U gyral atrophy suggests possible normal pressure hydrocephalus. EVIDENCE OF ACUTE STROKE: NO. KUB X-Ray 12/17/19 07:54 IMPRESSION: Nasogastric tube tip in the stomach, side port at the GE junction Chest X-Ray 12/21/19 08:00 IMPRESSION: Grossly stable patchy right mid lung and basilar airspace disease with small bilateral effusions. Unchanged left retrocardiac and basilar op acities. Extubation. All labs, radiographs, diagnostic studies and EKGs were personally reviewed: Yes In addition, reports of radiographic and diagnostic studies were read: Yes Assessment and Plan - Diagnosis (1) COPD (chronic obstructive pulmonary disease) Qualifiers: COPD type: emphysema Emphysema type: centrilobular Qualified Code(s): J43.2 - Centrilobular emphysema Is this a current diagnosis for this admission?: Yes Plan: No wheezing, not active right now. (2) Acute metabolic encephalopathy Is this a current diagnosis for this admission?: Yes Plan: Still present. Combination of UTI, ICU, sedation factoring in to this. (3) Sepsis Qualifiers: Sepsis type: sepsis due to unspecified organism Sepsis acute organ dy sfunction status: with acute organ dysfunction Severe sepsis acute organ dysfunction type: acute renal failure Acute renal failure type: unspecified Severe sepsis shock status: unspecified Qualified Code(s): A41.9 - Sepsis, unspecified organism; R65.20 - Severe sepsis without septic shock; N17.9 - Acute kidney failure, unspecified Is this a current diagnosis for this admission?: Yes Plan: Resolved (4) UTI (urinary tract infection) Qualifiers: Urinary tract infection type: site unspecified Hematuria presence: without hematuria Qualified Code(s): N39.0 - Urinary tract infection, site not specified Is this a current diagnosis for this admission?: Yes Plan: Antibiotics to stop today. (5) Hypoadrenalism Is this a current diagnosis for this admission?: Yes Plan: Off levophed, begin taper Thursday. Plan Summary: Place NG for feeding. Try to wean off precedex. Hope to downgrade in AM or Sat. Critical Time Critical Time (minutes): 35 Level of Care: ICU Anticipated discharge: SNF Within: Other -: 1. The care of a critical patient is a dynamic process. This note is a personnel representative synopsis but static in nature. The timeframe for treatments given in order is not necessarily the actual time these treatments may have been done. 2. This patient requires critical care secondary to ongoing requirements for therapy not offered or safe outside the critical care environment. Transfer to a lower level of care will result in altered life or limb morbidity and mortality. 3. Multidisciplinary rounds completed. 4. ABCDE bundle addressed.
[2019-12-22] MEDS ORDERED: POLYETHYLENE GLYCOL 3350 POWDER 17 GM/1 PACKET PO ONE (11:23)
[2019-12-22] MEDS: PANTOPRAZOLE SODIUM 40 MG VIAL IV SCH (11:54)
--- NOTE | 2019-12-22 13:57 | RADIOLOGY REPORT (SQ) ---
EXAM DESCRIPTION: KUB/ABDOMEN (SINGLE VIEW) IMAGES COMPLETED DATE/TIME: 12/22/2019 12:19 pm REASON FOR STUDY: Check Placement of NG Tube COMPARISON: CT abdomen and pelvis 11/22/2019. Abdominal radiograph KUB, 12/17/2019 NUMBER OF VIEWS: One view. TECHNIQUE: Supine radiographic image of the abdomen acquired. LIMITATIONS: None. FINDINGS: BOWEL GAS PATTERN: Normal bowel gas pattern. No dilated loops. CALCIFICATIONS: No suspicious calcifications. SOFT TISSUES: No gross mass or suggestion of organomegaly. HARDWARE: An esophagogastric tube tip is below the diaphragm, with tip likely in the fundus of the st omach. BONES: No acute fracture. No worrisome bone lesions. OTHER: Small right pleural effusion. IMPRESSION: Esophagogastric tube tip is below the diaphragm likely within the fundus of the stomach. TECHNICAL DOCUMENTATION: JOB ID: [id number] 2010 [employer]- All Rights Reserved Reading location - IP/workstation name: [email or web address]
[2019-12-22] MEDS: MULTIVITAMIN TABLET PO SCH (14:47)
[2019-12-22] MEDS: POTASSIUM CHLORIDE 10 MEQ TABLET.ER PO SCH (14:47)
[2019-12-22] MEDS: DOCUSATE SODIUM 100 MG/10 ML UDC NG SCH ×2 (16:49→18:36)
[2019-12-22] MEDS: UMECLIDINIUM BROMIDE 62.5 MCG/DOSE IH SCH (16:51)
[2019-12-22] MEDS: NYSTATIN/DEXAMETH/DIPHEN SUSP 120 ML PO SCH (18:36)
[2019-12-22] MEDS ORDERED: POTASSI CL 20 MEQ/D5-1/2NS 1L 1,000 ML IV PRN (20:14)
[2019-12-22] MEDS ORDERED: BISACODYL 10 MG SUPP.RECT PR ONE (20:17)
[2019-12-22] MEDS ORDERED: HALOPERIDOL LACTATE INJ 5 MG/1 ML VIAL IV PRN (21:56)
[2019-12-22] MEDS ORDERED: ATORVASTATIN CALCIUM 80 MG TABLET NG SCH (22:00)
[2019-12-23] MEDS: IPRATROPIUM/ALBUTEROL 0.5-2.5 MG/3 ML AMPUL NEB SCH ×5 (00:13→20:48)
[2019-12-23] MEDS: DEXMEDETOMIDINE IN 0.9 % NACL 400 MCG/100 ML RTUPB IV PRN (02:54)
[2019-12-23 04:17] LABS: BLOOD UREA NITROGEN 21 mg/dL (7-20); CALCIUM 7.4 mg/dL (8.4-10.2); CHLORIDE 101 mmol/L (98-107); GLUCOSE 247 mg/dL (75-110); POTASSIUM 3.7 mmol/L (3.6-5.0)
[2019-12-23 04:18] LABS: HEMATOCRIT 31.6 % (37.9-51.0); MEAN CORPUSCULAR HEMOGLOBIN 31.8 pg (27.0-33.4); MEAN CORPUSCULAR HGB CONC 34.7 g/dL (32.0-36.0); MEAN CORPUSCULAR VOLUME 92 fl (80-97); PLATELET COUNT 191 10^3/uL (150-450); RED BLOOD COUNT 3.45 10^6/uL (4.35-5.55); RED CELL DISTRIBUTION WIDTH 14.5 % (11.5-14.0); WHITE BLOOD COUNT 6.9 10^3/uL (4.0-10.5)
[2019-12-23 04:35] LABS: CARBON DIOXIDE 34 mmol/L (22-30)
[2019-12-23 04:36] LABS: ABSOLUTE LYMPHOCYTES# (MANUAL) 0.6 10^3/uL (0.5-4.7); ABSOLUTE MONOCYTES # (MANUAL) 0.3 10^3/uL (0.1-1.4); BASOPHILS % (MANUAL) 0 % (0-2); EOSINOPHILS % (MANUAL) 0 % (0-6); LYMPHOCYTES % (MANUAL) 8 % (13-45); MONOCYTES % (MANUAL) 4 % (3-13); SEGMENTED NEUTROPHILS % (MAN) 88 % (42-78); TOTAL CELLS COUNTED 100
[2019-12-23 04:37] LABS: ANION GAP 1 (5-19); ANISOCYTOSIS SLIGHT; PLATELET COMMENT ADEQUATE; SCHISTOCYTES SLIGHT; TEAR DROP CELLS SLIGHT; TOXIC GRANULATION SLIGHT
[2019-12-23] MEDS: HYDROCORTISONE SOD SUCCINATE INJ/PF 100 MG/2 ML SDV IV SCH ×2 (05:24→18:40)
[2019-12-23] MEDS ORDERED: PANTOPRAZOLE SODIUM 40 MG PACKET.DR NG SCH (06:00)
[2019-12-23] MEDS ORDERED: INSULIN REG, HUMAN 100 UNIT/ML 3 ML VIAL (PYX) SUBCUT SCH (06:00)
--- NOTE | 2019-12-23 06:52 | RADIOLOGY REPORT (SQ) ---
EXAM DESCRIPTION: [facility]: XR CHEST 1 VIEW CLINICAL HISTORY: 79 years Male; increased requirements; eval for worse infiltrate; lung cancer FINDINGS: Since 12/21/2019, there is persistent small right pleural effusion. Right pulmonary infiltrates have not changed significantly. There is persistent right hilar enlargement. Mild atelectasis at the left lung base. Blunting of left costophrenic angle is similar. No pneumothorax. Right IJ line tip in the SVC. 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 Mediastinum is unchanged. IMPRESSION: 1. No significant change
[2019-12-23] MEDS: POTASSI CL 20 MEQ/D5-1/2NS 1L 1,000 ML IV PRN (08:30)
--- NOTE | 2019-12-23 09:15 | PDOC CRITICAL CARE PROG REPORT ---
General Date:: 12/23/19 ICU Day:: 8 Hospital Day:: 9 Resuscitation Status: Full Code Events in the past 12 to 24 Hours:: Off bipap off pecedex, much more awake. Review of systems relevant to events:: Respiratory. neurological. Reason for ICU Addmission:: Plan to downgrade in AM - Medications: Medications reviewed and adjusted accordingly: Yes Vasopressors:: None Sedation:: None Physical Exam Vital Signs: Temp Pulse Resp BP Pulse Ox 96.2 F L 70 19 133/73 H 100 12/23/19 04:00 12/23/19 08:43 12/23/19 08:43 12/23/19 03:59 12/23/19 08:43 Intake & Output 12/22/19 12/23/19 12/24/19 06:59 06:59 06:59 Intake Total 3632 2364 4 Output Total 2450 2485 Balance 1182 -121 4 Weight 94.6 kg 93.7 kg Weight/Height Weight 93.7 kg Height 5 ft 9 in General appearance: PRESENT: no acute distress, cooperative, well-developed, well-nourished Head exam: PRESENT: atraumatic, normocephalic Eye exam: PRESENT: conjunctiva pink, EOMI, PERRLA. ABSENT: scleral icterus Ear exam: PRESENT: normal external ear exam Mouth exam: PRESENT: moist, tongue midline Respiratory exam: PRESENT: unlabored, wheezes - Mild wheezing in upper shetty. Cardiovascular exam: PRESENT: RRR. ABSENT: diastolic murmur, rubs, systolic murmur GI/Abdominal exam: PRESENT: normal bowel sounds, soft. ABSENT: distended, guarding, mass, organolmegaly, rebound, tenderness Rectal exam: PRESENT: deferred Gentrourinary exam: PRESENT: indwelling catheter Extremities exam: PRESENT: full ROM, other - Small skin tears and weeping in L lower arm.. ABSENT: calf tenderness, clubbing, pedal edema Neurological exam: PRESENT: alert, altered, awake, oriented to person, CN II-XII grossly intact Psychiatric exam: PRESENT: appropriate affect, normal mood. ABSENT: homicidal ideation, suicidal ideation Skin exam: PRESENT: skin tears Laboratory/Radiographs Laboratory Results: 12/23/19 03:28 12/23/19 03:28 12/23/19 12/23/19 03:28 03:28 WBC 6.9 RBC 3.45 L Hgb 11.0 L Hct 31.6 L MCV 92 MCH 31.8 MCHC 34.7 RDW 14.5 H Plt Count 191 Seg Neutrophils % Not Reportable Sodium 136.0 L Potassium 3.7 Chloride 101 Carbon Dioxide 34 H Anion Gap 1 L BUN 21 H Creatinine 0.57 Est GFR ( Amer) > 60 Glucose 247 H Calcium 7.4 L 12/13/19 12/13/19 12/13/19 15:28 15:28 19:20 Troponin I 0.092 0.075 NT-Pro-B Natriuret Pep 4360 H 12/16/19 04:39 Troponin I NT-Pro-B Natriuret Pep 7380 H Impressions: Chest/Abdomen CTA 12/15/19 00:00 IMPRESSION: 1. Slight increase in size of the right pleural effusion. 2. Development of a small left effusion since prior study. 3. No significant interval change in lung findings. 4. No pulmonary emboli. Head CT 12/15/19 00:00 IMPRESSION: No acute intracranial process. Mild microvascular ischemia. Ventr icular enlargement out of proportion to U gyral atrophy suggests possible normal pressure hydrocephalus. EVIDENCE OF ACUTE STROKE: NO. KUB X-Ray 12/22/19 08:45 IMPRESSION: Esophagogastric tube tip is below the diaphragm likely within the fundus of the stomach. Chest X-Ray 12/23/19 00:00 IMPRESSION: 1. No significant change All labs, radiographs, diagnostic studies and EKGs were personally reviewed: Yes In addition, reports of radiographic and diagnostic studies were read: Yes Assessment and Plan - Diagnosis (1) COPD (chronic obstructive pulmonary disease) Qualifiers: COPD type: emphysema Emphysema type: centrilobular Qualified Code(s): J43.2 - Centrilobular emphysema Is this a current diagnosis for this admission?: Yes Plan: Still wheezing slightly. Will not taper steroids today. Continue albuterol. (2) Acute metabolic encephalopathy Is this a current diagnosis for this admission?: Yes Plan: Seems to be clearing. (3) Sepsis Qualifiers: Sepsis type: sepsis due to unspecified organism Sepsis acute organ dysfunction status: with acute organ dysfunction Severe sepsis acute organ dysfunction type: acute renal failure Acute renal failure type: unspecified Severe sepsis shock status: unspecified Qualified Code(s): A41.9 - Sepsis, unspecified organism; R65.20 - Severe sepsis without septic shock; N17.9 - Acute kidney failure, unspecified Is this a current diagnosis for this admission?: Yes Plan: Resolved (4) UTI (urinary tract infection) Qualifiers: Urinary tract infection type: site unspecified Hematuria presence: without hematuria Qualified Code(s): N39.0 - Urinary tract infection, site not specified Is this a current diagnosis for this admission?: Yes Plan: Antibiotics to stop today. (5) Hypoadrenalism Is this a current diagnosis for this admission?: Yes Plan: Steroids lowered, will taper again in AM (6) Hypokalemia Is this a current diagnosis for this admission?: Yes Plan: Resolved for now. (7) Swallowing difficulty Qualifiers: Dysphagia type: unspecified Qualified Code(s): R13.10 - Dysphagia, unspecified Is this a current diagnosis for this admission?: Yes Plan: He is more awake, no NG and to get a speech evaluation today. Plan Summary: Just came off bipap and doing well. If this continues plan to downgrade in AM. US guided thoracentesis of R lung field. Critical Time Critical Time (minutes): 35 Level of Care: ICU Anticipated discharge: SNF Within: Other -: 1. The care of a critical patient is a dynamic process. This note is a commercial pest control representative synopsis but static in nature. The timeframe for treatments given in order is not necessarily the actual time these treatments may have been done. 2. This patient requires critical care secondary to ongoing requirements for therapy not offered or safe outside the critical care environment. Transfer to a lower level of care will result in altered life or limb morbidity and mortality. 3. Multidisciplinary rounds completed. 4. ABCDE bundle addressed.
[2019-12-23] MEDS: POTASSIUM CHLORIDE 10 MEQ TABLET.ER PO SCH (10:00)
[2019-12-23] MEDS: PANTOPRAZOLE SODIUM 40 MG VIAL IV SCH (11:07)
[2019-12-23] MEDS: UMECLIDINIUM BROMIDE 62.5 MCG/DOSE IH SCH (12:14)
--- NOTE | 2019-12-23 12:41 | RADIOLOGY REPORT (SQ) ---
EXAM DESCRIPTION: CHEST SINGLE VIEW IMAGES COMPLETED DATE/TIME: 12/23/2019 12:31 pm REASON FOR STUDY: S/P thoracentesis COMPARISON: 12/23/2019 EXAM PARAMETERS: NUMBER OF VIEWS: One view. TECHNIQUE: Single frontal radiographic view of the chest acquired. RADIATION DOSE: NA LIMITATIONS: None. FINDINGS: LUNGS AND PLEURA: Interval placement of a small bore left basilar chest tube. Improved ae ration with decreased size of the pleural effusion. Mild residual bibasilar opacities and small effu sions. No pneumothorax. Right perihilar consolidation and postsurgical change. MEDIASTINUM AND HILAR STRUCTURES: Stable right perihilar consolidation. HEART AND VASCULAR STRUCTURES: Stable. BONES: No acute findings. HARDWARE: Surgical clips overlie right chest and left lung base. Small bore right basilar chest tube . Aortic valvular hardware. OTHER: No other significant finding. IMPRESSION: Decreased size of the right pleural effusion status post chest tube placement. No pneum othorax. TECHNICAL DOCUMENTATION: JOB ID: [id number] 2010 [employer]- All Rights Reserved Reading location - IP/workstation name: [email or web address]
--- NOTE | 2019-12-23 13:30 | RADIOLOGY REPORT (SQ) ---
EXAM DESCRIPTION: U/S THORACENTESIS W/CHEST TUBE IMAGES COMPLETED DATE/TIME: 12/23/2019 1:00 pm REASON FOR STUDY: RT PL EFFUSION COMPARISON: CHEST X-RAY 12/23/2019 RADIATION DOSE: None LIMITATIONS: None. PROCEDURE: Procedure, risks, benefit, and alternative explained to patient's , who then gave wri tten consent. The posterior right chest wall was marked using ultrasound guidance. A time-out was c alled for correct marking verification. Chest prepped and draped using sterile technique. Local anes thesia achieved using 10 ml of 1% lidocaine injection. A 6fr Safe-T- Centesis set was introduced int o the right pleural space. A 0.35 guidewire was advanced through the catheter, and the catheter eduar jessi. A 10 [place] all-purpose drainage catheter was advanced over the wire into the pleural space. N o iris movement an the tube was secured sterilely. The chest tube was placed to pleura vac. Fluid w as aspirated. No immediate complications noted. Images acquired during the procedure were stored on PACS. FINDINGS: ENTRY SITE: posterior right chest. FLUID VOLUME: 50 mL FLUID ANALYSIS: Clear straw-colored fluid OTHER: Fluid sent to the lab for testing. IMPRESSION: SUCCESSFUL THORACENTESIS WITH CHEST TUBE PLACEMENT USING ULTRASOUND GUIDANCE. COMMENT: Patient medication list reviewed: Yes- Quality ID# [id number]:Eligible professional attests to doc umenting in the medical record they obtained, updated, or reviewed the patient's current medications. TECHNICAL DOCUMENTATION: JOB ID: [id number] 2010 [employer]- All Rights Reserved Reading location - IP/workstation name: [email or web address] [email or web address]
[2019-12-23] MEDS ORDERED: ASPIRIN 300 MG SUPP, RECTAL PR SCH (17:00)
[2019-12-23] MEDS: NYSTATIN/DEXAMETH/DIPHEN SUSP 120 ML PO SCH ×2 (18:39→21:48)
[2019-12-23] MEDS: DOCUSATE SODIUM 100 MG/10 ML UDC NG SCH (18:40)
[2019-12-24] MEDS: POTASSI CL 20 MEQ/D5-1/2NS 1L 1,000 ML IV PRN ×2 (01:22→17:40)
[2019-12-24] MEDS: IPRATROPIUM/ALBUTEROL 0.5-2.5 MG/3 ML AMPUL NEB SCH ×4 (02:33→20:11)
[2019-12-24] MEDS ORDERED: ZIPRASIDONE MESYLATE INJ/PF 20 MG SDV IM ONE (03:30)
[2019-12-24 05:15] LABS: BLOOD UREA NITROGEN 28 mg/dL (7-20); CALCIUM 8.2 mg/dL (8.4-10.2); CARBON DIOXIDE 36 mmol/L (22-30); CHLORIDE 104 mmol/L (98-107); GLUCOSE 90 mg/dL (75-110); PHOSPHORUS 2.7 mg/dL (2.5-4.5)
[2019-12-24 05:17] LABS: ANION GAP 1 (5-19); POTASSIUM 3.5 mmol/L (3.6-5.0)
[2019-12-24] MEDS: HYDROCORTISONE SOD SUCCINATE INJ/PF 100 MG/2 ML SDV IV SCH ×2 (05:41→17:21)
[2019-12-24] MEDS: PANTOPRAZOLE SODIUM 40 MG TABLET.DR PO SCH ×2 (05:42→05:51)
[2019-12-24] MEDS ORDERED: RINGERS SOLUTION,LACTATED 500 ML IV ONE (06:00)
[2019-12-24] MEDS: DOCUSATE SODIUM 100 MG/10 ML UDC PO SCH ×2 (10:42→17:21)
[2019-12-24] MEDS: ASPIRIN 81 MG TABLET, CHEWABLE PO SCH (10:42)
[2019-12-24] MEDS: UMECLIDINIUM BROMIDE 62.5 MCG/DOSE IH SCH (10:43)
[2019-12-24] MEDS: PHOSPHORUS #1 250 MG TABLET PO SCH ×3 (10:43→17:21)
[2019-12-24] MEDS: POTASSIUM CHLORIDE 10 MEQ TABLET.ER PO SCH (10:43)
[2019-12-24] MEDS: FERROUS SULFATE LIQUID 300 MG/5 ML UDC PO SCH (10:43)
[2019-12-24] MEDS: NYSTATIN/DEXAMETH/DIPHEN SUSP 120 ML PO SCH ×4 (10:43→21:32)
[2019-12-24] MEDS: CLOPIDOGREL BISULFATE 75 MG TABLET PO SCH (10:43)
[2019-12-24] MEDS: MULTIVITAMIN TABLET PO SCH (10:44)
--- NOTE | 2019-12-24 11:26 | PDOC CRITICAL CARE PROG REPORT ---
General Date:: 12/24/19 Hospital Day:: 9 Resuscitation Status: Full Code Events in the past 12 to 24 Hours:: More lucid, talkative, still confused. Review of systems relevant to events:: Neurological, respiratory. Reason for ICU Addmission:: Downgraded today. - Medications: Medications reviewed and adjusted accordingly: Yes Vasopressors:: None Sedation:: None Physical Exam Vital Signs: Temp Pulse Resp BP Pulse Ox 97.7 F 106 H 24 H 129/74 H 90 L 12/24/19 10:00 12/24/19 10:00 12/24/19 10:00 12/24/19 10:00 12/24/19 10:00 Intake & Output 12/23/19 12/24/19 12/25/19 06:59 06:59 06:59 Intake Total 2364 1037 Output Total 2485 6190 750 Balance -121 -5153 -750 Weight 93.7 kg 92.5 kg Weight/Height Weight 92.5 kg Height 5 ft 9 in General appearance: PRESENT: no acute distress, cooperative, hard of hearing Head exam: PRESENT: atraumatic, normocephalic Eye exam: PRESENT: conjunctiva pink, EOMI, PERRLA. ABSENT: scleral icterus Ear exam: PRESENT: normal external ear exam Mouth exam: PRESENT: moist, tongue midline Respiratory exam: PRESENT: clear to auscultation donal, decreased breath sounds Cardiovascular exam: PRESENT: tachycardia GI/Abdominal exam: PRESENT: normal bowel sounds, soft. ABSENT: distended, guarding, mass, organolmegaly, rebound, tenderness Rectal exam: PRESENT: deferred Extremities exam: PRESENT: full ROM, +1 edema. ABSENT: calf tenderness, clubbing, pedal edema Neurological exam: PRESENT: alert, altered, awake, oriented to person Skin exam: PRESENT: dry, intact, skin tears, warm. ABSENT: cyanosis, rash Laboratory/Radiographs Laboratory Results: 12/23/19 03:28 12/24/19 04:32 12/24/19 04:32 Sodium 140.5 Potassium 3.5 L Chloride 104 Carbon Dioxide 36 H Anion Gap 1 L BUN 28 H Creatinine 0.87 Est GFR ( Amer) > 60 Glucose 90 Calcium 8.2 L Phosphorus 2.7 12/13/19 12/13/19 12/13/19 15:28 15:28 19:20 Troponin I 0.092 0.075 NT-Pro-B Natriuret Pep 4360 H 12/16/19 04:39 Troponin I NT-Pro-B Natriuret Pep 7380 H Impressions: Chest/Abdomen CTA 12/15/19 00:00 IMPRESSION: 1. Slight increase in size of the right pleural effusion. 2. Development of a small left effusion since prior study. 3. No significant interval change in lung findings. 4. No pulmonary emboli. Head CT 12/15/19 00:00 IMPRESSION: No acute intracranial process. Mild microvascular ischemia. Ventricular enlargement out of proportion to U gyral atrophy suggests possible normal pressure hydrocephalus. EVIDENCE OF ACUTE STROKE: NO. KUB X-Ray 12/22/19 08:45 IMPRESSION: Esophagogastric tube tip is below the diaphragm likely within the fundus of the stomach. Chest X-Ray 12/23/19 00:00 IMPRESSION: Decreased size of the right pleural effusion status post chest tube placement. No pneumothorax. Thoracentesis Ultrasound 12/23/19 00:00 IMPRESSION: SUCCESSFUL THORACENTESIS WITH CHEST TUBE PLACEMENT USING ULTRASOUND GUIDANCE. 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 But still altered. Talked about his time in [place] (He was 5 years old at the end of the war). Quite talkative though making little sense (3) Sepsis Qualifiers: Sepsis type: sepsis due to unspecified organism Sepsis acute organ dysfunction status: with acute organ dysfunction Severe sepsis acute organ dysfunction type: acute renal failure Acute renal failure type: unspecified Severe sepsis shock status: unspecified Qualified Code(s): A41.9 - Sepsis, unspecified organism; R65.20 - Severe sepsis without septic shock; N17.9 - Acute kidney failure, unspecified Is this a current diagnosis for this admission?: Yes Plan: Resolved (4) UTI (urinary tract infection) Qualifiers: Urinary tract infection type: site unspecified Hematuria presence: without hematuria Qualified Code(s): N39.0 - Urinary tract infection, site not specified Is this a current diagnosis for this admission?: Yes Plan: Resolved, patricia out. (5) Hypoadrenalism Is this a current diagnosis for this admission?: Yes Plan: Change to prednisone. (6) Hypokalemia Is this a current diagnosis for this admission?: Yes Plan: A bit low. Replace with PO. (7) Swallowing difficulty Qualifiers: Dysphagia type: unspecified Qualified Code(s): R13.10 - Dysphagia, unspecified Is this a current diagnosis for this admission?: Yes Plan: Passed swallow test. On [facility] soft diet. Plan Summary: Downgrade to [facility] for safety. COVID still pending. Critical Time Critical Time (minutes): 25 Level of Care: CU Anticipated discharge: SNF Within: Other -: 1. The care of a critical patient is a dynamic process. This note is a bilingual inside sales representative synopsis but static in nature. The timeframe for treatments given in order is not necessarily the actual time these treatments may have been done. 2. This patient requires critical care secondary to ongoing requirements for therapy not offered or safe outside the critical care environment. Transfer to a lower level of care will result in altered life or limb morbidity and mortality. 3. Multidisciplinary rounds completed. 4. ABCDE bundle addressed.
[2019-12-24] MEDS ORDERED: POTASSIUM CHLORIDE 10 MEQ TABLET.ER PO SCH (16:00)
[2019-12-24] MEDS: ATORVASTATIN CALCIUM 80 MG TABLET PO SCH (21:32)
[2019-12-25] MEDS: IPRATROPIUM/ALBUTEROL 0.5-2.5 MG/3 ML AMPUL NEB SCH ×4 (04:41→20:07)
[2019-12-25] MEDS ORDERED: CHLORPROMAZINE HCL INJ 25 MG/1 ML AMPULE ONE (05:45)
[2019-12-25] MEDS: HYDROCORTISONE SOD SUCCINATE INJ/PF 100 MG/2 ML SDV IV SCH ×2 (05:51→17:22)
[2019-12-25] MEDS: PANTOPRAZOLE SODIUM 40 MG TABLET.DR PO SCH (05:51)
[2019-12-25] MEDS: MULTIVITAMIN TABLET PO SCH (10:12)
[2019-12-25] MEDS: POTASSIUM CHLORIDE 10 MEQ TABLET.ER PO SCH (10:12)
[2019-12-25] MEDS: CLOPIDOGREL BISULFATE 75 MG TABLET PO SCH (10:12)
[2019-12-25] MEDS: FERROUS SULFATE LIQUID 300 MG/5 ML UDC PO SCH (10:13)
[2019-12-25] MEDS: NYSTATIN/DEXAMETH/DIPHEN SUSP 120 ML PO SCH ×4 (10:13→21:24)
[2019-12-25] MEDS: DOCUSATE SODIUM 100 MG/10 ML UDC PO SCH ×2 (10:13→17:22)
[2019-12-25] MEDS: UMECLIDINIUM BROMIDE 62.5 MCG/DOSE IH SCH (10:13)
[2019-12-25] MEDS: ASPIRIN 81 MG TABLET, CHEWABLE PO SCH (10:13)
--- NOTE | 2019-12-25 10:52 | PDOC PROGRESS REPORT ---
Subjective Progress Note for:: 12/25/19 Subjective:: Patient transferred from intensive care unit on December 23. He was admitted with respiratory failure. He was found to have a right-sided pleural effusion and had a thoracentesis done placement of a chest tube attached to Pleur-evac. 50 mL of clear straw-colored fluid was aspirated Patient was on mechanical ventilation in the ICU and then was on BiPAP but is currently on nasal cannula. Patient states that he does use 2 L of oxygen at home. He is awake and alert and intermittently confused. Reason For Visit: ARF SEPSIS UTI Physical Exam Vital Signs: Temp Pulse Resp BP Pulse Ox 97.9 F 106 H 20 144/68 H 97 12/25/19 07:52 12/25/19 08:25 12/25/19 08:25 12/25/19 07:52 12/25/19 08:25 Intake & Output 12/24/19 12/25/19 12/26/19 06:59 06:59 06:59 Intake Total 1037 1645 Output Total 6190 750 1075 Balance -5153 895 -1075 Weight 92.5 kg 92.1 kg General appearance: PRESENT: no acute distress, cooperative Head exam: PRESENT: atraumatic Neck exam: ABSENT: JVD, thyromegaly Respiratory exam: PRESENT: decreased breath sounds, rhonchi, unlabored, other - R chest tube Cardiovascular exam: PRESENT: RRR, +S1, +S2 GI/Abdominal exam: PRESENT: normal bowel sounds, soft Rectal exam: PRESENT: deferred Neurological exam: PRESENT: alert, awake, oriented to person, oriented to situation Results Laboratory Results: 12/23/19 03:28 12/24/19 04:32 12/13/19 12/13/19 12/13/19 15:28 15:28 19:20 Troponin I 0.092 0.075 NT-Pro-B Natriuret Pep 4360 H 12/16/19 04:39 Troponin I NT-Pro-B Natriuret Pep 7380 H Impressions: Chest/Abdomen CTA 12/15/19 00:00 IMPRESSION: 1. Slight increase in size of the right pleural effusion. 2. Development of a small left effusion since prior study. 3. No significant interval change in lung findings. 4. No pulmonary emboli. Head CT 12/15/19 00:00 IMPRESSION: No acute intracranial process. Mild microvascular ischemia. Ventricular enlargement out of proportion to U gyral atrophy suggests possible normal pressure hydrocephalus. EVIDENCE OF ACUTE STROKE: NO. KUB X-Ray 12/22/19 08:45 IMPRESSION: Esophagogastric tube tip is below the diaphragm likely within the fundus of the stomach. Chest X-Ray 12/23/19 00:00 IMPRESSION: Decreased size of the right pleural effusion status post chest tube placement. No pneumothorax. Thoracentesis Ultrasound 12/23/19 00:00 IMPRESSION: SUCCESSFUL THORACENTESIS WITH CHEST TUBE PLACEMENT USING ULTRASOUND GUIDANCE. Assessment and Plan - Diagnosis (1) Multifocal pneumonia Is this a current diagnosis for this admission?: Yes Plan: . Completed his antibiotic course (2) Chest tube in place Is this a current diagnosis for this admission?: Yes Plan: We will follow serial chest x-ray. 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 Qualified Code(s): J43.2 - Centrilobular emphysema Is this a current diagnosis for this admission?: Yes (6) Sepsis Qualifiers: Sepsis type: sepsis due to unspecified organism Sepsis acute organ dysfunction status: with acute organ dysfunction Severe sepsis acute organ dysfunction type: acute renal failure Acute renal failure type: unspecified Severe sepsis shock status: unspecified Qualified Code(s): A41.9 - Sepsis, unspecified organism; R65.20 - Severe sepsis without septic shock; N17.9 - Acute kidney failure, unspecified Is this a current diagnosis for this admission?: Yes (7) UTI (urinary tract infection) Qualifiers: Urinary tract infection type: site unspecified Hematuria presence: without hematuria Qualified Code(s): N39.0 - Urinary tract infection, site not specified Is this a current diagnosis for this admission?: Yes (8) Acute and chronic respiratory failure Qualifiers: Respiratory failure complication: hypoxia Qualified Code(s): J96.21 - Acute and chronic respiratory failure with hypoxia Is this a current diagnosis for this admission?: Yes Plan: 90 extubated on 2 L of nasal cannula which he chronically uses - Plan Summary Summary: Multifocal pneumonia, COVID 19-negative COPD Diabetic encephalopathy Sepsis UTI secondary to E. coli and Klebsiella, completed treatment Hypoadrenalism History of lung cancer status post lobectomy and chemotherapy and radiation therapy Acute on chronic respiratory failure
--- NOTE | 2019-12-25 12:18 | RADIOLOGY REPORT (SQ) ---
EXAM DESCRIPTION: CHEST SINGLE VIEW IMAGES COMPLETED DATE/TIME: 12/25/2019 12:05 pm REASON FOR STUDY: Evaluation of chest tube therapy COMPARISON: 12/13/2019, 12/21/2019, of 12/23/2019 EXAM PARAMETERS: NUMBER OF VIEWS: One view. TECHNIQUE: Single frontal radiographic view of the chest acquired. RADIATION DOSE: NA LIMITATIONS: None. FINDINGS: LUNGS AND PLEURA: Resolved right pleural effusion. Right pleural space pigtail catheter u nchanged. Old post therapeutic changes in the right upper lobe and right hilar region. No acute right-sided in filtrates. Persistent small left pleural effusion with basilar airspace disease likely atelectasis. This is new compared to 12/13/2019, and stable compared to 12/23/2019. No pneumothorax MEDIASTINUM AND HILAR STRUCTURES: No masses. Contour normal. HEART AND VASCULAR STRUCTURES: No cardiomegaly. Aortic valve. Loop recorder. BONES: No acute findings. HARDWARE: Aortic valve, loop recorder OTHER: No other significant finding. IMPRESSION: Resolved right pleural effusion. No right pneumothorax. Right small caliber chest tube in place. Persistent small left pleural effusion with basilar airspace, unchanged from 12/23/2019 TECHNICAL DOCUMENTATION: JOB ID: [id number] 2010 [employer]- All Rights Reserved Reading location - IP/workstation name: [email or web address]
[2019-12-25] MEDS: POTASSI CL 20 MEQ/D5-1/2NS 1L 1,000 ML IV PRN (13:29)
[2019-12-25] MEDS: OXYCODONE HCL IR 5 MG TABLET PO PRN (21:15)
[2019-12-25] MEDS: ATORVASTATIN CALCIUM 80 MG TABLET PO SCH (21:15)
[2019-12-25] MEDS: CHLORPROMAZINE HCL INJ 25 MG/1 ML AMPULE IV PRN (22:24)
[2019-12-26] MEDS: IPRATROPIUM/ALBUTEROL 0.5-2.5 MG/3 ML AMPUL NEB SCH ×4 (03:47→19:50)
[2019-12-26] MEDS: HYDROCORTISONE SOD SUCCINATE INJ/PF 100 MG/2 ML SDV IV SCH ×2 (05:22→17:14)
[2019-12-26] MEDS: PANTOPRAZOLE SODIUM 40 MG TABLET.DR PO SCH (05:22)
[2019-12-26 05:44] LABS: ABSOLUTE LYMPHOCYTES (AUTO) 0.7 10^3/uL (0.5-4.7); ABSOLUTE MONOCYTES (AUTO) 0.4 10^3/uL (0.1-1.4); ABSOLUTE NEUT (AUTO) 6.7 10^3/uL (1.7-8.2); EOSINOPHILS % (AUTO) 0.1 % (0-6); HEMOGLOBIN 10.7 g/dL (13.5-17.0); LYMPHOCYTES % (AUTO) 8.9 % (13-45); MEAN CORPUSCULAR HEMOGLOBIN 31.7 pg (27.0-33.4); MEAN CORPUSCULAR HGB CONC 34.4 g/dL (32.0-36.0); MEAN CORPUSCULAR VOLUME 92 fl (80-97); MONOCYTES % (AUTO) 4.6 % (3-13); PLATELET COUNT 224 10^3/uL (150-450); RED BLOOD COUNT 3.36 10^6/uL (4.35-5.55); RED CELL DISTRIBUTION WIDTH 15.4 % (11.5-14.0); SEGMENTED NEUTROPHILS % (AUTO) 86.4 % (42-78); TOTAL CELLS COUNTED % (AUTO) 100 %; WHITE BLOOD COUNT 7.8 10^3/uL (4.0-10.5)
[2019-12-26 06:11] LABS: BLOOD UREA NITROGEN 25 mg/dL (7-20); CHLORIDE 107 mmol/L (98-107); GLUCOSE 133 mg/dL (75-110); POTASSIUM 4.2 mmol/L (3.6-5.0)
[2019-12-26 06:21] LABS: CARBON DIOXIDE 33 mmol/L (22-30)
[2019-12-26] MEDS: MULTIVITAMIN TABLET PO SCH (10:08)
[2019-12-26] MEDS: OXYCODONE HCL IR 5 MG TABLET PO PRN ×2 (10:08→19:57)
[2019-12-26] MEDS: CLOPIDOGREL BISULFATE 75 MG TABLET PO SCH (10:08)
[2019-12-26] MEDS: FERROUS SULFATE LIQUID 300 MG/5 ML UDC PO SCH (10:08)
[2019-12-26] MEDS: DOCUSATE SODIUM 100 MG/10 ML UDC PO SCH (10:08)
[2019-12-26] MEDS: POTASSI CL 20 MEQ/D5-1/2NS 1L 1,000 ML IV PRN (10:09)
[2019-12-26] MEDS: ASPIRIN 81 MG TABLET, CHEWABLE PO SCH (10:09)
[2019-12-26] MEDS: UMECLIDINIUM BROMIDE 62.5 MCG/DOSE IH SCH (10:09)
[2019-12-26] MEDS: NYSTATIN/DEXAMETH/DIPHEN SUSP 120 ML PO SCH ×4 (10:09→21:22)
[2019-12-26] MEDS: POTASSIUM CHLORIDE 10 MEQ TABLET.ER PO SCH (10:09)
--- NOTE | 2019-12-26 10:10 | RADIOLOGY REPORT (SQ) ---
EXAM DESCRIPTION: CHEST SINGLE VIEW IMAGES COMPLETED DATE/TIME: 12/26/2019 9:54 am REASON FOR STUDY: Chest tube therapy evaluation COMPARISON: 12/25/2019 NUMBER OF VIEWS: One view. TECHNIQUE: Single frontal radiographic image of the chest acquired. LIMITATIONS: None. FINDINGS: LUNGS AND PLEURA: Stable appearance. Small bore right-sided chest tube remains in place. MEDIASTINUM AND HILAR STRUCTURES: Stable heart size and mediastinal structures. HEART AND VASCULAR STRUCTURES: Stable appearance. BONES: No acute findings. HARDWARE: None in the chest. OTHER: No other significant finding. IMPRESSION: STABLE APPEARANCE OF THE CHEST. TECHNICAL DOCUMENTATION: JOB ID: [id number] 2010 [employer]- All Rights Reserved Reading location - IP/workstation name: [email or web address]
--- NOTE | 2019-12-26 11:29 | PDOC PROGRESS REPORT ---
Subjective Progress Note for:: 12/26/19 Subjective:: Patient transferred from intensive care unit on December 23. He was admitted with respiratory failure. He was found to have a right-sided pleural effusion and had a thoracentesis done placement of a chest tube attached to Pleur-evac. 50 mL of clear straw-colored fluid was aspirated Patient was on mechanical ventilation in the ICU and then was on BiPAP but is currently on nasal cannula. Patient states that he does use 2 L of oxygen at home. He is awake and alert and intermittently confused. 12/25 he remains intermittently confused although he recognized me as soon as I walked into the room. He also was able to talk about some current events and he knew what was going on. I did talk to his on the phone at the same time. She was concerned about his continuing confusion. I did explain that since patient was in ICU and intubated on Vera sedatives and hypnotics this could have had something to do with his confusion, possible ICU delirium on top of some encephalopathy. Reason For Visit: ARF SEPSIS UTI Physical Exam Vital Signs: Temp Pulse Resp BP Pulse Ox 97.3 F 74 19 145/63 H 100 12/26/19 08:27 12/26/19 08:27 12/26/19 08:27 12/26/19 08:27 12/26/19 08:27 Intake & Output 12/25/19 12/26/19 12/27/19 06:59 06:59 06:59 Intake Total 1645 1801 1000 Output Total 750 1595 140 Balance 895 206 860 Weight 92.1 kg 96.2 kg General appearance: PRESENT: no acute distress, obese, well-nourished Head exam: PRESENT: atraumatic, normocephalic Eye exam: PRESENT: EOMI, PERRLA. ABSENT: scleral icterus Mouth exam: PRESENT: tongue midline Neck exam: ABSENT: carotid bruit, JVD, lymphadenopathy, thyromegaly Respiratory exam: PRESENT: decreased breath sounds - Bilateral, rhonchi, other - chest tube R chest wall. ABSENT: rales, wheezes Cardiovascular exam: PRESENT: RRR, +S1, +S2. ABSENT: diastolic murmur, rubs, systolic murmur Pulses: PRESENT: normal dorsalis pedis pul Vascular exam: PRESENT: normal capillary refill GI/Abdominal exam: PRESENT: normal bowel sounds, soft. ABSENT: distended, guarding, mass, organolmegaly, rebound, tenderness Rectal exam: PRESENT: deferred Extremities exam: PRESENT: full ROM. ABSENT: calf tenderness, clubbing, pedal edema Neurological exam: PRESENT: alert, awake, oriented to person, oriented to place, oriented to time, oriented to situation, CN II-XII grossly intact, other - intermittent confusion. ABSENT: motor sensory deficit Psychiatric exam: PRESENT: appropriate affect, normal mood. ABSENT: homicidal ideation, suicidal ideation Skin exam: PRESENT: dry, intact, warm. ABSENT: cyanosis, rash Results Laboratory Results: 12/26/19 04:45 12/26/19 04:45 12/26/19 12/26/19 04:45 04:45 WBC 7.8 RBC 3.36 L Hgb 10.7 L Hct 31.0 L MCV 92 MCH 31.7 MCHC 34.4 RDW 15.4 H Plt Count 224 Seg Neutrophils % 86.4 H Sodium 139.8 Potassium 4.2 Chloride 107 Carbon Dioxide 33 H Anion Gap Not Reportable BUN 25 H Creatinine 0.75 Est GFR ( Amer) > 60 Glucose 133 H Calcium 8.0 L 12/23/19 11:45 Pleural Fluid Gram Stain - Final 12/13/19 12/13/19 12/13/19 15:28 15:28 19:20 Troponin I 0.092 0.075 NT-Pro-B Natriuret Pep 4360 H 12/16/19 04:39 Troponin I NT-Pro-B Natriuret Pep 7380 H Impressions: Chest/Abdomen CTA 12/15/19 00:00 IMPRESSION: 1. Slight increase in size of the right pleural effusion. 2. Development of a small left effusion since prior study. 3. No significant interval change in lung findings. 4. No pulmonary emboli. Head CT 12/15/19 00:00 IMPRESSION: No acute intracranial process. Mild microvascular ischemia. Ventricular enlargement out of proportion to U gyral atrophy suggests possible normal pressure hydrocephalus. EVIDENCE OF ACUTE STROKE: NO. KUB X-Ray 12/22/19 08:45 IMPRESSION: Esophagogastric tube tip is below the diaphragm likely within the fundus of the stomach. Thoracentesis Ultrasound 12/23/19 00:00 IMPRESSION: SUCCESSFUL THORACENTESIS WITH CHEST TUBE PLACEMENT USING ULTRASOUND GUIDANCE. Chest X-Ray 12/26/19 08:47 IMPRESSION: STABLE APPEARANCE OF THE CHEST. Assessment and Plan - Diagnosis (1) Multifocal pneumonia Is this a current diagnosis for this admission?: Yes Plan: . Completed his antibiotic course, (2) Chest tube in place Is this a current diagnosis for this admission?: Yes Plan: We will follow serial chest x-ray. Patient apparently still had about 750ml of of fluid out of his chest tube over the last 24 hours. His x-rays suggest that is effusion especially on the right side has resolved. Will continue to monitor his output. Fluid culture was negative and this may well be a parapneumonic effusion. Unfortunately I do not see the fluid analysis to review (3) Acute metabolic encephalopathy Is this a current diagnosis for this admission?: Yes Plan: Head CT that was done on admission did show ventricular enlargement the suggest possible normal pressure hydrocephalus. 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 I decreased it to 50 mg every 12 today. This should continue to be tapered. This obviously could also be contributing to patient's confusion (6) Sepsis Qualifiers: Sepsis type: sepsis due to unspecified organism Sepsis acute organ dysfunction status: with acute organ dysfunction Severe sepsis acute organ dysfunction type: acute renal failure Acute renal failure type: unspecified Severe sepsis shock status: unspecified Qualified Code(s): A41.9 - Sepsis, unspecified organism; R65.20 - Severe sepsis without septic shock; N17.9 - Acute kidney failure, unspecified Is this a current diagnosis for this admission?: Yes Plan: Resolved (7) UTI (urinary tract infection) Qualifiers: Urinary tract infection type: site unspecified Hematuria presence: without hematuria Qualified Code(s): N39.0 - Urinary tract infection, site not specified Is this a current diagnosis for this admission?: Yes Plan: Resolved, patricia out. (8) Acute and chronic respiratory failure Qualifiers: Respiratory failure complication: hypoxia Qualified Code(s): J96.21 - Acute and chronic respiratory failure with hypoxia Is this a current diagnosis for this admission?: Yes (9) Encephalopathy acute Is this a current diagnosis for this admission?: Yes - Plan Summary Summary: Multifocal pneumonia, COVID 19-negative COPD Diabetic encephalopathy Sepsis UTI secondary to E. coli and Klebsiella, completed treatment Hypoadrenalism History of lung cancer status post lobectomy and chemotherapy and radiation therapy Acute on chronic respiratory failure
[2019-12-26] MEDS: DOCUSATE SODIUM 100 MG CAPSULE PO SCH (17:15)
[2019-12-26] MEDS: CHLORPROMAZINE HCL INJ 25 MG/1 ML AMPULE IV PRN (19:57)
[2019-12-26] MEDS: ATORVASTATIN CALCIUM 80 MG TABLET PO SCH (21:20)
[2019-12-27] MEDS: IPRATROPIUM/ALBUTEROL 0.5-2.5 MG/3 ML AMPUL NEB SCH ×4 (02:40→20:11)
[2019-12-27] MEDS: CHLORPROMAZINE HCL INJ 25 MG/1 ML AMPULE IV PRN ×2 (04:00→18:59)
[2019-12-27] MEDS: HYDROCORTISONE SOD SUCCINATE INJ/PF 100 MG/2 ML SDV IV SCH ×2 (05:24→17:17)
[2019-12-27] MEDS: PANTOPRAZOLE SODIUM 40 MG TABLET.DR PO SCH (05:24)
[2019-12-27] MEDS: POTASSI CL 20 MEQ/D5-1/2NS 1L 1,000 ML IV PRN (05:38)
[2019-12-27] MEDS: UMECLIDINIUM BROMIDE 62.5 MCG/DOSE IH SCH (09:57)
[2019-12-27] MEDS: DOCUSATE SODIUM 100 MG CAPSULE PO SCH ×2 (09:58→17:17)
[2019-12-27] MEDS: NYSTATIN/DEXAMETH/DIPHEN SUSP 120 ML PO SCH ×4 (09:58→22:03)
[2019-12-27] MEDS: ASPIRIN 81 MG TABLET, CHEWABLE PO SCH (09:58)
[2019-12-27] MEDS: MULTIVITAMIN TABLET PO SCH (09:58)
[2019-12-27] MEDS: CLOPIDOGREL BISULFATE 75 MG TABLET PO SCH (09:58)
[2019-12-27] MEDS: POTASSIUM CHLORIDE 10 MEQ TABLET.ER PO SCH (09:58)
[2019-12-27] MEDS: OXYCODONE HCL IR 5 MG TABLET PO PRN (09:58)
[2019-12-27] MEDS: FERROUS SULFATE LIQUID 300 MG/5 ML UDC PO SCH (10:03)
--- NOTE | 2019-12-27 11:53 | RADIOLOGY REPORT (SQ) ---
EXAM DESCRIPTION: CHEST SINGLE VIEW IMAGES COMPLETED DATE/TIME: 12/27/2019 11:45 am REASON FOR STUDY: Chest Tube in place COMPARISON: 12/26/2019 NUMBER OF VIEWS: One view. TECHNIQUE: Single frontal radiographic image of the chest acquired. LIMITATIONS: None. FINDINGS: LUNGS AND PLEURA: Stable appearance. Small bore right-sided chest tube remains in place. MEDIASTINUM AND HILAR STRUCTURES: Stable heart size and mediastinal structures. HEART AND VASCULAR STRUCTURES: Stable appearance. BONES: No acute findings. HARDWARE: None in the chest. OTHER: No other significant finding. IMPRESSION: STABLE APPEARANCE OF THE CHEST. TECHNICAL DOCUMENTATION: JOB ID: [id number] 2010 [employer] All Rights Reserved Reading location - IP/workstation name: [email or web address]
--- NOTE | 2019-12-27 18:59 | RADIOLOGY REPORT (SQ) ---
EXAM DESCRIPTION: CHEST SINGLE VIEW IMAGES COMPLETED DATE/TIME: 12/27/2019 6:45 pm REASON FOR STUDY: Worsening sob, poss. chest tube displacement COMPARISON: 12/27/2019 EXAM PARAMETERS: NUMBER OF VIEWS: One view. TECHNIQUE: Single frontal radiographic view of the chest acquired. RADIATION DOSE: NA LIMITATIONS: None. FINDINGS: LUNGS AND PLEURA: No pneumothorax status post chest tube manipulation on the right. Dense retrocardiac opacification on the left. MEDIASTINUM AND HILAR STRUCTURES: No masses. Contour normal. HEART AND VASCULAR STRUCTURES: Heart size is borderline. No pulmonary edema. BONES: No acute findings. HARDWARE: Surgical clips. Pigtail catheter in the right hemithorax. Heart valve. OTHER: No other significant finding. IMPRESSION: No pneumothorax. Likely left lower lobe atelectasis. TECHNICAL DOCUMENTATION: JOB ID: [id number] 12/27/20192010 [employer]- All Rights Reserved Reading location - IP/workstation name: [email or web address]
[2019-12-27] MEDS ORDERED: FUROSEMIDE INJ/PF 40 MG/4 ML SDV IV ONE (19:27)
--- NOTE | 2019-12-27 19:36 | PDOC PROGRESS REPORT ---
Subjective Progress Note for:: 12/27/19 Subjective:: Patient had some shortness of breath today. He was getting agitated this afternoon. Placed on BiPAP on comfortable at this time. Reason For Visit: ARF SEPSIS UTI Physical Exam Vital Signs: Temp Pulse Resp BP Pulse Ox 97.6 F 91 19 148/84 H 94 12/27/19 13:29 12/27/19 14:00 12/27/19 14:00 12/27/19 13:29 12/27/19 14:00 Intake & Output 12/26/19 12/27/19 12/28/19 06:59 06:59 06:59 Intake Total 1801 3085 1252 Output Total 1595 590 Balance 206 2495 1252 Weight 96.2 kg 95.9 kg 95.9 kg General appearance: PRESENT: no acute distress, cooperative Neck exam: ABSENT: JVD Respiratory exam: PRESENT: crackles, symmetrical, unlabored. ABSENT: tachypnea, wheezes Cardiovascular exam: PRESENT: RRR, +S1, +S2. ABSENT: tachycardia GI/Abdominal exam: PRESENT: soft. ABSENT: rebound, rigid, tenderness Neurological exam: PRESENT: alert, awake, oriented to person, oriented to place, oriented to time Results Laboratory Results: 12/26/19 04:45 12/26/19 04:45 12/23/19 11:45 Pleural Fluid Gram Stain - Final 12/23/19 11:45 Pleural Fluid Body Fluid Culture - Final NO AEROBIC OR ANAEROBIC ORGANISMS RECOVERED 12/13/19 12/13/19 12/13/19 15:28 15:28 19:20 Troponin I 0.092 0.075 NT-Pro-B Natriuret Pep 4360 H 12/16/19 04:39 Troponin I NT-Pro-B Natriuret Pep 7380 H Impressions: Chest/Abdomen CTA 12/15/19 00:00 IMPRESSION: 1. Slight increase in size of the right pleural effusion. 2. Development of a small left effusion since prior study. 3. No significant interval change in lung findings. 4. No pulmonary emboli. Head CT 12/15/19 00:00 IMPRESSION: No acute intracranial process. Mild microvascular ischemia. Ventricular enlargement out of proportion to U gyral atrophy suggests possible normal pressure hydrocephalus. EVIDENCE OF ACUTE STROKE: NO. KUB X-Ray 12/22/19 08:45 IMPRESSION: Esophagogastric tube tip is below the diaphragm likely within the fundus of the stomach. Thoracentesis Ultrasound 12/23/19 00:00 IMPRESSION: SUCCESSFUL THORACENTESIS WITH CHEST TUBE PLACEMENT USING ULTRASOUND GUIDANCE. Chest X-Ray 12/27/19 18:09 IMPRESSION: No pneumothorax. Likely left lower lobe atelectasis. Assessment and Plan - Diagnosis (1) Pleural effusion Is this a current diagnosis for this admission?: Yes (2) Acute and chronic respiratory failure Qualifiers: Respiratory failure complication: hypoxia Qualified Code(s): J96.21 - Acute and chronic respiratory failure with hypoxia Is this a current diagnosis for this admission?: Yes (3) Acute renal failure Is this a current diagnosis for this admission?: Yes (4) COPD (chronic obstructive pulmonary disease) Qualifiers: COPD type: emphysema Emphysema type: centrilobular Qualified Code(s): J43.2 - Centrilobular emphysema Is this a current diagnosis for this admission?: Yes (5) Encephalopathy acute Is this a current diagnosis for this admission?: Yes (6) Multifocal pneumonia Is this a current diagnosis for this admission?: Yes - Plan Summary Summary: Multifocal pneumonia, COVID 19-negative COPD Diabetic encephalopathy Sepsis UTI secondary to E. coli and Klebsiella, completed treatment Hypoadrenalism History of lung cancer status post lobectomy and chemotherapy and radiation therapy Acute on chronic respiratory failure 12/27/[address] in right lung for drainage of a large pleural effusion. Pleural effusion seems to have improved. Did have some worsening of his hypoxic respiratory failure this evening and will be giving Lasix as chest x-ray does show a little bit of pulmonary edema Placed on BiPAP for tonight noted negative covid 19 Has completed antibiotics for treatment of pneumonia We will check pleural effusion fluid analysis as this was never done. - Time Time Spent with patient: 15-24 minutes
[2019-12-27] MEDS ORDERED: FUROSEMIDE INJ/PF 100 MG/10 ML SDV IV ONE (19:45)
[2019-12-27 19:56] LABS: FLUID TYPE PLEURAL
[2019-12-27 19:57] LABS: FLUID APPEARANCE SLIGHTLY HAZY; FLUID COLOR YELLOW; FLUID VISCOSITY SLIGHTLY VISCOUS
[2019-12-27 20:03] LABS: FLUID SOURCE LUNG
[2019-12-27] MEDS ORDERED: LABETALOL HCL INJ 20 MG/4 ML DISP.SYRIN IV PRN (20:45)
[2019-12-27] MEDS: ATORVASTATIN CALCIUM 80 MG TABLET PO SCH (22:03)
[2019-12-28] MEDS: IPRATROPIUM/ALBUTEROL 0.5-2.5 MG/3 ML AMPUL NEB SCH ×3 (03:04→16:10)
[2019-12-28] MEDS: CHLORPROMAZINE HCL INJ 25 MG/1 ML AMPULE IV PRN (03:39)
[2019-12-28] MEDS: HYDROCORTISONE SOD SUCCINATE INJ/PF 100 MG/2 ML SDV IV SCH ×2 (05:10→18:44)
[2019-12-28] MEDS: PANTOPRAZOLE SODIUM 40 MG TABLET.DR PO SCH (05:11)
--- NOTE | 2019-12-28 06:04 | RADIOLOGY REPORT (SQ) ---
EXAM DESCRIPTION: XR CHEST 1 VIEW COMPLETED DATE/TME: 12/28/2019 04:56 CLINICAL HISTORY: 79 years Male, decreased chest tube output, increased SOB COMPARISON: One day prior. NUMBER OF VIEWS/TECHNIQUE: 1/AP FINDINGS: Moderate right perihilar opacity, small streaky patchy opacity of the left lower lobe, pulmonary vascular congestion, small streaky opacity right lower lung field. Right lower chest tube. Bilateral hemithoracic clips.Cardiac/mediastinal hardware/clips. Normal cardiac silhouette size. No pneumothorax. Stable bony thorax. IMPRESSION: No significant change.
--- NOTE | 2019-12-28 09:41 | RADIOLOGY REPORT (SQ) ---
EXAM DESCRIPTION: CHEST SINGLE VIEW IMAGES COMPLETED DATE/TIME: 12/28/2019 9:28 am REASON FOR STUDY: s/p chest tube removal COMPARISON: Earlier the same day. EXAM PARAMETERS: NUMBER OF VIEWS: One view. TECHNIQUE: Single frontal radiographic view of the chest acquired. RADIATION DOSE: NA LIMITATIONS: None. FINDINGS: LUNGS AND PLEURA: Small bore right-sided chest tube is been removed. No pneumothorax. Pe rsistent basilar airspace disease. MEDIASTINUM AND HILAR STRUCTURES: Stable fullness in the right hilum. HEART AND VASCULAR STRUCTURES: Unchanged. BONES: No acute findings. HARDWARE: None in the chest. OTHER: No other significant finding. IMPRESSION: No pneumothorax following right-sided chest tube removal. TECHNICAL DOCUMENTATION: JOB ID: [id number] 2010 [employer]- All Rights Reserved Reading location - IP/workstation name: [email or web address]
[2019-12-28] MEDS: DOCUSATE SODIUM 100 MG CAPSULE PO SCH ×2 (10:14→18:53)
[2019-12-28] MEDS: NYSTATIN/DEXAMETH/DIPHEN SUSP 120 ML PO SCH ×4 (10:14→21:12)
[2019-12-28] MEDS: FERROUS SULFATE LIQUID 300 MG/5 ML UDC PO SCH (10:16)
[2019-12-28] MEDS: ASPIRIN 81 MG TABLET, CHEWABLE PO SCH (10:16)
[2019-12-28] MEDS: OXYCODONE HCL IR 5 MG TABLET PO PRN ×2 (10:16→19:52)
[2019-12-28] MEDS: CLOPIDOGREL BISULFATE 75 MG TABLET PO SCH (10:17)
[2019-12-28] MEDS: MULTIVITAMIN TABLET PO SCH ×2 (10:17→12:52)
[2019-12-28] MEDS: POTASSIUM CHLORIDE 10 MEQ TABLET.ER PO SCH (10:17)
[2019-12-28] MEDS: UMECLIDINIUM BROMIDE 62.5 MCG/DOSE IH SCH (10:24)
--- NOTE | 2019-12-28 11:03 | PDOC PROGRESS REPORT ---
Subjective Progress Note for:: 12/28/19 Subjective:: Patient is breathing better today. Became agitated last night requiring restraints. Also became increasingly hypoxic yesterday was given Lasix 60 mg IV once. Currently denies any shortness of breath or chest pain. Denies any pain anywhere. Reason For Visit: ARF SEPSIS UTI Physical Exam Vital Signs: Temp Pulse Resp BP Pulse Ox 98.0 F 70 8 L 117/48 L 94 12/28/19 07:21 12/28/19 08:06 12/28/19 08:16 12/28/19 07:21 12/28/19 08:16 Intake & Output 12/27/19 12/28/19 12/29/19 06:59 06:59 06:59 Intake Total 3085 1252 Output Total 590 225 Balance 2495 1027 Weight 95.9 kg 93.1 kg General appearance: PRESENT: no acute distress, cooperative Neck exam: ABSENT: JVD Respiratory exam: PRESENT: clear to auscultation donal, unlabored. ABSENT: tachypnea, wheezes Cardiovascular exam: PRESENT: RRR, +S1, +S2. ABSENT: tachycardia GI/Abdominal exam: PRESENT: soft. ABSENT: rebound, rigid, tenderness Neurological exam: PRESENT: alert, awake Psychiatric exam: PRESENT: agitated Results Laboratory Results: 12/26/19 04:45 12/26/19 04:45 12/27/19 12/27/19 17:49 20:43 Total Protein 5.3 L Fluid Type PLEURAL Fluid Source LUNG Fluid Color YELLOW Fluid Appearance SLIGHTLY HAZY Fluid Viscosity SLIGHTLY VISCOUS Fluid WBC 79 Fluid RBC 420 12/23/19 11:45 Pleural Fluid Gram Stain - Final 12/23/19 11:45 Pleural Fluid Body Fluid Culture - Final NO AEROBIC OR ANAEROBIC ORGANISMS RECOVERED 12/13/19 12/13/19 12/13/19 15:28 15:28 19:20 Troponin I 0.092 0.075 NT-Pro-B Natriuret Pep 4360 H 12/16/19 04:39 Troponin I NT-Pro-B Natriuret Pep 7380 H Impressions: Chest/Abdomen CTA 12/15/19 00:00 IMPRESSION: 1. Slight increase in size of the right pleural effusion. 2. Development of a small left effusion since prior study. 3. No significant interval change in lung findings. 4. No pulmonary emboli. Head CT 12/15/19 00:00 IMPRESSION: No acute intracranial process. Mild microvascular ischemia. Ventricular enlargement out of proportion to U gyral atrophy suggests possible normal pressure hydrocephalus. EVIDENCE OF ACUTE STROKE: NO. KUB X-Ray 12/22/19 08:45 IMPRESSION: Esophagogastric tube tip is below the diaphragm likely within the fundus of the stomach. Thoracentesis Ultrasound 12/23/19 00:00 IMPRESSION: SUCCESSFUL THORACENTESIS WITH CHEST TUBE PLACEMENT USING ULTRASOUND GUIDANCE. Assessment and Plan - Diagnosis (1) Pleural effusion Is this a current diagnosis for this admission?: Yes Plan: Large right-sided pleural effusion seems to have resolved on repeat chest x-ray. Also no drainage and chest tube yesterday and today. We will go ahead and have radiology remove chest tube. Fluid analysis not yet fully back but evaluation of cell count is unlikely for empyema. We will follow-up fluid analysis when results. (2) Acute and chronic respiratory failure Qualifiers: Respiratory failure complication: hypoxia Qualified Code(s): J96.21 - Acute and chronic respiratory failure with hypoxia Is this a current diagnosis for this admission?: Yes Plan: Patient's acute respiratory failure seems to have been triggered by his large pleural effusion-this component is now resolved. Patient, per documentation, does have chronic hypoxic respiratory failure from his COPD and uses 2 L nasal cannula at home. Will discontinue BiPAP today and place patient on nasal cannula. (3) Acute renal failure Is this a current diagnosis for this admission?: Yes Plan: Resolved (4) COPD (chronic obstructive pulmonary disease) Qualifiers: COPD type: emphysema Emphysema type: centrilobular Qualified Code(s): J43.2 - Centrilobular emphysema Is this a current diagnosis for this admission?: Yes Plan: Stable. Nebs as needed. (5) Encephalopathy acute Is this a current diagnosis for this admission?: Yes Plan: Acute metabolic encephalopathy likely secondary to acute illness with a complaint of delirium. Also will see if any improvement with weaning hydrocortisone. (6) Multifocal pneumonia Is this a current diagnosis for this admission?: Yes Plan: . Completed his antibiotic course, COVID-19 negative. (7) Sepsis Qualifiers: Sepsis type: sepsis due to unspecified organism Sepsis acute organ dysfunction status: with acute organ dysfunction Severe sepsis acute organ dysfunction type: acute renal failure Acute renal failure type: unspecified Severe sepsis shock status: unspecified Qualified Code(s): A41.9 - Sepsis, unspecified organism; R65.20 - Severe sepsis without septic shock; N17.9 - Acute kidney failure, unspecified Is this a current diagnosis for this admission?: Yes Plan: Resolved. Currently weaning stress dose hydrocortisone which was started in the ICU for suspected hypoadrenalism. Will reduce dose to 20 mg every 12 today. - Time Time Spent with patient: 15-24 minutes
[2019-12-28 12:43] LABS: BLOOD UREA NITROGEN 26 mg/dL (7-20); CARBON DIOXIDE 35 mmol/L (22-30); CHLORIDE 102 mmol/L (98-107); GLUCOSE 138 mg/dL (75-110); POTASSIUM 4.3 mmol/L (3.6-5.0)
[2019-12-28 12:58] LABS: ANION GAP 1 (5-19)
--- NOTE | 2019-12-28 13:36 | RADIOLOGY REPORT (SQ) ---
EXAM DESCRIPTION: CHEST SINGLE VIEW IMAGES COMPLETED DATE/TIME: 12/28/2019 1:27 pm REASON FOR STUDY: 2hrs post CT removal COMPARISON: None. NUMBER OF VIEWS: One view. TECHNIQUE: Single frontal radiographic image of the chest acquired. LIMITATIONS: None. FINDINGS: LUNGS AND PLEURA: Stable appearance. MEDIASTINUM AND HILAR STRUCTURES: Stable heart size and mediastinal structures. HEART AND VASCULAR STRUCTURES: Stable appearance. BONES: No acute findings. HARDWARE: None in the chest. OTHER: No other significant finding. IMPRESSION: No pneumothorax 2 hours following right-sided chest tube removal. No other interval ashu nge. TECHNICAL DOCUMENTATION: JOB ID: [id number] 2010 [employer]- All Rights Reserved Reading location - IP/workstation name: [email or web address]
[2019-12-28] MEDS: ATORVASTATIN CALCIUM 80 MG TABLET PO SCH (21:11)
[2019-12-28] MEDS ORDERED: QUETIAPINE FUMARATE 25 MG TABLET PO SCH (22:00)
[2019-12-29] MEDS: PANTOPRAZOLE SODIUM 40 MG TABLET.DR PO SCH (05:22)
[2019-12-29] MEDS: HYDROCORTISONE SOD SUCCINATE INJ/PF 100 MG/2 ML SDV IV SCH ×2 (05:27→18:48)
[2019-12-29] MEDS: IPRATROPIUM/ALBUTEROL 0.5-2.5 MG/3 ML AMPUL NEB SCH ×2 (08:05→16:27)
[2019-12-29] MEDS ORDERED: FUROSEMIDE INJ/PF 40 MG/4 ML SDV IV ONE (09:00)
[2019-12-29] MEDS: FERROUS SULFATE LIQUID 300 MG/5 ML UDC PO SCH (09:18)
[2019-12-29] MEDS: CLOPIDOGREL BISULFATE 75 MG TABLET PO SCH (09:19)
[2019-12-29] MEDS: UMECLIDINIUM BROMIDE 62.5 MCG/DOSE IH SCH (09:19)
[2019-12-29] MEDS: DOCUSATE SODIUM 100 MG CAPSULE PO SCH ×2 (09:19→18:48)
[2019-12-29] MEDS: ASPIRIN 81 MG TABLET, CHEWABLE PO SCH (09:19)
[2019-12-29] MEDS: POTASSIUM CHLORIDE 10 MEQ TABLET.ER PO SCH (09:19)
[2019-12-29] MEDS: MULTIVITAMIN TABLET PO SCH (09:19)
[2019-12-29] MEDS: NYSTATIN/DEXAMETH/DIPHEN SUSP 120 ML PO SCH ×4 (09:27→22:00)
[2019-12-29] MEDS ORDERED: FLUTICASONE/VILANTEROL 200-25 MCG/DOSE IH ONE (13:39)
--- NOTE | 2019-12-29 14:24 | PDOC PROGRESS REPORT ---
Subjective Progress Note for:: 12/29/19 Subjective:: Patient still quite confused today. He is awake and fully alert however. Denies any shortness of breath. Oxygen weaned down today to 3 L nasal cannula which is around patient's baseline of 2 to 3 L at home. Reason For Visit: ARF SEPSIS UTI Physical Exam Vital Signs: Temp Pulse Resp BP Pulse Ox 98.0 F 73 19 116/52 L 98 12/29/19 12:33 12/29/19 12:33 12/29/19 12:33 12/29/19 12:33 12/29/19 12:33 Intake & Output 12/28/19 12/29/19 12/30/19 06:59 06:59 06:59 Intake Total 1252 236 Output Total 225 Balance 1027 236 Weight 93.1 kg 97.8 kg General appearance: PRESENT: no acute distress, cooperative, hard of hearing, obese Neck exam: ABSENT: JVD Respiratory exam: PRESENT: crackles, symmetrical, unlabored, wheezes. ABSENT: tachypnea Cardiovascular exam: PRESENT: RRR, +S1, +S2. ABSENT: tachycardia GI/Abdominal exam: PRESENT: normal bowel sounds, soft. ABSENT: rebound, rigid, tenderness Neurological exam: PRESENT: alert, awake Results Laboratory Results: 12/26/19 04:45 12/28/19 12:19 12/27/19 12/27/19 12/27/19 17:49 17:49 17:49 Fluid Glucose 148 Fluid Total Protein 0.9 Fluid LDH 122 12/13/19 12/13/19 12/13/19 15:28 15:28 19:20 Troponin I 0.092 0.075 NT-Pro-B Natriuret Pep 4360 H 12/16/19 04:39 Troponin I NT-Pro-B Natriuret Pep 7380 H Impressions: Chest/Abdomen CTA 12/15/19 00:00 IMPRESSION: 1. Slight increase in size of the right pleural effusion. 2. Development of a small left effusion since prior study. 3. No significant interval change in lung findings. 4. No pulmonary emboli. Head CT 12/15/19 00:00 IMPRESSION: No acute intracranial process. Mild microvascular ischemia. Ventricular enlargement out of proportion to U gyral atrophy suggests possible normal pressure hydrocephalus. EVIDENCE OF ACUTE STROKE: NO. KUB X-Ray 12/22/19 08:45 IMPRESSION: Esophagogastric tube tip is below the diaphragm likely within the fundus of the stomach. Thoracentesis Ultrasound 12/23/19 00:00 IMPRESSION: SUCCESSFUL THORACENTESIS WITH CHEST TUBE PLACEMENT USING ULTRASOUND GUIDANCE. Chest X-Ray 12/28/19 12:47 IMPRESSION: No pneumothorax 2 hours following right-sided chest tube removal. No other interval change. Assessment and Plan - Diagnosis (1) Pleural effusion Is this a current diagnosis for this admission?: Yes Plan: Large right-sided pleural effusion seems to have resolved on repeat chest x-ray. 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 Patient, per documentation, does have chronic hypoxic respiratory failure from his COPD and uses 2 L nasal cannula at home. Weaned oxygen to 3lnc today. (3) COPD (chronic obstructive pulmonary disease) Qualifiers: COPD type: emphysema Emphysema type: centrilobular Qualified Code(s): J43.2 - Centrilobular emphysema Is this a current diagnosis for this admission?: Yes Plan: Stable. Nebs as needed. LABA/LAMA/ICS. Seems to have some chronic hypercapnic respiratory failure secondary to underlying COPD. (4) Encephalopathy acute Is this a current diagnosis for this admission?: Yes Plan: Acute metabolic encephalopathy likely secondary to acute illness with a component of delirium. Also will see if any improvement with weaning hydrocortisone. Will place on trazodone as well for improvement of sleep. (5) Lung cancer Qualifiers: Laterality: unspecified laterality Lung location: unspecified part of lung Qualified Code(s): C34.90 - Malignant neoplasm of unspecified part of unspecified bronchus or lung Is this a current diagnosis for this admission?: Yes Plan: Has history of involving the right and left lung. Discussed with patient's oncologist Dr. 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 Was on Opdivo and did have point radiation. Currently Dr. Ramirez is planning on holding off on any further therapy until patient has had improvement in functional status and back at home. (6) Acute renal failure Is this a current diagnosis for this admission?: Yes Plan: Resolved (7) Multifocal pneumonia Is this a current diagnosis for this admission?: Yes Plan: . Completed his antibiotic course, COVID-19 negative. (8) Sepsis Qualifiers: Sepsis type: sepsis due to unspecified organism Sepsis acute organ dysfunction status: with acute organ dysfunction Severe sepsis acute organ dysfunction type: acute renal failure Acute renal failure type: unspecified Severe sepsis shock status: unspecified Qualified Code(s): A41.9 - Sepsis, unspecified organism; R65.20 - Severe sepsis without septic shock; N17.9 - Acute kidney failure, unspecified Is this a current diagnosis for this admission?: Yes - Time Time Spent with patient: 15-24 minutes
[2019-12-29] MEDS: TRAZODONE HCL 50 MG TABLET PO SCH (21:58)
[2019-12-29] MEDS: OXYCODONE HCL IR 5 MG TABLET PO PRN (21:59)
[2019-12-29] MEDS: ATORVASTATIN CALCIUM 80 MG TABLET PO SCH (21:59)
[2019-12-29] MEDS ORDERED: TRAZODONE HCL 50 MG TABLET PO SCH (22:00)
[2019-12-30] MEDS: HYDROCORTISONE SOD SUCCINATE INJ/PF 100 MG/2 ML SDV IV SCH (06:14)
[2019-12-30] MEDS: PANTOPRAZOLE SODIUM 40 MG TABLET.DR PO SCH (06:16)
[2019-12-30] MEDS: IPRATROPIUM/ALBUTEROL 0.5-2.5 MG/3 ML AMPUL NEB SCH ×2 (08:06→16:06)
[2019-12-30] MEDS: ASPIRIN 81 MG TABLET, CHEWABLE PO SCH (09:12)
[2019-12-30] MEDS: DOCUSATE SODIUM 100 MG CAPSULE PO SCH ×2 (09:13→17:21)
[2019-12-30] MEDS: POTASSIUM CHLORIDE 10 MEQ TABLET.ER PO SCH (09:13)
[2019-12-30] MEDS: FERROUS SULFATE 325 MG TABLET PO SCH (09:13)
[2019-12-30] MEDS: NYSTATIN/DEXAMETH/DIPHEN SUSP 120 ML PO SCH ×4 (09:14→22:29)
[2019-12-30] MEDS: CLOPIDOGREL BISULFATE 75 MG TABLET PO SCH (09:14)
[2019-12-30] MEDS: MULTIVITAMIN TABLET PO SCH (09:14)
[2019-12-30 10:00] LABS: HEMATOCRIT 28.8 % (37.9-51.0); HEMOGLOBIN 9.8 g/dL (13.5-17.0); MEAN CORPUSCULAR HEMOGLOBIN 32.1 pg (27.0-33.4); MEAN CORPUSCULAR VOLUME 95 fl (80-97); PLATELET COUNT 169 10^3/uL (150-450); RED BLOOD COUNT 3.05 10^6/uL (4.35-5.55); RED CELL DISTRIBUTION WIDTH 16.5 % (11.5-14.0); WHITE BLOOD COUNT 9.2 10^3/uL (4.0-10.5)
[2019-12-30] MEDS ORDERED: FUROSEMIDE 40 MG TABLET PO SCH (10:00)
[2019-12-30 10:43] LABS: BLOOD UREA NITROGEN 21 mg/dL (7-20); CALCIUM 8.2 mg/dL (8.4-10.2); CARBON DIOXIDE 35 mmol/L (22-30); CHLORIDE 100 mmol/L (98-107); GLUCOSE 99 mg/dL (75-110); POTASSIUM 4.2 mmol/L (3.6-5.0)
[2019-12-30 10:46] LABS: ANION GAP 1 (5-19)
[2019-12-30] MEDS: FLUTICASONE/VILANTEROL 200-25 MCG/DOSE IH SCH (12:22)
[2019-12-30] MEDS: UMECLIDINIUM BROMIDE 62.5 MCG/DOSE IH SCH (12:25)
[2019-12-30] MEDS: FUROSEMIDE INJ/PF 40 MG/4 ML SDV IV SCH (12:51)
[2019-12-30] MEDS ORDERED: HALOPERIDOL LACTATE INJ 5 MG/1 ML VIAL IM PRN (13:29)
--- NOTE | 2019-12-30 13:40 | PDOC PROGRESS REPORT ---
Subjective Progress Note for:: 12/30/19 Subjective:: Patient got agitated yesterday breaking hospital equipment and hitting people and was needed to be placed back on restraints. Patient will fall in restraints at time of encounter. Otherwise patient continues to be mouthing off using curse words occasionally. He denies any shortness of breath, chest pain, nausea vomiting. Discussed with patient about having to improve his behavior before being taken off restraints. He understands and states he will try. Apparently patient does have similar history of agitation after talking with other staff members including patient's oncologist. Reason For Visit: ARF SEPSIS UTI Physical Exam Vital Signs: Temp Pulse Resp BP Pulse Ox 98.0 F 72 19 159/64 H 97 12/30/19 11:38 12/30/19 11:38 12/30/19 11:38 12/30/19 11:38 12/30/19 08:08 Intake & Output 12/29/19 12/30/19 12/31/19 06:59 06:59 06:59 Intake Total 236 1076 236 Balance 236 1076 236 Weight 97.8 kg 87.8 kg General appearance: PRESENT: no acute distress, well-nourished. ABSENT: hard of hearing, thin Neck exam: ABSENT: JVD Respiratory exam: PRESENT: crackles, unlabored. ABSENT: tachypnea, wheezes Cardiovascular exam: PRESENT: RRR, +S1, +S2. ABSENT: tachycardia GI/Abdominal exam: PRESENT: soft. ABSENT: rebound, rigid, tenderness Neurological exam: PRESENT: alert, awake, oriented to person, oriented to place, oriented to time Results Laboratory Results: 12/30/19 09:27 12/30/19 09:27 12/30/19 12/30/19 09:27 09:27 WBC 9.2 RBC 3.05 L Hgb 9.8 L Hct 28.8 L MCV 95 MCH 32.1 MCHC 34.0 RDW 16.5 H Plt Count 169 Sodium 135.7 L Potassium 4.2 Chloride 100 Carbon Dioxide 35 H Anion Gap 1 L BUN 21 H Creatinine 0.71 Est GFR ( Amer) > 60 Glucose 99 Calcium 8.2 L Magnesium 2.2 12/13/19 12/13/19 12/13/19 15:28 15:28 19:20 Troponin I 0.092 0.075 NT-Pro-B Natriuret Pep 4360 H 12/16/19 04:39 Troponin I NT-Pro-B Natriuret Pep 7380 H Impressions: Chest/Abdomen CTA 12/15/19 00:00 IMPRESSION: 1. Slight increase in size of the right pleural effusion. 2. Development of a small left effusion since prior study. 3. No significant interval change in lung findings. 4. No pulmonary emboli. Head CT 12/15/19 00:00 IMPRESSION: No acute intracranial process. Mild microvascular ischemia. Ventricular enlargement out of proportion to U gyral atrophy suggests possible normal pressure hydrocephalus. EVIDENCE OF ACUTE STROKE: NO. KUB X-Ray 12/22/19 08:45 IMPRESSION: Esophagogastric tube tip is below the diaphragm likely within the fundus of the stomach. Thoracentesis Ultrasound 12/23/19 00:00 IMPRESSION: SUCCESSFUL THORACENTESIS WITH CHEST TUBE PLACEMENT USING ULTRASOUND GUIDANCE. Chest X-Ray 12/28/19 12:47 IMPRESSION: No pneumothorax 2 hours following right-sided chest tube removal. No other interval change. Assessment and Plan - Diagnosis (1) Pleural effusion Is this a current diagnosis for this admission?: Yes Plan: Large right-sided pleural effusion seems to have resolved on repeat chest x-ray. 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 Will keep patient on Lasix given rales on exam (2) Acute and chronic respiratory failure Qualifiers: Respiratory failure complication: hypoxia Qualified Code(s): J96.21 - Acute and chronic respiratory failure with hypoxia Is this a current diagnosis for this admission?: Yes Plan: Patient's acute respiratory failure seems to have been triggered by his large p leural effusion-this component is now resolved. Patient, per documentation, does have chronic hypoxic respiratory failure from his COPD and uses 2 L nasal cannula at home. Weaned oxygen to 2lnc today. (3) COPD (chronic obstructive pulmonary disease) Qualifiers: COPD type: emphysema Emphysema type: centrilobular Qualified Code(s): J43.2 - Centrilobular emphysema Is this a current diagnosis for this admission?: Yes Plan: Stable. Nebs as needed. LABA/LAMA/ICS. Seems to have some chronic hypercapnic respiratory failure secondary to underlying COPD. Discharge planning involved with ensuring patient has his oxygen at home. Seems to be the patient also has CPAP machine at home. (4) Encephalopathy acute Is this a current diagnosis for this admission?: Yes Plan: Acute metabolic encephalopathy likely secondary to acute illness with a component of delirium. At this point, I am starting to believe that patient's agitated and aggressive behaviors are likely secondary to patient's personality rather than other causes. His somnolence and confusion has resolved and patient is wide awake and causing problems for staff. Currently on restraints. Will wean restraints if patient behavior improved. Haldol as needed (5) Lung cancer Qualifiers: Laterality: unspecified laterality Lung location: unspecified part of lung Qualified Code(s): C34.90 - Malignant neoplasm of unspecified part of unspecified bronchus or lung Is this a current diagnosis for this admission?: Yes Plan: Has history of involving the right and left lung. Discussed with patient's oncologist Dr. 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 Was on Opdivo and did have point radiation. Currently Dr. Ramirez is planning on holding off on any further therapy until patient has had improvement in functional status and back at home. (6) Acute renal failure Is this a current diagnosis for this admission?: Yes Plan: Resolved (7) Multifocal pneumonia Is this a current diagnosis for this admission?: Yes Plan: . Completed his antibiotic course, COVID-19 negative. (8) Sepsis Qualifiers: Sepsis type: sepsis due to unspecified organism Sepsis acute organ dysfunction status: with acute organ dysfunction Severe sepsis acute organ dysfunction type: acute renal failure Acute renal failure type: unspecified Severe sepsis shock status: unspecified Qualified Code(s): A41.9 - Sepsis, unspecified organism; R65.20 - Severe sepsis without septic shock; N17.9 - Acute kidney failure, unspecified Is this a current diagnosis for this admission?: Yes Plan: Resolved. Currently weaned off stress hydrocortisone which was started in the ICU. Received 10 mg this morning but discontinued subsequently. - Time Time Spent with patient: Less than 15 minutes
[2019-12-30] MEDS: ATORVASTATIN CALCIUM 80 MG TABLET PO SCH (22:28)
[2019-12-30] MEDS: TRAZODONE HCL 50 MG TABLET PO SCH (22:28)
[2019-12-31] MEDS: PANTOPRAZOLE SODIUM 40 MG TABLET.DR PO SCH (06:00)
[2019-12-31] MEDS: IPRATROPIUM/ALBUTEROL 0.5-2.5 MG/3 ML AMPUL NEB SCH ×2 (07:50→16:19)
[2019-12-31] MEDS: DOCUSATE SODIUM 100 MG CAPSULE PO SCH (12:15)
[2019-12-31] MEDS: POTASSIUM CHLORIDE 10 MEQ TABLET.ER PO SCH (12:15)
[2019-12-31] MEDS: FLUTICASONE/VILANTEROL 200-25 MCG/DOSE IH SCH (12:15)
[2019-12-31] MEDS: ASPIRIN 81 MG TABLET, CHEWABLE PO SCH (12:15)
[2019-12-31] MEDS: NYSTATIN/DEXAMETH/DIPHEN SUSP 120 ML PO SCH ×2 (12:15→13:04)
[2019-12-31] MEDS: UMECLIDINIUM BROMIDE 62.5 MCG/DOSE IH SCH (12:15)
[2019-12-31] MEDS: FERROUS SULFATE 325 MG TABLET PO SCH (12:15)
[2019-12-31] MEDS: MULTIVITAMIN TABLET PO SCH (12:16)
[2019-12-31] MEDS: CLOPIDOGREL BISULFATE 75 MG TABLET PO SCH (12:16)
[2019-12-31] MEDS: FUROSEMIDE INJ/PF 40 MG/4 ML SDV IV SCH (12:42)
--- NOTE | 2019-12-31 12:42 | PDOC DISCHARGE SUMMARY ---
Impression - Admit/DC Date/PCP Admission Date/Primary Care Provider: 12/13/19 20:15 AYAN YA MD Discharge Date: 12/31/19 - Discharge Diagnosis (1) Pleural effusion Is this a current diagnosis for this admission?: Yes (2) Acute and chronic respiratory failure Is this a current diagnosis for this admission?: Yes (3) COPD (chronic obstructive pulmonary disease) Is this a current diagnosis for this admission?: Yes (4) Encephalopathy acute Is this a current diagnosis for this admission?: Yes (5) Lung cancer Is this a current diagnosis for this admission?: Yes (6) Acute renal failure Is this a current diagnosis for this admission?: Yes (7) Sepsis Is this a current diagnosis for this admission?: Yes (8) UTI (urinary tract infection) Is this a current diagnosis for this admission?: Yes (9) Squamous cell carcinoma of right lung Is this a current diagnosis for this admission?: Yes - Additional Information Resuscitation Status: Full Code Referrals: AYAN YA MD [Primary Care Provider] - DOM GUARDADO MD [ACTIVE STAFF] - Prescriptions: Trazodone HCl [Desyrel 50 mg Tablet] 75 mg PO QHS 20 Days tablet Ipratropium/Albuterol Sulfate [Duoneb 3 ml Ampul] 3 ml NEB [id number] PRN #60 ml PRN Reason: WHEEZING/SHORTNESS OF BREATH Fluticasone Propionate [Flovent Hfa 110 Mcg Inhalation Aerosol 12 gm] 2 puff IH Q12 #2 inhaler Potassium Chloride [Klor-Con 10 Meq Tablet ER] 20 meq PO DAILY #30 tablet.er Furosemide [Lasix 20 mg Tablet] 20 mg PO QAM #30 tablet Home Medications: Aspirin [Adult Low Dose Aspirin EC] 81 mg PO DAILY 12/14/19 Atorvastatin Calcium [Lipitor 80 mg Tablet] 80 mg PO DAILY 12/14/19 Clopidogrel Bisulfate [Plavix 75 mg Tablet] 75 mg PO DAILY 12/14/19 Ferrous Sulfate [Ferosul] 325 mg PO DAILY 12/14/19 Multivitamin [Multiple Vitamins] 1 tab PO DAILY 12/14/19 Omeprazole 40 mg PO QAM 12/14/19 Oxycodone HCl [Oxy-Ir 5 mg Tablet] 10 mg PO Q4HP PRN 12/14/19 Umeclidinium [place] [Incruse Ellipta] 1 puff IH DAILY 12/14/19 Fluticasone Propionate [Flovent Hfa 110 Mcg Inhalation Aerosol 12 gm] 2 puff IH Q12 #2 inhaler 12/31/19 Furosemide [Lasix 20 mg Tablet] 20 mg PO QAM #30 tablet 12/31/19 Ipratropium/Albuterol Sulfate [Duoneb 3 ml Ampul] 3 ml NEB RTQ6HP PRN #60 ml 12/31/19 Potassium Chloride [Klor-Con 10 Meq Tablet ER] 20 meq PO DAILY #30 tablet.er 12/31/19 Trazodone HCl [Desyrel 50 mg Tablet] 75 mg PO QHS 20 Days tablet 12/31/19 History of Present Illiness History of Present Illness: CORBY GROVES is a 79 year old male with a past medical history which is obtained by the record as the patient has baseline confusion history of lung cancer status post lobectomy with current chemotherapy and radiation. History of present illness is obtained by emergency room provider and nursing. He presented with worsening shortness of breath from baseline prompting a primary care evaluation for covid which is pending. He otherwise presents with fever and dysuria. In the emergency department he is found to have fever, hypotension, tachycardia, and dysuria. He awake and alert but vague denying complaints or pain, denies shortness of breath, his chest x-ray shows COPD and scarring with chronic changes. He is placed on coated precautions he receives treatment of UTI with sepsis and is referred to the hospitalist for admission. Hospital Course Hospital Course: Patient has had a complicated course in the hospital. Initially admitted for treatment of UTI with sepsis. Later thought to have a pneumonia though CTA does not show any clear pneumonia chest shows large right pleural effusion. I do not believe patient really had a pneumonia. It is also uncertain that patient truly had any component of acute diastolic heart failure even despite elevated BNP. Evaluated by cardiology. Unfortunately, echocardiogram was of very poor quality. Started on broad-spectrum antibiotics. Blood cultures were negative but urine culture grew Klebsiella pneumonia and E. coli. Patient went into significant respiratory distress and also noted hypoxic and hypotensive. He was transferred to the ICU. Required pressors on dopamine briefly however it is undetermined if patient was not septic shock. Patient was tested for COVID19 which was negative. Patient's became very hypoxic requiring intubation for acute hypoxic respiratory failure. He was intubated for a few days and later extubated. Chest tube was placed to his right lung which seems to have drained transudate of fluid on fluid analysis. Fluid culture was negative. Once the chest tube stopped draining the chest tube was removed and repeat x-ray showed clearance of the pleural effusion. It is suspected that patient's pleural effusion may have been secondary to his right-sided squamous cell cancer for which he is currently on Opdivo in the outpatient setting. Follows with Dr. Guardado who will continue to follow patient once he is discharged home. Patient's given some Lasix in an attempt to prevent recurrence. Patient noticed to frequently get agitated and aggressive which is partly also secondary to his personality. Required some Thorazine during hospitalization. Currently on trazodone which will also help with his sundowning and insomnia at nighttime. Possible that some component of delirium might be playing a role. However he does have a history of such behaviors and may simply be a personality issue. Patient takes rescue nebulizers as well as LAMA for his COPD. I have added fluticasone inhaler to his regimen. Patient is saturating well on 1 L nasal cannula today. Notably uses 2 L nasal cannula at home. Patient is very uncooperative with medical plan and recommendations from myself and other healthcare providers. He often refuses medications. He has also refused to work with physical therapy on several occasions including today. At this point, patient will be discharged home with home health. Physical Exam Vital Signs: Temp Pulse Resp BP Pulse Ox 97.9 F 68 19 134/69 H 96 12/31/19 03:23 12/31/19 11:41 12/31/19 11:41 12/31/19 11:41 12/31/19 07:52 Intake & Output 12/30/19 12/31/19 01/01/20 06:59 06:59 06:59 Intake Total 1076 354 Output Total 1025 Balance 1076 -671 Weight 87.8 kg 87.5 kg General appearance: PRESENT: no acute distress, cooperative Neck exam: ABSENT: JVD Respiratory exam: PRESENT: crackles - very mild, symmetrical, unlabored. ABSENT: accessory muscle use, retraction, tachypnea, wheezes Cardiovascular exam: PRESENT: RRR, +S1, +S2. ABSENT: tachycardia GI/Abdominal exam: PRESENT: soft. ABSENT: rebound, rigid, tenderness Psychiatric exam: ABSENT: anxious Results Laboratory Results: WBC 9.2 10^3/uL (4.0-10.5) 12/30/19 09:27 RBC 3.05 10^6/uL (4.35-5.55) L 12/30/19 09:27 Hgb 9.8 g/dL (13.5-17.0) L 12/30/19 09:27 Hct 28.8 % (37.9-51.0) L 12/30/19 09:27 MCV 95 fl (80-97) 12/30/19 09:27 MCH 32.1 pg (27.0-33.4) 12/30/19 09: MCHC 34.0 g/dL (32.0-36.0) 12/30/19 09:27 RDW 16.5 % (11.5-14.0) H 12/30/19 09:27 Plt Count 169 10^3/uL (150-450) 12/30/19 09:27 Lymph % (Auto) 8.9 % (13-45) L 12/26/19 04:45 [place] % (Auto) 4.6 % (3-13) 12/26/19 04:45 Eos % (Auto) 0.1 % (0-6) 12/26/19 04:45 Baso % (Auto) 0.0 % (0-2) 12/26/19 04:45 Absolute Neuts (auto) 6.7 10^3/uL (1.7-8.2) 12/26/19 04:45 Absolute Lymphs (auto) 0.7 10^3/uL (0.5-4.7) 12/26/19 04:45 Absolute Monos (auto) 0.4 10^3/uL (0.1-1.4) 12/26/19 04:45 Absolute Eos (auto) 0.0 10^3/uL (0.0-0.6) 12/26/19 04:45 Absolute Basos (auto) 0.0 10^3/uL (0.0-0.2) 12/26/19 04:45 Total Counted 100 12/23/19 03:28 Seg Neutrophils % 86.4 % (42-78) H 12/26/19 04:45 Seg Neuts % (Manual) 88 % (42-78) H 12/23/19 03:28 Band Neutrophils % 4 % (3-5) 12/19/19 03:30 Lymphocytes % (Manual) 8 % (13-45) L 12/23/19 03:28 Monocytes % (Manual) 4 % (3-13) 12/23/19 03:28 Eosinophils % (Manual) 0 % (0-6) 12/23/19 03:28 Basophils % (Manual) 0 % (0-2) 12/23/19 03:28 Metamyelocytes % 3 % (0-1) H 12/13/19 15:28 Abs Neuts (Manual) 6.1 10^3/uL (1.7-8.2) 12/23/19 03:28 Abs Lymphs (Manual) 0.6 10^3/uL (0.5-4.7) 12/23/19 03:28 Abs Monocytes (Manual) 0.3 10^3/uL (0.1-1.4) 12/23/19 03:28 Absolute Eos (Manual) 0.0 10^3/uL (0.0-0.6) 12/23/19 03:28 Abs Basophils (Manual) 0.0 10^3/uL (0.0-0.2) 12/23/19 03:28 Toxic Granulation SLIGHT 12/23/19 03:28 Toxic Vacuolation Not Reportable 12/13/19 15:28 Dohle Bodies PRESENT 12/14/19 07:18 Large Platelets PRESENT 12/13/19 15:28 Platelet Comment ADEQUATE 12/23/19 03:28 Polychromasia SLIGHT 12/14/19 07:18 Poikilocytosis SLIGHT 12/13/19 15:28 Anisocytosis SLIGHT 12/23/19 03:28 Tear Drop Cells SLIGHT 12/23/19 03:28 Ovalocytes SLIGHT 12/14/19 07:18 Schistocytes SLIGHT 12/23/19 03:28 RBC Morph Comment NORMO-CYTIC/CHROMIC 12/19/19 03:30 PT 13.7 SEC (11.4-15.4) 12/22/19 03:02 INR 1.05 12/22/19 03:02 Carbonic Acid 1.88 mmol/L (1.05-1.35) H 12/20/19 04:03 HCO3/H2CO3 Ratio 17:1 12/20/19 04:03 ABG pH 7.33 (7.35-7.45) L 12/20/19 04:03 ABG pCO2 62.4 mmHg (35-45) H 12/20/19 04:03 ABG pO2 75.2 mmHg (80-100) L 12/20/19 04:03 ABG HCO3 32.3 mmol/L (20-24) H 12/20/19 04:03 ABG Total CO2 34.2 mmol/L (23-27) H 12/20/19 04:03 ABG O2 Saturation 93.8 % (94-98) L 12/20/19 04:03 ABG Base Excess 4.6 mmol/L 12/20/19 04:03 VBG pH 7.33 (7.30-7.42) 12/13/19 16:38 VBG pCO2 46.4 mmHg (35-63) 12/13/19 16:38 VBG HCO3 24.0 mmol/L (20-32) 12/13/19 16:38 VBG Base Excess -2.1 mmol/L 12/13/19 16:38 FiO2 40% 12/20/19 04:03 Sodium 135.7 mmol/L (137-145) L 12/30/19 09:27 Potassium 4.2 mmol/L (3.6-5.0) 12/30/19 09:27 Chloride 100 mmol/L (98-107) 12/30/19 09:27 Carbon Dioxide 35 mmol/L (22-30) H 12/30/19 09:27 Anion Gap 1 (5-19) L 12/30/19 09:27 BUN 21 mg/dL (7-20) H 12/30/19 09:27 Creatinine 0.71 mg/dL (0.52-1.25) 12/30/19 09:27 Est GFR ( Amer) > 60 (>60) 12/30/19 09:27 Est GFR (MDRD) Non-Af > 60 (>60) 12/30/19 09:27 Glucose 99 mg/dL (75-110) 12/30/19 09:27 POC Glucose 147 mg/dL (70-110) H 12/23/19 05:19 Hemoglobin A1c % 5.8 % (4.7-6.0) 12/23/19 03:28 Lactic Acid 1.3 mmol/L (0.7-2.1) 12/15/19 02:57 Calcium 8.2 mg/dL (8.4-10.2) L 12/30/19 09:27 Phosphorus 2.7 mg/dL (2.5-4.5) 12/24/19 04:32 Magnesium 2.2 mg/dL (1.6-2.3) 12/30/19 09:27 Total Bilirubin 0.3 mg/dL (0.2-1.3) 12/16/19 04:39 Direct Bilirubin 0.0 mg/dL (0.0-0.4) 12/16/19 04:39 Neonat Total Bilirubin Not Reportable 12/16/19 04:39 Neonat Direct Bilirubin Not Reportable 12/16/19 04:39 Neonat Indirect Bili Not Reportable 12/16/19 04:39 AST 23 U/L (17-59) 12/16/19 04:39 ALT 14 U/L (<50) 12/16/19 04:39 Alkaline Phosphatase 60 U/L (38-126) 12/16/19 04:39 Lactate Dehydrogenase 285 U/L (120-246) H 12/27/19 04:45 Troponin I 0.075 ng/mL 12/13/19 19:20 NT-Pro-B Natriuret Pep 7380 pg/mL (<450) H 12/16/19 04:39 Total Protein 5.3 g/dL (6.3-8.2) L 12/27/19 20:43 Albumin 2.2 g/dL (3.5-5.0) L 12/16/19 04:39 Triglycerides 291 mg/dL (<150) H 12/19/19 03:30 Random Cortisol 15.40 ug/dL (None Established) 12/19/19 10:00 Urine Color YELLOW 12/13/19 17:26 Urine Appearance CLOUDY 12/13/19 17:26 Urine pH 5.0 (5.0-9.0) 12/13/19 17:26 Ur Specific [place] 1.010 12/13/19 17:26 Urine Protein 30 mg/dL (NEGATIVE) H 12/13/19 17:26 Urine Glucose (UA) NEGATIVE mg/dL (NEGATIVE) 12/13/19 17:26 Urine Ketones NEGATIVE mg/dL (NEGATIVE) 12/13/19 17:26 Urine Blood MODERATE (NEGATIVE) H 12/13/19 17:26 Urine Nitrite NEGATIVE (NEGATIVE) 12/13/19 17:26 Urine Bilirubin NEGATIVE (NEGATIVE) 12/13/19 17:26 Urine Urobilinogen 2.0 mg/dL (<2.0) H 12/13/19 17:26 Ur Leukocyte Esterase LARGE (NEGATIVE) H 12/13/19 17:26 Urine WBC (Auto) >182 /HPF 12/13/19 17:26 Urine RBC (Auto) 3 /HPF 12/13/19 17:26 Urine Bacteria (Auto) TRACE /HPF 12/13/19 17:26 Urine WBC Clumps MANY /HPF 12/13/19 17:26 Squamous Epi Cells Auto <1 /HPF 12/13/19 17:26 U Non-Squamous Epis Auto 1 /HPF 12/13/19 17:26 Urine Mucus (Auto) RARE /LPF 12/13/19 17:26 Urine Ascorbic Acid NEGATIVE (NEGATIVE) 12/13/19 17:26 Fluid Type PLEURAL 12/27/19 17:49 Fluid Source LUNG 12/27/19 17:49 Fluid Color YELLOW 12/27/19 17:49 Fluid Appearance SLIGHTLY HAZY 12/27/19 17:49 Fluid Viscosity SLIGHTLY VISCOUS 12/27/19 17:49 Fluid WBC 79 /uL 12/27/19 17:49 Fluid RBC 420 /uL 12/27/19 17:49 Fluid Seg Neutrophils 47 % 12/27/19 17:49 Fluid Lymphocytes 53 % 12/27/19 17:49 Fluid Monocytes 0 % 12/27/19 17:49 Fluid Eosinophils 0 % 12/27/19 17:49 Fluid Basophils 0 % 12/27/19 17:49 Fluid Glucose 148 mg/dL (.) 12/27/19 17:49 Fluid Total Protein 0.9 g/dL (.) 12/27/19 17:49 Fluid LDH 122 IU/L (.) 12/27/19 17:49 Time Trough Drawn 2140 12/16/19 21:40 Vancomycin Trough < 5.0 ug/mL (5.0-20.0) L 12/16/19 21:40 COVID-19 Source NASAL WASHING 12/15/19 13:00 COVID-19 ([place]) Not Detected (Not Detect) 12/15/19 13:00 Influenza A (Rapid) NEGATIVE (NEGATIVE) 12/13/19 17:26 Influenza B (Rapid) NEGATIVE (NEGATIVE) 12/13/19 17:26 Slides for Path Review SEE COMMENT 12/27/19 17:49 12/13/19 12/13/19 12/13/19 15:28 15:28 19:20 Troponin I 0.092 0.075 NT-Pro-B Natriuret Pep 4360 H 12/16/19 04:39 Troponin I NT-Pro-B Natriuret Pep 7380 H Impressions: Chest X-Ray 12/13/19 15:28 IMPRESSION: Postsurgical and radiation changes. Chest X-Ray 12/15/19 00:00 IMPRESSION: Increased bilateral basilar predominant (right greater than left) pleural and parenchymal opacities that obscure the contours of the hemidiaphragms and blunt the costophrenic sulci. Differential considerations include multifocal pneumonia with parapneumonic effusions and pulmonary edema. Chest/Abdomen CTA 12/15/19 00:00 IMPRESSION: 1. Slight increase in size of the right pleural effusion. 2. Development of a small left effusion since prior study. 3. No significant interval change in lung findings. 4. No pulmonary emboli. Head CT 12/15/19 00:00 IMPRESSION: No acute intracranial process. Mild microvascular ischemia. Ventricular enlargement out of proportion to U gyral atrophy suggests possible normal pressure hydrocephalus. EVIDENCE OF ACUTE STROKE: NO. Chest X-Ray 12/16/19 00:00 IMPRESSION: Status post placement of endotracheal tube and enteric tube as detailed above with otherwise stable appearance of the bilateral lungs. Chest X-Ray 12/16/19 07:48 IMPRESSION: Interval placement a right-sided central line. No other changes. Chest X-Ray 12/17/19 00:00 IMPRESSION: 1. Endotracheal tube terminates in the right mainstem bronchus. Recommend 3 to 4 cm retraction. 2. Small to moderate right pleural effusion. This appears slightly increased in size compared to the prior exam. There is also increased atelectasis or pneumonia in the right mid to lower lung. 3. Unchanged irregular opacity in the right perihilar region which may represent posttreatment changes. Chest X-Ray 12/17/19 07:54 IMPRESSION: Tubes and lines good positioning. No change from yesterday KUB X-Ray 12/17/19 07:54 IMPRESSION: Nasogastric tube tip in the stomach, side port at the GE junction Chest X-Ray 12/19/19 07:00 IMPRESSION: STABLE APPEARANCE OF THE CHEST. SUPPORT DEVICES UNCHANGED. Chest X-Ray 12/21/19 08:00 IMPRESSION: Grossly stable patchy right mid lung and basilar airspace disease with small bilateral effusions. Unchanged left retrocardiac and basilar opacities. Extubation. KUB X-Ray 12/22/19 08:45 IMPRESSION: Esophagogastric tube tip is below the diaphragm likely within the fundus of the stomach. Chest X-Ray 12/23/19 00:00 IMPRESSION: 1. No significant change Chest X-Ray 12/23/19 00:00 IMPRESSION: Decreased size of the right pleural effusion status post chest tube placement. No pneumothorax. Thoracentesis Ultrasound 12/23/19 00:00 IMPRESSION: SUCCESSFUL THORACENTESIS WITH CHEST TUBE PLACEMENT USING ULTRASOUND GUIDANCE. Chest X-Ray 12/25/19 10:02 IMPRESSION: Resolved right pleural effusion. No right pneumothorax. Right small caliber chest tube in place. Persistent small left pleural effusion with basilar airspace, unchanged from 12/23/2019 Chest X-Ray 12/26/19 08:47 IMPRESSION: STABLE APPEARANCE OF THE CHEST. Chest X-Ray 12/27/19 11:15 IMPRESSION: STABLE APPEARANCE OF THE CHEST. Chest X-Ray 12/27/19 18:09 IMPRESSION: No pneumothorax. Likely left lower lobe atelectasis. Chest X-Ray 12/28/19 00:00 IMPRESSION: No pneumothorax following right-sided chest tube removal. Chest X-Ray 12/28/19 04:56 IMPRESSION: No significant change. Chest X-Ray 12/28/19 12:47 IMPRESSION: No pneumothorax 2 hours following right-sided chest tube removal. No other interval change. Plan Time Spent: Greater than 30 Minutes Stroke Is this a Stroke Patient?: No Acute Heart Failure - Is this a Heart Failure Patient?: No
[2019-12-31 18:23] VITALS: BP 123/72
[2019-12-31] MEDS ORDERED: TRAZODONE HCL 50 MG TABLET PO SCH (22:00)
== END 2019-12-31 18:55 | disposition home health service (06) | DRG 870 ==
LOC: ER 15:22 → EH 20:15 → 5 22:30 → 3S 12-14 15:50 → ICU 12-15 16:20 → 3W 12-24 17:08
PROVIDERS: ADMIT Family Medicine; ATTEND Internal Medicine
PROC: 0W993ZZ Drainage of Right Pleural Cavity, Percutaneous Approach (ICD-10-PCS; 2019-12-13)
PROC: 5A1955Z Respiratory Ventilation, Greater than 96 Consecutive Hours (ICD-10-PCS; principal; 2019-12-15)
PROC: 0BH17EZ Insertion of Endotracheal Airway into Trachea, Via Natural or Artificial Opening (ICD-10-PCS; 2019-12-15)
PROC: 02HV33Z Insertion of Infusion Device into Superior Vena Cava, Percutaneous Approach (ICD-10-PCS; 2019-12-16)
PROC: 0DH67UZ Insertion of Feeding Device into Stomach, Via Natural or Artificial Opening (ICD-10-PCS; 2019-12-22)
DX: A41.9 Sepsis, unspecified organism (principal); G93.41 Metabolic encephalopathy; J96.21 Acute and chronic respiratory failure with hypoxia; C34.2 Malignant neoplasm of middle lobe, bronchus or lung; N39.0 Urinary tract infection, site not specified; N17.9 Acute kidney failure, unspecified; I44.2 Atrioventricular block, complete; E27.40 Unspecified adrenocortical insufficiency; J90 Pleural effusion, not elsewhere classified; F05 Delirium due to known physiological condition; J43.2 Centrilobular emphysema; I87.2 Venous insufficiency (chronic) (peripheral); B96.20 Unspecified Escherichia coli [E. coli] as the cause of diseases classified elsewhere; E78.5 Hyperlipidemia, unspecified; B96.1 Klebsiella pneumoniae [K. pneumoniae] as the cause of diseases classified elsewhere; D69.59 Other secondary thrombocytopenia; R13.10 Dysphagia, unspecified; I35.0 Nonrheumatic aortic (valve) stenosis; Z90.2 Acquired absence of lung [part of]; Z79.899 Other long term (current) drug therapy; Z87.891 Personal history of nicotine dependence; Z88.0 Allergy status to penicillin; Z78.1 Physical restraint status; Z99.81 Dependence on supplemental oxygen; Z79.82 Long term (current) use of aspirin; Z92.25 Personal history of immunosuppression therapy; Z95.0 Presence of cardiac pacemaker; I25.2 Old myocardial infarction; Z03.818 Encounter for observation for suspected exposure to other biological agents ruled out
CPT/HCPCS: 31500; 32557; 36415; 36556; 36600; 70450; 71045; 71275; 74018; 80048; 80053; 80202; 81001; 82533; 82803; 82945; 82962; 83036; 83605; 83615; 83735; 83880; 84100; 84155; 84157; 84478; 84484; 85025; 85027; 85610; 87040; 87070; 87075; 87086; 87088; 87186; 87205; 87635; 87804; 89050; 93005; 93010; 93306; 94002; 94003; 94640; 94660; 94799; 96361; 96365; 99232; 99291; C1729; C1758; C1769; C9113; J0696; J0743; J1265; J1630; J1644; J1720; J1940; J2270; J2704; J3010; J3230; J3360; J3370; J3475; J3480; J3486; J3490; J7030; J7040; J7050; J7060; J7120; J7121; J7620

== ENCOUNTER → 2020-05-22 | Outpatient (CLI) | payer MEDICARE ==
--- NOTE | 2020-05-22 15:57 | RADIOLOGY REPORT (SQ) ---
EXAM DESCRIPTION: CT CHEST WITH IMAGES COMPLETED DATE/TIME: 05/22/2020 3:19 pm REASON FOR STUDY: C34.2 MALIGNANT NEOPLASM OF MIDDLE LOBE, BRONCHUS OR LUNG C34.2 MALIGNANT NEOPLAS M OF MIDDLE LOBE, BRONCHUS OR LUNG COMPARISON: 12/15/2019 TECHNIQUE: CT scan of the chest performed using helical scanning technique with dynamic intravenous contrast injection. Images reviewed with lung, soft tissue and bone windows. Reconstructed coronal and sagittal MPR and MIP images reviewed. All images stored on PACS. All CT scanners at this facility use dose modulation, iterative reconstruction, and/or weight based d osing when appropriate to reduce radiation dose to as low as reasonably achievable (ALARA). [facility]: Dose Right [facility]: CareDose [facility]: Dose Right [facility]: Teradose 4D [facility]: atHomestars CONTRAST TYPE AND DOSE: See abdomen RENAL FUNCTION: See abdomen RADIATION DOSE: CT Rad equipment meets quality standard of care and radiation dose reduction techniq ues were employed. CTDIvol: 5.0 - 10.1 mGy. DLP: 936 mGy-cm. . LIMITATIONS: None. FINDINGS: LUNGS AND PLEURA: Post treatment changes in the right upper lobe and hilum. Grossly stabl e compared to prior exam. There are more focal nodular opacity is along the posterior right lower lo be, largest measuring 12 mm (series 6, image 83) these are increased in size from prior. There is mi ld interval increase in size of the moderate to large right-sided pleural effusion. Interval increas e in size of the left lower lobe mass measuring 3.6 x 2.7 cm (series 6, image 67), previously measuri ng 18 mm. There are patchy left basilar ground-glass opacities 12 mildly increased from prior. Ananya re centrilobular and panacinar emphysema. No pneumothorax. HILAR AND MEDIASTINAL STRUCTURES: Grossly stable appearance of the right hilar consolidation. HEART AND VASCULAR STRUCTURES: Normal heart size. Scattered coronary atherosclerosis. Evidence of a ortic valvular prostheses. No significant pericardial effusion. No central pulmonary embolus. Mild dilation of the ascending aorta measuring up to 3.7 cm. HARDWARE: Aortic valvular prostheses. Metallic clips within the right upper lobe. UPPER ABDOMEN: No significant findings. Limited exam. THYROID AND OTHER SOFT TISSUES: No masses. No adenopathy. BONES: No acute bony abnormality. No suspicious lytic or blastic osseous lesions. OTHER: No other significant finding. IMPRESSION: 1. Grossly stable post treatment change within the right hilum and right apical mass. New nodular opacities along the posterior right lower lobe, largest measuring 12 mm, suspicious for m alignancy. PET-CT could be considered for further characterization. 2. Interval increase in size of the left lower lobe mass measuring up to 3.6 cm, highly suspicious f or residual malignancy. 3. Moderate right-sided pleural effusion, mildly increased from prior. TECHNICAL DOCUMENTATION: JOB ID: [id number] Quality ID # [id number]: Final reports with documentation of one or more dose reduction techniques (e.g., Au tomated exposure control, adjustment of the mA and/or kV according to patient size, use of iterative reconstruction technique) 2010 [employer]- All Rights Reserved Reading location - IP/workstation name: [email or web address]
--- NOTE | 2020-05-22 16:21 | RADIOLOGY REPORT (SQ) ---
EXAM DESCRIPTION: CT ABD/PELVIS WITH IV ONLY IMAGES COMPLETED DATE/TIME: 05/22/2020 3:19 pm REASON FOR STUDY: C34.2 MALIGNANT NEOPLASM OF MIDDLE LOBE, BRONCHUS OR LUNG C34.2 MALIGNANT NEOPLAS M OF MIDDLE LOBE, BRONCHUS OR LUNG COMPARISON: 11/22/2019. TECHNIQUE: CT scan of the abdomen and pelvis performed using helical scanning technique with dynamic intravenous contrast injection. No oral contrast. Images reviewed with lung, soft tissue, and bone windows. Reconstructed coronal and sagittal MPR images reviewed. Delayed images for evaluation of the urinary system also acquired. All images stored on PACS. All CT scanners at this facility use dose modulation, iterative reconstruction, and/or weight based d osing when appropriate to reduce radiation dose to as low as reasonably achievable (ALARA). [facility]: Dose Right [facility]: CareDose [facility]: Dose Right [facility]: Teradose 4D [facility]: Notable Limited CONTRAST TYPE AND DOSE: contrast/concentration: Isovue 350.00 mmol/ml; Total Contrast Delivered: 82. 0 ml; Total Saline Delivered: 43.0 ml RENAL FUNCTION: Creatinine 0.8. RADIATION DOSE: . LIMITATIONS: None. FINDINGS: LOWER CHEST: See separate report of the CT of the chest. LIVER: Normal size. No masses. No dilated ducts. SPLEEN: Normal size. No focal lesions. PANCREAS: No masses. No significant calcifications. No adjacent inflammation or peripancreatic fluid collections. Pancreatic duct not dilated. GALLBLADDER: No identified stones by CT criteria. No inflammatory changes to suggest cholecystitis. ADRENAL GLANDS: No significant masses or asymmetry. RIGHT KIDNEY AND URETER: Cortical cyst. No solid masses. No significant calcifications. No hydro nephrosis or hydroureter. LEFT KIDNEY AND URETER: Cortical cyst. No solid masses. No significant calcifications. No hydron ephrosis or hydroureter. AORTA AND VESSELS: No aneurysm. No dissection. Renal arteries, SMA, celiac without stenosis. RETROPERITONEUM: No retroperitoneal adenopathy, hemorrhage or masses. BOWEL AND PERITONEAL CAVITY: No masses or inflammatory changes. No free fluid or peritoneal masses. APPENDIX: Normal. PELVIS: No mass. No free fluid. Normal bladder. ABDOMINAL WALL: No masses. No hernias. BONES: No significant or acute findings. Hardware in the left hip. OTHER: No other significant finding. IMPRESSION: NO SIGNIFICANT OR ACUTE FINDING IN THE ABDOMEN OR PELVIS ON CT SCAN WITH IV CONTRAST. I NCIDENTAL RENAL CORTICAL CYSTS. NO EVIDENCE OF METASTATIC INVOLVEMENT IN THE ABDOMEN OR PELVIS. TECHNICAL DOCUMENTATION: JOB ID: [id number] Quality ID # [id number]: Final reports with documentation of one or more dose reduction techniques (e.g., Au tomated exposure control, adjustment of the mA and/or kV according to patient size, use of iterative reconstruction technique) 2010 [employer]- All Rights Reserved Reading location - IP/workstation name: [email or web address]
== END ==
LOC: RAD 05-17 09:29
PROVIDERS: ATTEND Internal Medicine
DX: C34.2 Malignant neoplasm of middle lobe, bronchus or lung (principal); J90 Pleural effusion, not elsewhere classified
CPT/HCPCS: 71260; 74177; 82565

== ENCOUNTER → 2020-06-13 | Outpatient (CLI) | payer MEDICARE ==
[2020-06-13 13:50] LABS: ABSOLUTE EOSINOPHILS # (AUTO) 0.2 10^3/uL (0.0-0.6); ABSOLUTE LYMPHOCYTES (AUTO) 1.6 10^3/uL (0.5-4.7); ABSOLUTE MONOCYTES (AUTO) 0.6 10^3/uL (0.1-1.4); BASOPHILS % (AUTO) 0.5 % (0-2); EOSINOPHILS % (AUTO) 2.1 % (0-6); HEMATOCRIT 36.9 % (37.9-51.0); HEMOGLOBIN 12.4 g/dL (13.5-17.0); LYMPHOCYTES % (AUTO) 21.9 % (13-45); MEAN CORPUSCULAR HEMOGLOBIN 29.7 pg (27.0-33.4); MEAN CORPUSCULAR HGB CONC 33.7 g/dL (32.0-36.0); MEAN CORPUSCULAR VOLUME 88 fl (80-97); MONOCYTES % (AUTO) 7.6 % (3-13); PLATELET COUNT 165 10^3/uL (150-450); RED BLOOD COUNT 4.19 10^6/uL (4.35-5.55); RED CELL DISTRIBUTION WIDTH 16.3 % (11.5-14.0); SEGMENTED NEUTROPHILS % (AUTO) 67.9 % (42-78); TOTAL CELLS COUNTED % (AUTO) 100 %; WHITE BLOOD COUNT 7.3 10^3/uL (4.0-10.5)
[2020-06-13 14:09] LABS: ALBUMIN 3.6 g/dL (3.5-5.0); ALKALINE PHOSPHATASE 100 U/L (38-126); ANION GAP 12 (5-19); ASPARTATE AMINO TRANSFERASE 25 U/L (17-59); BILIRUBIN,DIRECT 0.4 mg/dL (0.0-0.4); BILIRUBIN,TOTAL 0.7 mg/dL (0.2-1.3); BLOOD UREA NITROGEN 17 mg/dL (7-20); CALCIUM 9.8 mg/dL (8.4-10.2); CARBON DIOXIDE 24 mmol/L (22-30); CHLORIDE 104 mmol/L (98-107); CHOLESTEROL 183.44 mg/dL (0-200); GLUCOSE 116 mg/dL (75-110); POTASSIUM 4.1 mmol/L (3.6-5.0); TOTAL PROTEIN 7.3 g/dL (6.3-8.2); TRIGLYCERIDES 165 mg/dL (<150)
[2020-06-13 14:20] LABS: DIRECT LDL 117 mg/dL (<100)
== END ==
LOC: OD 12:20
PROVIDERS: ATTEND Family Medicine Geriatric Medicine
DX: E78.5 Hyperlipidemia, unspecified (principal); J44.9 Chronic obstructive pulmonary disease, unspecified; Z79.899 Other long term (current) drug therapy
CPT/HCPCS: 36415; 80053; 80061; 85025